=== PATIENT | female | born 1940 | race Caucasian/White ===

== ENCOUNTER → 2016-09-21 | Outpatient (REF) | payer MEDICARE, BC ==
[2016-09-21 17:39] LABS: ALBUMIN 3.3 GM/DL (3.2-5.2); ALBUMIN/GLOBULIN RATIO 0.83 (1.00-1.93); ALKALINE PHOSPHATASE 128 U/L (45-117); ALT/SGPT 38 U/L (12-78); ANION GAP 10 MEQ/L (8-16); AST/SGOT 53 U/L (15-37); BILIRUBIN,TOTAL 1.6 MG/DL (0.2-1.0); BLOOD UREA NITROGEN 17 MG/DL (7-18); CALCIUM LEVEL 8.7 MG/DL (8.8-10.2); CARBON DIOXIDE LEVEL 28 MEQ/L (21-32); CHLORIDE LEVEL 104 MEQ/L (98-107); CHOLESTEROL LEVEL 170 MG/DL (<200); CREATININE FOR GFR 0.94 MG/DL (0.55-1.02); GLOMERULAR FILTRATION RATE > 60.0 (>39); GLUCOSE, FASTING 122 MG/DL (83-110); POTASSIUM SERUM 4.1 MEQ/L (3.5-5.1); SODIUM LEVEL 142 MEQ/L (136-145); TOTAL PROTEIN 7.3 GM/DL (6.4-8.2); TRIGLYCERIDES LEVEL 107 MG/DL (<150)
[2016-09-21 17:45] LABS: BASO % 0.4 % (0.0-1.0); EOS # 0.3 K/mm3 (0.0-0.50); EOS % 5.7 % (0.0-3.0); LARGE UNSTAINED CELL # 0.2 K/mm3 (0.0-0.4); LARGE UNSTAINED CELL % 3.6 % (0.0-4.0); LYMPH # 1.6 K/mm3 (1.5-4.5); LYMPH % 33.4 % (24.0-44.0); MEAN CORPUSCULAR HEMOGLOBIN 35.2 pg (27.0-33.0); MEAN CORPUSCULAR HGB CONC 33.3 g/dl (32.0-36.5); MEAN CORPUSCULAR VOLUME 105.7 fl (80.0-96.0); MONO # 0.3 K/mm3 (0.0-0.8); MONO % 6.8 % (0.0-5.0); NEUTROPHILS # 2.5 K/mm3 (1.8-7.7); NEUTROPHILS % 50.1 % (36.0-66.0); PLATELET COUNT, AUTOMATED 143 k/mm3 (150-450); RED CELL DISTRIBUTION WIDTH 13.1 % (11.5-14.5); WHITE BLOOD COUNT 4.9 K/mm3 (4.0-10.0)
== END ==
LOC: M LABDRAWC 16:26
PROVIDERS: ATTEND Family Medicine
DX: E11.9 Type 2 diabetes mellitus without complications (principal); D51.3 Other dietary vitamin B12 deficiency anemia; E78.2 Mixed hyperlipidemia
CPT/HCPCS: 36415; 80053; 80061; 82043; 83036; 85025; 96372; J3420

== ENCOUNTER → 2017-01-18 | Outpatient (REF) | payer MEDICARE, BC ==
[2017-01-18 19:08] LABS: BASO % 0.8 % (0.0-1.0); EOS # 0.2 K/mm3 (0.0-0.50); EOS % 4.4 % (0.0-3.0); LARGE UNSTAINED CELL # 0.1 K/mm3 (0.0-0.4); LARGE UNSTAINED CELL % 2.3 % (0.0-4.0); LYMPH # 1.8 K/mm3 (1.5-4.5); MEAN CORPUSCULAR HGB CONC 33.4 g/dl (32.0-36.5); MEAN CORPUSCULAR VOLUME 107.8 fl (80.0-96.0); MONO # 0.3 K/mm3 (0.0-0.8); MONO % 6.4 % (0.0-5.0); NEUTROPHILS # 2.7 K/mm3 (1.8-7.7); NEUTROPHILS % 53.1 % (36.0-66.0); PLATELET COUNT, AUTOMATED 121 k/mm3 (150-450); RED CELL DISTRIBUTION WIDTH 13.3 % (11.5-14.5); WHITE BLOOD COUNT 5.1 K/mm3 (4.0-10.0)
[2017-01-18 19:54] LABS: ALBUMIN 2.9 GM/DL (3.2-5.2); ALBUMIN/GLOBULIN RATIO 0.74 (1.00-1.93); ALKALINE PHOSPHATASE 146 U/L (45-117); ALT/SGPT 34 U/L (12-78); ANION GAP 7 MEQ/L (8-16); AST/SGOT 41 U/L (15-37); BLOOD UREA NITROGEN 24 MG/DL (7-18); CALCIUM LEVEL 9.2 MG/DL (8.8-10.2); CARBON DIOXIDE LEVEL 29 MEQ/L (21-32); CHLORIDE LEVEL 104 MEQ/L (98-107); CHOLESTEROL LEVEL 158 MG/DL (<200); CREATININE FOR GFR 0.93 MG/DL (0.55-1.02); GLOMERULAR FILTRATION RATE > 60.0 (>39); GLUCOSE, FASTING 164 MG/DL (83-110); POTASSIUM SERUM 4.1 MEQ/L (3.5-5.1); SODIUM LEVEL 140 MEQ/L (136-145); TOTAL PROTEIN 6.8 GM/DL (6.4-8.2); TRIGLYCERIDES LEVEL 109 MG/DL (<150)
== END ==
LOC: M LABDRWCV 16:29
PROVIDERS: ATTEND Family Medicine
DX: E11.9 Type 2 diabetes mellitus without complications (principal); D51.3 Other dietary vitamin B12 deficiency anemia; E78.2 Mixed hyperlipidemia

== ENCOUNTER → 2017-04-19 | Outpatient (REF) | payer MEDICARE, BC ==
[2017-04-19 17:04] LABS: BASO % 0.5 % (0.0-1.0); EOS # 0.3 K/mm3 (0.0-0.50); EOS % 6.4 % (0.0-3.0); LARGE UNSTAINED CELL # 0.1 K/mm3 (0.0-0.4); LYMPH # 1.8 K/mm3 (1.5-4.5); LYMPH % 36.6 % (24.0-44.0); MEAN CORPUSCULAR HEMOGLOBIN 35.6 pg (27.0-33.0); MEAN CORPUSCULAR HGB CONC 33.4 g/dl (32.0-36.5); MEAN CORPUSCULAR VOLUME 106.6 fl (80.0-96.0); MONO # 0.3 K/mm3 (0.0-0.8); NEUTROPHILS # 2.2 K/mm3 (1.8-7.7); NEUTROPHILS % 47.5 % (36.0-66.0); PLATELET COUNT, AUTOMATED 130 k/mm3 (150-450); RED CELL DISTRIBUTION WIDTH 13.3 % (11.5-14.5); WHITE BLOOD COUNT 4.7 K/mm3 (4.0-10.0)
[2017-04-19 18:09] LABS: ALBUMIN/GLOBULIN RATIO 0.79 (1.00-1.93); BILIRUBIN,TOTAL 1.3 MG/DL (0.2-1.0); CALCIUM LEVEL 8.6 MG/DL (8.8-10.2); CREATININE FOR GFR 0.99 MG/DL (0.55-1.02); GLOMERULAR FILTRATION RATE 57.9 (>39); POTASSIUM SERUM 4.3 MEQ/L (3.5-5.1); TOTAL PROTEIN 6.8 GM/DL (6.4-8.2)
[2017-04-19 18:21] LABS: FOLATE 13.1 NG/ML
== END ==
LOC: M LABDRWCV 16:19
PROVIDERS: ATTEND Physician Assistant
DX: E11.9 Type 2 diabetes mellitus without complications (principal); D51.3 Other dietary vitamin B12 deficiency anemia; R74.8 Abnormal levels of other serum enzymes

== ENCOUNTER → 2017-07-21 | Outpatient (REF) | payer MEDICARE, BC ==
[2017-07-21 18:18] LABS: BASO % 0.6 % (0.0-1.0); EOS # 0.3 10^3/uL (0.0-0.50); EOS % 5.2 % (0.0-3.0); IMMATURE GRANULOCYTE % 0.2 % (0-0); LYMPH # 2.1 10^3/uL (1.5-4.5); LYMPH % 42.7 % (24.0-44.0); MEAN CORPUSCULAR HEMOGLOBIN 35.5 pg (27.0-33.0); MEAN CORPUSCULAR HGB CONC 33.3 g/dl (32.0-36.5); MEAN CORPUSCULAR VOLUME 106.5 fl (80.0-96.0); MONO # 0.6 10^3/uL (0.0-0.8); MONO % 11.2 % (0.0-5.0); NEUTROPHILS % 40.1 % (36.0-66.0); PLATELET COUNT, AUTOMATED 126 10^3/uL (150-450); RED CELL DISTRIBUTION WIDTH 13.5 % (11.5-14.5)
[2017-07-21 19:24] LABS: ALBUMIN/GLOBULIN RATIO 0.81 (1.00-1.93); CALCIUM LEVEL 9.1 MG/DL (8.8-10.2); CREATININE FOR GFR 1.11 MG/DL (0.55-1.02); GLOMERULAR FILTRATION RATE 50.6 (>39); POTASSIUM SERUM 4.2 MEQ/L (3.5-5.1); TOTAL PROTEIN 6.7 GM/DL (6.4-8.2)
== END ==
LOC: M LAB REF 17:09
PROVIDERS: ATTEND Family Medicine
DX: E78.2 Mixed hyperlipidemia (principal); E11.65 Type 2 diabetes mellitus with hyperglycemia; D51.3 Other dietary vitamin B12 deficiency anemia

== ENCOUNTER → 2017-10-20 | Outpatient (REF) | payer MEDICARE, BC ==
[2017-10-20 18:17] LABS: BASO % 0.8 % (0.0-1.0); EOS # 0.3 10^3/uL (0.0-0.50); EOS % 6.5 % (0.0-3.0); HEMATOCRIT 34.1 % (36.0-47.0); HEMOGLOBIN 11.4 g/dl (12.0-16.0); IMMATURE GRANULOCYTE % 0.2 % (0-3.0); LYMPH # 1.9 10^3/uL (1.5-4.5); LYMPH % 38.9 % (24.0-44.0); MEAN CORPUSCULAR HEMOGLOBIN 35.3 pg (27.0-33.0); MEAN CORPUSCULAR HGB CONC 33.4 g/dl (32.0-36.5); MEAN CORPUSCULAR VOLUME 105.6 fl (80.0-96.0); MONO # 0.5 10^3/uL (0.0-0.8); MONO % 11.1 % (0.0-5.0); NEUTROPHILS % 42.5 % (36.0-66.0); PLATELET COUNT, AUTOMATED 121 10^3/uL (150-450); RED BLOOD COUNT 3.23 10^6/uL (4.00-5.40); RED CELL DISTRIBUTION WIDTH 13.3 % (11.5-14.5); WHITE BLOOD COUNT 4.8 10^3/uL (4.0-10.0)
[2017-10-20 18:29] LABS: ESTIMATED AVERAGE GLUCOSE 143 MG/DL (60-110); HEMOGLOBIN A1c 6.6 %
[2017-10-20 18:59] LABS: VITAMIN B12 LEVEL 1134 PG/ML (247-911)
[2017-10-20 19:05] LABS: ALBUMIN 3.1 GM/DL (3.2-5.2); ALBUMIN/GLOBULIN RATIO 0.78 (1.00-1.93); ALKALINE PHOSPHATASE 145 U/L (45-117); ALT/SGPT 29 U/L (12-78); ANION GAP 8 MEQ/L (8-16); AST/SGOT 43 U/L (7-37); BILIRUBIN,TOTAL 1.1 MG/DL (0.2-1.0); BLOOD UREA NITROGEN 20 MG/DL (7-18); CALCIUM LEVEL 8.9 MG/DL (8.8-10.2); CARBON DIOXIDE LEVEL 29 MEQ/L (21-32); CHLORIDE LEVEL 104 MEQ/L (98-107); CHOLESTEROL LEVEL 157 MG/DL (<200); CHOLESTEROL RISK RATIO 2.616 (<5); CREATININE FOR GFR 0.96 MG/DL (0.55-1.30); GLOMERULAR FILTRATION RATE 59.8 (>39); GLUCOSE, FASTING 129 MG/DL (70-100); HDL CHOLESTEROL 60 MG/DL (>40); LDL CHOLESTEROL 76.8 MG/DL (<100); NON-HDL-C 97 MG/DL; POTASSIUM SERUM 4.3 MEQ/L (3.5-5.1); SODIUM LEVEL 141 MEQ/L (136-145); TOTAL PROTEIN 7.1 GM/DL (6.4-8.2); TRIGLYCERIDES LEVEL 101 MG/DL (<150)
[2017-10-21 13:43] LABS: REASON FOR REVIEW PLATELET MORPHOLOGY; SLIDE REVIEW Report; SOURCE PERIPHERAL SMEAR
== END ==
LOC: M LAB REF 16:20
DX: E11.22 Type 2 diabetes mellitus with diabetic chronic kidney disease (principal); D51.3 Other dietary vitamin B12 deficiency anemia; E78.2 Mixed hyperlipidemia
CPT/HCPCS: 84443

== ENCOUNTER → 2018-01-25 | Outpatient (REF) | payer MEDICARE, BC ==
[2018-01-25 19:02] LABS: ANION GAP 7 MEQ/L (8-16); BLOOD UREA NITROGEN 21 MG/DL (7-18); CALCIUM LEVEL 8.6 MG/DL (8.8-10.2); CARBON DIOXIDE LEVEL 27 MEQ/L (21-32); CHLORIDE LEVEL 107 MEQ/L (98-107); CHOLESTEROL LEVEL 149 MG/DL (<200); CHOLESTEROL RISK RATIO 2.525 (<5); CREATININE FOR GFR 1.08 MG/DL (0.55-1.30); FREE T4 1.28 NG/DL (0.76-1.46); GLOMERULAR FILTRATION RATE 52.2 (>39); GLUCOSE, FASTING 113 MG/DL (70-100); HDL CHOLESTEROL 59 MG/DL (>40); LDL CHOLESTEROL 72.6 MG/DL (<100); NON-HDL-C 90 MG/DL; POTASSIUM SERUM 4.3 MEQ/L (3.5-5.1); SODIUM LEVEL 141 MEQ/L (136-145); THYROID STIMULATING HORMONE 0.968 uIU/ML (0.358-3.740); TRIGLYCERIDES LEVEL 87 MG/DL (<150)
[2018-01-25 19:14] LABS: BASO % 0.7 % (0.0-1.0); EOS # 0.2 10^3/uL (0.0-0.50); EOS % 5.6 % (0.0-3.0); HEMATOCRIT 32.3 % (36.0-47.0); HEMOGLOBIN 10.9 g/dl (12.0-15.5); IMMATURE GRANULOCYTE % 0.2 % (0-3.0); LYMPH # 1.7 10^3/uL (1.5-4.5); LYMPH % 42.2 % (24.0-44.0); MEAN CORPUSCULAR HEMOGLOBIN 35.6 pg (27.0-33.0); MEAN CORPUSCULAR HGB CONC 33.7 g/dl (32.0-36.5); MEAN CORPUSCULAR VOLUME 105.6 fl (80.0-96.0); MONO # 0.5 10^3/uL (0.0-0.8); MONO % 11.7 % (0.0-5.0); NEUTROPHILS # 1.6 10^3/uL (1.8-7.7); NEUTROPHILS % 39.6 % (36.0-66.0); PLATELET COUNT, AUTOMATED 132 10^3/uL (150-450); RED BLOOD COUNT 3.06 10^6/uL (4.00-5.40); RED CELL DISTRIBUTION WIDTH 13.7 % (11.5-14.5); WHITE BLOOD COUNT 4.1 10^3/uL (4.0-10.0)
[2018-01-25 20:08] LABS: ESTIMATED AVERAGE GLUCOSE 126 MG/DL (60-110)
== END ==
LOC: M LABDRWAD 17:17
DX: E11.22 Type 2 diabetes mellitus with diabetic chronic kidney disease (principal); E78.2 Mixed hyperlipidemia; D64.9 Anemia, unspecified; N18.3 Chronic kidney disease, stage 3 (moderate)
CPT/HCPCS: 84443

== ENCOUNTER → 2018-04-18 | Outpatient (REF) | payer MEDICARE, BC ==
[2018-04-18 16:57] LABS: ANION GAP 9 MEQ/L (8-16); BLOOD UREA NITROGEN 22 MG/DL (7-18); CALCIUM LEVEL 9.1 MG/DL (8.8-10.2); CARBON DIOXIDE LEVEL 28 MEQ/L (21-32); CHLORIDE LEVEL 105 MEQ/L (98-107); CREATININE FOR GFR 0.95 MG/DL (0.55-1.30); GLOMERULAR FILTRATION RATE > 60.0 (>39); GLUCOSE, FASTING 97 MG/DL (70-100); POTASSIUM SERUM 4.3 MEQ/L (3.5-5.1); SODIUM LEVEL 142 MEQ/L (136-145)
[2018-04-18 17:04] LABS: ESTIMATED AVERAGE GLUCOSE 120 MG/DL (60-110); HEMOGLOBIN A1c 5.8 %
[2018-04-18 17:10] LABS: BASO % 0.4 % (0.0-1.0); EOS # 0.2 10^3/uL (0.0-0.50); EOS % 4.7 % (0.0-3.0); HEMATOCRIT 33.7 % (36.0-47.0); HEMOGLOBIN 11.4 g/dl (12.0-15.5); IMMATURE GRANULOCYTE % 0.2 % (0-3.0); LYMPH # 1.7 10^3/uL (1.5-4.5); LYMPH % 33.1 % (24.0-44.0); MEAN CORPUSCULAR HEMOGLOBIN 36.3 pg (27.0-33.0); MEAN CORPUSCULAR HGB CONC 33.8 g/dl (32.0-36.5); MEAN CORPUSCULAR VOLUME 107.3 fl (80.0-96.0); MONO # 0.6 10^3/uL (0.0-0.8); MONO % 12.4 % (0.0-5.0); NEUTROPHILS # 2.5 10^3/uL (1.8-7.7); NEUTROPHILS % 49.2 % (36.0-66.0); PLATELET COUNT, AUTOMATED 133 10^3/uL (150-450); RED BLOOD COUNT 3.14 10^6/uL (4.00-5.40); RED CELL DISTRIBUTION WIDTH 14.1 % (11.5-14.5); WHITE BLOOD COUNT 5.1 10^3/uL (4.0-10.0)
== END ==
LOC: M SFHCLERA 16:14
DX: E11.22 Type 2 diabetes mellitus with diabetic chronic kidney disease (principal)
CPT/HCPCS: 83036

== ENCOUNTER → 2018-07-28 | Outpatient (REF) | payer MEDICARE, BC ==
[2018-07-28 17:51] LABS: BASO % 0.8 % (0.0-1.0); EOS # 0.3 10^3/uL (0.0-0.50); EOS % 5.4 % (0.0-3.0); HEMATOCRIT 33.1 % (36.0-47.0); HEMOGLOBIN 10.9 g/dl (12.0-15.5); IMMATURE GRANULOCYTE % 0.2 % (0-3.0); LYMPH # 1.9 10^3/uL (1.5-4.5); LYMPH % 36.7 % (24.0-44.0); MEAN CORPUSCULAR HEMOGLOBIN 35.7 pg (27.0-33.0); MEAN CORPUSCULAR HGB CONC 32.9 g/dl (32.0-36.5); MEAN CORPUSCULAR VOLUME 108.5 fl (80.0-96.0); MONO # 0.6 10^3/uL (0.0-0.8); MONO % 11.2 % (0.0-5.0); NEUTROPHILS # 2.4 10^3/uL (1.8-7.7); NEUTROPHILS % 45.7 % (36.0-66.0); PLATELET COUNT, AUTOMATED 137 10^3/uL (150-450); RED BLOOD COUNT 3.05 10^6/uL (4.00-5.40); RED CELL DISTRIBUTION WIDTH 14.1 % (11.5-14.5); WHITE BLOOD COUNT 5.2 10^3/uL (4.0-10.0)
[2018-07-28 18:00] LABS: ANION GAP 7 MEQ/L (8-16); BLOOD UREA NITROGEN 22 MG/DL (7-18); CALCIUM LEVEL 9.1 MG/DL (8.8-10.2); CARBON DIOXIDE LEVEL 29 MEQ/L (21-32); CHLORIDE LEVEL 105 MEQ/L (98-107); CHOLESTEROL LEVEL 167 MG/DL (<200); CHOLESTEROL RISK RATIO 2.737 (<5); CREATININE FOR GFR 1.01 MG/DL (0.55-1.30); FREE T4 1.24 NG/DL (0.76-1.46); GLOMERULAR FILTRATION RATE 56.3 (>39); GLUCOSE, FASTING 97 MG/DL (70-100); HDL CHOLESTEROL 61 MG/DL (>40); LDL CHOLESTEROL 90 MG/DL (<100); NON-HDL-C 106 MG/DL; POTASSIUM SERUM 4.4 MEQ/L (3.5-5.1); SODIUM LEVEL 141 MEQ/L (136-145); TRIGLYCERIDES LEVEL 78 MG/DL (<150)
[2018-07-28 18:43] LABS: ESTIMATED AVERAGE GLUCOSE 126 MG/DL (60-110)
== END ==
LOC: M LABDRWCV 16:04
DX: Z00.00 Encounter for general adult medical examination without abnormal findings (principal); E78.2 Mixed hyperlipidemia; E11.22 Type 2 diabetes mellitus with diabetic chronic kidney disease; D51.3 Other dietary vitamin B12 deficiency anemia
CPT/HCPCS: 84443

== ENCOUNTER → 2018-10-27 | Outpatient (REF) | payer MEDICARE, BC ==
[2018-10-27 17:18] LABS: ALBUMIN 3.1 GM/DL (3.2-5.2); ALT/SGPT 36 U/L (12-78); BILIRUBIN,TOTAL 1.1 MG/DL (0.2-1.0); BLOOD UREA NITROGEN 20 MG/DL (7-18); CARBON DIOXIDE LEVEL 28 MEQ/L (21-32); CHLORIDE LEVEL 105 MEQ/L (98-107); CHOLESTEROL LEVEL 178 MG/DL (<200); CHOLESTEROL RISK RATIO 2.825 (<5); CREATININE FOR GFR 0.91 MG/DL (0.55-1.30); GLOMERULAR FILTRATION RATE > 60.0 (>39); GLUCOSE, FASTING 87 MG/DL (70-100); HDL CHOLESTEROL 63 MG/DL (>40); LDL CHOLESTEROL 97 MG/DL (<100); NON-HDL-C 115 MG/DL; POTASSIUM SERUM 4.5 MEQ/L (3.5-5.1); SODIUM LEVEL 140 MEQ/L (136-145); TOTAL PROTEIN 6.9 GM/DL (6.4-8.2); TRIGLYCERIDES LEVEL 90 MG/DL (<150)
[2018-10-27 18:13] LABS: HEMOGLOBIN A1c 5.3 %
[2018-10-27 18:17] LABS: CREATININE, URINE 28.4 MG/DL; MALB URINE SIEMENS < 5.0 MG/L; MAU/CREAT RATIO 17.6 MCG/MG (0.0-30.0)
== END ==
LOC: M LABDRAWC 16:00 → M LABDRWCV 16:00
PROVIDERS: ATTEND Family Medicine
DX: E11.22 Type 2 diabetes mellitus with diabetic chronic kidney disease (principal); E78.2 Mixed hyperlipidemia
CPT/HCPCS: 36415; 80053; 80061; 82043; 83036; 84443; 96372; J3420

== ENCOUNTER → 2019-01-25 | Outpatient (REF) | payer MEDICARE, BC ==
[2019-01-25 17:04] LABS: CALCIUM LEVEL 9.1 MG/DL (8.8-10.2); CREATININE FOR GFR 0.96 MG/DL (0.55-1.30); GLOMERULAR FILTRATION RATE 59.7 (>39); POTASSIUM SERUM 4.4 MEQ/L (3.5-5.1)
[2019-01-25 18:42] LABS: HEMOGLOBIN A1c 5.2 %
== END ==
LOC: M LABDRAWC 16:13
PROVIDERS: ATTEND Physician Assistant
DX: E11.22 Type 2 diabetes mellitus with diabetic chronic kidney disease (principal)
CPT/HCPCS: 36415; 80048; 83036; 96372; J3420

== ENCOUNTER → 2019-04-20 | Outpatient (REF) | payer MEDICARE, BC ==
[2019-04-20 13:26] LABS: CALCIUM LEVEL 8.9 MG/DL (8.8-10.2); CREATININE FOR GFR 1.11 MG/DL (0.55-1.30); GLOMERULAR FILTRATION RATE 50.5 (>39); POTASSIUM SERUM 4.4 MEQ/L (3.5-5.1)
== END ==
LOC: M LABDRWCV 12:07
PROVIDERS: ATTEND Internal Medicine Cardiovascular Disease
DX: I10 Essential (primary) hypertension (principal)

== ENCOUNTER → 2019-05-03 | Outpatient (REF) | payer MEDICARE, BC ==
[2019-05-03 20:46] LABS: BASO % 0.6 % (0.0-1.0); EOS # 0.2 10^3/uL (0.0-0.50); EOS % 5.1 % (0.0-3.0); HEMATOCRIT 34.1 % (36.0-47.0); HEMOGLOBIN 11.5 g/dl (12.0-15.5); LYMPH # 1.5 10^3/uL (1.5-4.5); LYMPH % 32.1 % (24.0-44.0); MEAN CORPUSCULAR HGB CONC 33.7 g/dl (32.0-36.5); MEAN CORPUSCULAR VOLUME 109.6 fl (80.0-96.0); MONO # 0.6 10^3/uL (0.0-0.8); NEUTROPHILS # 2.4 10^3/uL (1.8-7.7); PLATELET COUNT, AUTOMATED 119 10^3/uL (150-450); RED BLOOD COUNT 3.11 10^6/uL (4.00-5.40); WHITE BLOOD COUNT 4.7 10^3/uL (4.0-10.0)
[2019-05-03 20:48] LABS: BILIRUBIN,TOTAL 1.4 MG/DL (0.2-1.0); CALCIUM LEVEL 9.2 MG/DL (8.8-10.2); CHOLESTEROL RISK RATIO 2.611 (<5); CREATININE FOR GFR 1.01 MG/DL (0.55-1.30); FREE T4 1.45 NG/DL (0.76-1.46); GLOMERULAR FILTRATION RATE 56.3 (>39); POTASSIUM SERUM 4.6 MEQ/L (3.5-5.1); THYROID STIMULATING HORMONE 1.62 uIU/ML (0.358-3.740); TOTAL PROTEIN 6.9 GM/DL (6.4-8.2)
== END ==
LOC: M LABDRWCV 16:37
PROVIDERS: ATTEND Family Medicine
DX: E11.22 Type 2 diabetes mellitus with diabetic chronic kidney disease (principal); E78.2 Mixed hyperlipidemia

== ENCOUNTER → 2019-08-08 | Outpatient (REF) | payer MEDICARE, BC ==
[2019-08-08 17:07] LABS: ALBUMIN 2.9 GM/DL (3.2-5.2); BILIRUBIN,TOTAL 1.5 MG/DL (0.2-1.0); CREATININE FOR GFR 0.99 MG/DL (0.55-1.30); GLOMERULAR FILTRATION RATE 57.5 (>32); POTASSIUM SERUM 4.6 MEQ/L (3.5-5.1); TOTAL PROTEIN 6.8 GM/DL (6.4-8.2)
== END ==
LOC: M LABDRWCV 16:16
PROVIDERS: ATTEND Physician Assistant
DX: E11.22 Type 2 diabetes mellitus with diabetic chronic kidney disease (principal)

== ENCOUNTER → 2019-12-26 | Outpatient (REF) | payer MEDICARE, BC ==
[2019-12-26 11:29] LABS: BASO % 0.6 % (0.0-1.0); EOS # 0.3 10^3/uL (0.0-0.5); EOS % 5.3 % (0.0-3.0); HEMATOCRIT 32.5 % (36.0-47.0); HEMOGLOBIN 11.1 g/dl (12.0-15.5); LYMPH % 42.3 % (24.0-44.0); MEAN CORPUSCULAR HEMOGLOBIN 36.8 pg (27.0-33.0); MEAN CORPUSCULAR HGB CONC 34.2 g/dl (32.0-36.5); MEAN CORPUSCULAR VOLUME 107.6 fl (80.0-96.0); MONO # 0.6 10^3/uL (0.0-0.8); MONO % 11.8 % (0.0-5.0); NEUTROPHILS # 1.9 10^3/uL (1.5-8.5); NEUTROPHILS % 39.8 % (36.0-66.0); PLATELET COUNT, AUTOMATED 138 10^3/uL (150-450); RED BLOOD COUNT 3.02 10^6/uL (4.00-5.40); WHITE BLOOD COUNT 4.8 10^3/uL (4.0-10.0)
[2019-12-26 11:44] LABS: ALT/SGPT 26 U/L (12-78); BILIRUBIN,DIRECT 0.5 MG/DL (0.0-0.2); BILIRUBIN,TOTAL 1.5 MG/DL (0.2-1.0); BLOOD UREA NITROGEN 27 MG/DL (7-18); CARBON DIOXIDE LEVEL 27 MEQ/L (21-32); CHLORIDE LEVEL 107 MEQ/L (98-107); CHOLESTEROL LEVEL 169 MG/DL (<200); CREATININE FOR GFR 1.04 MG/DL (0.55-1.30); FREE T4 1.31 NG/DL (0.76-1.46); GLOMERULAR FILTRATION RATE 54.3 (>32); GLUCOSE, FASTING 111 MG/DL (70-100); HDL CHOLESTEROL 66 MG/DL (>40); LDL CHOLESTEROL 87 MG/DL (<100); NON-HDL-C 103 MG/DL; POTASSIUM SERUM 4.5 MEQ/L (3.5-5.1); SODIUM LEVEL 140 MEQ/L (136-145); TOTAL PROTEIN 7.2 GM/DL (6.4-8.2); TRIGLYCERIDES LEVEL 78 MG/DL (<150)
[2019-12-27 09:12] LABS: HEPATITIS B SURFACE ANTIGEN NEGATIVE (NEGATIVE)
[2019-12-27 09:38] LABS: HEPATITIS C VIRUS ABY INDEX 0.1 INDEX (<0.8)
[2019-12-27 09:40] LABS: HEPATITIS B CORE ANTIBODY IGM NEGATIVE (NEGATIVE)
[2019-12-27 09:42] LABS: HEPATITIS A ANTIBODY IGM NEGATIVE (NEGATIVE)
== END ==
LOC: M LABDRAWC 08:47
PROVIDERS: ATTEND Physician Assistant
DX: R94.5 Abnormal results of liver function studies (principal); E11.22 Type 2 diabetes mellitus with diabetic chronic kidney disease; E78.2 Mixed hyperlipidemia
CPT/HCPCS: 36415; 80053; 80061; 82248; 84439; 84443; 85025; 86705; 86709; 86803; 87340; 96372; J3420

== ENCOUNTER → 2020-03-13 | Outpatient (REF) | payer MEDICARE, BC ==
[2020-03-13 12:46] LABS: BASO % 0.5 % (0.0-1.0); EOS # 0.2 10^3/uL (0.0-0.5); EOS % 5.5 % (0.0-3.0); HEMATOCRIT 31.7 % (36.0-47.0); LYMPH # 1.4 10^3/uL (1.5-5.0); LYMPH % 32.1 % (24.0-44.0); MEAN CORPUSCULAR HEMOGLOBIN 36.5 pg (27.0-33.0); MEAN CORPUSCULAR HGB CONC 34.7 g/dl (32.0-36.5); MEAN CORPUSCULAR VOLUME 105.3 fl (80.0-96.0); MONO # 0.7 10^3/uL (0.0-0.8); MONO % 14.8 % (0.0-5.0); NEUTROPHILS # 2.1 10^3/uL (1.5-8.5); NEUTROPHILS % 46.6 % (36.0-66.0); PLATELET COUNT, AUTOMATED 109 10^3/uL (150-450); RED BLOOD COUNT 3.01 10^6/uL (4.00-5.40); WHITE BLOOD COUNT 4.4 10^3/uL (4.0-10.0)
[2020-03-13 13:03] LABS: CHOLESTEROL RISK RATIO 2.16 (<5); PERCENT SATURATION 47.3 % (13.2-45.0)
[2020-03-13 13:24] LABS: HEMOGLOBIN A1c 5.9 %
[2020-03-13 18:19] LABS: ALBUMIN 3.3 GM/DL (3.2-5.2); BILIRUBIN,TOTAL 1.4 MG/DL (0.2-1.0); CALCIUM LEVEL 9.6 MG/DL (8.8-10.2); CREATININE FOR GFR 1.35 MG/DL (0.55-1.30); GLOMERULAR FILTRATION RATE 40.2 (>32); POTASSIUM SERUM 5.7 MEQ/L (3.5-5.1); TOTAL PROTEIN 7.4 GM/DL (6.4-8.2)
== END ==
LOC: M LABDRAWC 11:29
PROVIDERS: ATTEND Family Medicine
DX: I48.91 Unspecified atrial fibrillation (principal); E11.22 Type 2 diabetes mellitus with diabetic chronic kidney disease; E78.2 Mixed hyperlipidemia

== ENCOUNTER → 2020-03-22 | Outpatient (REF) | payer MEDICARE, BC ==
[~2020-03-22] MED LIST: ASPI81TA26 PO; ATEN25TA PO; B-121KIT INJ; CO Q10CA PO; DIGO0.123 PO; METF-838; METF500T13 PO; TORS5TAB2 PO; XARE20TA PO
[2020-03-22 17:30] LABS: BASO % 0.4 % (0.0-1.0); EOS # 0.2 10^3/uL (0.0-0.5); HEMATOCRIT 32.9 % (36.0-47.0); HEMOGLOBIN 11.1 g/dl (12.0-15.5); LYMPH # 1.1 10^3/uL (1.5-5.0); LYMPH % 24.1 % (24.0-44.0); MEAN CORPUSCULAR HEMOGLOBIN 36.4 pg (27.0-33.0); MEAN CORPUSCULAR HGB CONC 33.7 g/dl (32.0-36.5); MEAN CORPUSCULAR VOLUME 107.9 fl (80.0-96.0); MONO # 0.6 10^3/uL (0.0-0.8); MONO % 13.6 % (0.0-5.0); NEUTROPHILS # 2.6 10^3/uL (1.5-8.5); NEUTROPHILS % 57.5 % (36.0-66.0); PLATELET COUNT, AUTOMATED 109 10^3/uL (150-450); RED BLOOD COUNT 3.05 10^6/uL (4.00-5.40); WHITE BLOOD COUNT 4.5 10^3/uL (4.0-10.0)
[2020-03-22 18:01] LABS: ALBUMIN 2.9 GM/DL (3.2-5.2); BILIRUBIN,TOTAL 1.3 MG/DL (0.2-1.0); CALCIUM LEVEL 8.8 MG/DL (8.8-10.2); CREATININE FOR GFR 1.44 MG/DL (0.55-1.30); GLOMERULAR FILTRATION RATE 37.3 (>32); MAGNESIUM LEVEL 1.5 MG/DL (1.8-2.4); POTASSIUM SERUM 4.9 MEQ/L (3.5-5.1); TOTAL PROTEIN 6.7 GM/DL (6.4-8.2)
== END ==
LOC: M LABDRAWC 15:45
PROVIDERS: ATTEND Internal Medicine
DX: E87.6 Hypokalemia (principal); E87.1 Hypo-osmolality and hyponatremia; E87.8 Other disorders of electrolyte and fluid balance, not elsewhere classified; I48.91 Unspecified atrial fibrillation; R74.8 Abnormal levels of other serum enzymes; Z79.82 Long term (current) use of aspirin

== ENCOUNTER → 2020-04-02 | Outpatient (REF) | payer MEDICARE, BC ==
[2020-04-02 13:25] LABS: HEMATOCRIT 33.4 % (36.0-47.0); HEMOGLOBIN 11.4 g/dl (12.0-15.5); MEAN CORPUSCULAR HEMOGLOBIN 36.4 pg (27.0-33.0); MEAN CORPUSCULAR HGB CONC 34.1 g/dl (32.0-36.5); MEAN CORPUSCULAR VOLUME 106.7 fl (80.0-96.0); PLATELET COUNT, AUTOMATED 119 10^3/uL (150-450); RED BLOOD COUNT 3.13 10^6/uL (4.00-5.40); WHITE BLOOD COUNT 10.1 10^3/uL (4.0-10.0)
[2020-04-02 13:45] LABS: LYMPHOCYTES 16 % (16-44); MONOCYTES 2 % (0-5); NEUTROPHILS 82 % (28-66); PLATELET ESTIMATE NORMAL (NORMAL)
[2020-04-02 14:02] LABS: ALBUMIN 2.6 GM/DL (3.2-5.2); BILIRUBIN,TOTAL 2.3 MG/DL (0.2-1.0); CALCIUM LEVEL 8.8 MG/DL (8.8-10.2); CHOLESTEROL RISK RATIO 2.69 (<5); CREATININE FOR GFR 1.67 MG/DL (0.55-1.30); GLOMERULAR FILTRATION RATE 31.4 (>32); POTASSIUM SERUM 4.1 MEQ/L (3.5-5.1); TOTAL PROTEIN 6.2 GM/DL (6.4-8.2)
== END ==
LOC: M LABDRAWC 13:07
PROVIDERS: ATTEND Family Medicine
DX: N18.3 Chronic kidney disease, stage 3 (moderate) (principal); E78.2 Mixed hyperlipidemia; I48.20 Chronic atrial fibrillation, unspecified; R74.8 Abnormal levels of other serum enzymes
CPT/HCPCS: 36415; 80053; 80061; 83690; 85025; 96372; J3420

== ENCOUNTER 2020-05-02 08:49 | Inpatient (IN) | payer MEDICARE, BC ==
[2020-05-02] VITALS (38 sets, daily range): BP systolic 64–126; BP diastolic 30–57
[~2020-05-02] VITALS: Ht 154.9 cm; Wt 96.8 kg
[2020-05-02] MEDS ORDERED: NS 500 ML IV ONE (09:15)
[2020-05-02] MEDS ORDERED: METF-838 (09:15)
[2020-05-02] MEDS ORDERED: XARE20TA PO (09:15)
[2020-05-02] MEDS ORDERED: DIGO0.123 PO (09:15)
[2020-05-02] MEDS ORDERED: NS 1,000 ML IV ONE (09:15)
[2020-05-02] MEDS ORDERED: TORS5TAB2 PO (09:15)
--- NOTE | 2020-05-02 09:28 | REPVR ---
PROCEDURE INFORMATION: Exam: CT Head Without Contrast Exam date and time: 05/02/2020 9:12 AM Age: 79 years old Clinical indication: Altered mental status/memory loss TECHNIQUE: Imaging protocol: Computed tomography of the head without contrast. Radiation optimization: All CT scans at this facility use at least one of these dose optimization techniques: automated exposure control; mA and/or kV adjustment per patient size (includes targeted exams where dose is matched to clinical indication); or iterative reconstruction. COMPARISON: No relevant prior studies available. FINDINGS: Brain: There is no acute intracranial hemorrhage or mass effect. Mild diffuse volume loss is within the range of normal for patient age. There are small vessel ischemic changes within the periventricular and subcortical white matter, but the normal fitzgerald/white matter delineation is maintained. Ventricles: Normal. No ventriculomegaly. Bones/joints: Unremarkable. No acute fracture. Sinuses: Visualized sinuses are unremarkable. No fluid levels. Mastoid air cells: Visualized mastoid air cells are well aerated. Soft tissues: Unremarkable. IMPRESSION: No acute intracranial hemorrhage or edema. Electronically signed by: Delicia Roa On 05/02/2020 09:28:26 AM
[2020-05-02] MEDS ORDERED: cefTRIAXone SOD 2 GM in D5W MINI-BAG PLUS 50 ML IV ONE (09:30)
[2020-05-02] MEDS ORDERED: NS 2,660 ML in IV 1 EA IV ONE (09:30)
[2020-05-02 10:23] LABS: VENOUS BASE EXCESS -1.9 (-2.0-2.0); VENOUS HCO3 23.3 MEQ/L (23.0-27.0); VENOUS PARTIAL PRESSURE CO2 41.6 mmHg (38.0-50.0); VENOUS PARTIAL PRESSURE O2 140.3 mmHg (30.0-50.0); VENOUS PH 7.367 UNITS (7.330-7.430); VENOUS STANDARD HCO3 22.9 MEQ/L; VENOUS TOTAL CO2 24.6 MEQ/L (24.0-28.0)
[2020-05-02 10:27] LABS: BILIRUBIN, URINE MANUAL NEGATIVE (NEGATIVE); GLUCOSE, URINE (UA) MANUAL NEGATIVE (NEGATIVE); KETONE, URINE MANUAL NEGATIVE (NEGATIVE); UROBILINOGEN, URINE MANUAL NORMAL (NORMAL)
[2020-05-02] MEDS ORDERED: ATEN25TA PO (10:40)
[2020-05-02] MEDS ORDERED: ASPI81TA26 PO (10:40)
[2020-05-02] MEDS ORDERED: CO Q10CA PO (10:40)
[2020-05-02] MEDS ORDERED: METF500T13 PO (10:42)
[2020-05-02 10:43] LABS: BASO % 0.2 % (0.0-1.0); EOS % 0.1 % (0.0-3.0); HEMATOCRIT 38.7 % (36.0-47.0); LYMPH # 0.9 10^3/uL (1.5-5.0); LYMPH % 5.3 % (24.0-44.0); MEAN CORPUSCULAR HEMOGLOBIN 36.6 pg (27.0-33.0); MEAN CORPUSCULAR HGB CONC 36.2 g/dl (32.0-36.5); MONO # 0.9 10^3/uL (0.0-0.8); MONO % 5.4 % (0.0-5.0); NEUTROPHILS # 14.6 10^3/uL (1.5-8.5); RED BLOOD COUNT 3.83 10^6/uL (4.00-5.40); WHITE BLOOD COUNT 16.6 10^3/uL (4.0-10.0)
[2020-05-02] MEDS ORDERED: B-121KIT INJ (10:48)
[2020-05-02 11:07] LABS: VENOUS PARTIAL PRESSURE O2 97.8 mmHg (30.0-50.0)
[2020-05-02 11:08] LABS: VENOUS BASE EXCESS -2.8 (-2.0-2.0); VENOUS HCO3 22.7 MEQ/L (23.0-27.0); VENOUS O2 SATURATION 97.2 % (60.0-80.0); VENOUS STANDARD HCO3 22.2 MEQ/L
[2020-05-02 11:12] LABS: RBC, URINE 0-1 /hpf (0-3)
[2020-05-02 11:13] LABS: AMORPHOUS SEDIMENT, URINE MOD AMOUNT (NEGATIVE)
[2020-05-02 11:14] LABS: SQUAMOUS EPITHELIAL CELL URINE SMALL AMOUNT /hpf (SMALL AMT)
[2020-05-02 11:19] LABS: ALBUMIN 1.5 GM/DL (3.2-5.2); BILIRUBIN,TOTAL 2.3 MG/DL (0.2-1.0); CALCIUM LEVEL 7.9 MG/DL (8.8-10.2); CREATININE FOR GFR 2.51 MG/DL (0.55-1.30); DIGOXIN LEVEL 1.9 NG/ML (0.5-2.0); GLOMERULAR FILTRATION RATE 19.6 (>32); THYROID STIMULATING HORMONE 4.47 uIU/ML (0.358-3.740); TOTAL PROTEIN 4.9 GM/DL (6.4-8.2); TROPONIN I 0.1 NG/ML (< 0.10)
--- NOTE | 2020-05-02 11:21 | REPVR ---
PROCEDURE INFORMATION: Exam: XR Chest, 1 View Exam date and time: 05/02/2020 11:09 AM Age: 79 years old Clinical indication: Shortness of breath TECHNIQUE: Imaging protocol: XR of the chest Views: 1 view. COMPARISON: No relevant prior studies available. FINDINGS: Lungs: There are low lung volumes. Pleural space: Unremarkable. No pleural effusion. No pneumothorax. Heart/Mediastinum: Unremarkable. No cardiomegaly. Diaphragm: There is apparent elevation of the right hemidiaphragm with there is an increased density as well as air-filled loops of bowel projecting over the right lower chest. Bones/joints: Unremarkable. IMPRESSION: There are low volumes with elevation the right hemidiaphragm and prominent bowel and increased density within the right lower chest. Comparison with preceding examinations is recommended. Electronically signed by: Delicia Roa On 05/02/2020 11:21:04 AM
[2020-05-02 11:22] LABS: BILIRUBIN,DIRECT 0.8 MG/DL (0.0-0.2); MB/CK RELATIVE INDEX 11.85 (< OR =4)
[2020-05-02 11:26] LABS: PLATELET COUNT, AUTOMATED 84 10^3/uL (150-450)
[2020-05-02] MEDS ORDERED: DEXTROSE 50% 50 ML SYRINGE IV STA (11:32)
[2020-05-02] MEDS ORDERED: CALCIUM CHLORIDE 10% 1 GM/10 ML SYR IV STA (11:32)
[2020-05-02] MEDS ORDERED: HumuLIN R (REGULAR) INSULIN (NovoLIN R) **100U/ML** PER UNIT IV ONE (11:45)
[2020-05-02] MEDS ORDERED: DOPamine 400 MG/500 ML BAG IN D5W (800MCG/ML) (J1265) As Ordered ONE (12:02)
[2020-05-02] MEDS ORDERED: DOPamine HCL 400 MG in IV 1 EA IV SCH ×2 (12:15→13:00)
[2020-05-02] MEDS ORDERED: DOPamine HCL 800 MG in IV 1 EA IV SCH (12:15)
[2020-05-02 12:48] LABS: INR 4.92
[2020-05-02 12:49] LABS: PARTIAL THROMBOPLASTIN TIME 60.6 SECONDS (25.0-38.4)
[2020-05-02] MEDS ORDERED: NS 1,000 ML IV SCH (13:18)
[2020-05-02 13:29] LABS: BACTERIA, URINE NONE SEEN
[2020-05-02] MEDS ORDERED: ALBUTEROL SULFATE 2.5 MG/0.5 ML INH NEB SOLN NEB PRN (13:30)
--- NOTE | 2020-05-02 13:35 | REPVR ---
PROCEDURE INFORMATION: Exam: CT Chest Without Contrast Exam date and time: 05/02/2020 1:03 PM Age: 79 years old Clinical indication: Other: Hypotension TECHNIQUE: Imaging protocol: Computed tomography of the chest without contrast. Radiation optimization: All CT scans at this facility use at least one of these dose optimization techniques: automated exposure control; mA and/or kV adjustment per patient size (includes targeted exams where dose is matched to clinical indication); or iterative reconstruction. COMPARISON: CR PORTABLE CHEST X-RAY 05/02/2020 11:09 AM FINDINGS: Lungs: Unremarkable. No consolidation. No masses. Pleural space: Unremarkable. No pneumothorax. No pleural effusion. Heart: Unremarkable. No cardiomegaly. No pericardial effusion. Aorta: Unremarkable. No aortic aneurysm. Lymph nodes: Unremarkable. No enlarged lymph nodes. Diaphragm: There is asymmetrical elevation of the right hemidiaphragm. Gallbladder and bile ducts: The gallbladder is surgically absent. Bones/joints: Unremarkable. No acute fracture. Soft tissues: There is extensive soft tissue induration involving the left lateral chest. IMPRESSION: 1. Extensive soft tissue induration involving the left lateral chest. 2. No acute thoracic abnormality. Electronically signed by: Delicia Roa On 05/02/2020 13:36:13 PM
--- NOTE | 2020-05-02 13:38 | REPVR ---
PROCEDURE INFORMATION: Exam: CT Abdomen And Pelvis Without Contrast Exam date and time: 05/02/2020 1:03 PM Age: 79 years old Clinical indication: Other: Hypotension TECHNIQUE: Imaging protocol: Computed tomography of the abdomen and pelvis without contrast. Radiation optimization: All CT scans at this facility use at least one of these dose optimization techniques: automated exposure control; mA and/or kV adjustment per patient size (includes targeted exams where dose is matched to clinical indication); or iterative reconstruction. COMPARISON: No relevant prior studies available. FINDINGS: Liver: Normal. No mass. Gallbladder and bile ducts: The gallbladder is surgically absent. Pancreas: There increased peripancreatic inflammatory changes, suggestive of acute pancreatitis. Spleen: Normal. No splenomegaly. Adrenals: There is diffuse nodular thickening of the left adrenal gland. Kidneys and ureters: Normal. No hydronephrosis. Stomach and bowel: Unremarkable. No obstruction. No mucosal thickening. Appendix: No evidence of appendicitis. Intraperitoneal space: Unremarkable. No free air. No significant fluid collection. Vasculature: There are coarse calcific atherosclerotic changes of the left anterior descending coronary artery. Lymph nodes: Unremarkable. No enlarged lymph nodes. Bladder: Unremarkable as visualized. Reproductive: Unremarkable as visualized. Bones/joints: Unremarkable. No acute fracture. Soft tissues: There is increased soft tissue induration along the left lateral breast/chest. IMPRESSION: Findings suggestive of acute pancreatitis. Correlation with serum amylase and lipase levels is recommended. Electronically signed by: Delicia Roa On 05/02/2020 13:38:30 PM
[2020-05-02] MEDS ORDERED: SOD POLYSTYRENE SULFONATE SUSP 30 GM/120 ML ENEMA PR ONE (13:45)
--- NOTE | 2020-05-02 13:54 | HPEPDOC ---
General Date of Admission Date of Service: May 02, 2020 Attending Physician: A Chief Complaint The patient is a 79-year-old female admitted with a reason for visit of [facility] History of Present Illness Ms. Stevens is a 79 year old elderly woman, with known history of diabetes mellitus type II, CAD 2009 PCI, Hypertension, CKD, stage ?; atrial fibrillation, with chronic anticoagulation with xarelto, presented to hospital due confusion. History provided by patient's , Jovanny Stevens. He mentioned that patient started to get sick early March and admitted at [facility], for hyponatremia and hyperkalemia, along with UTI. She was discharge home with antibiotics, but had been quite weak, no rehab placement. Patient had been doing fine after this hospitalization. However, in the past week, patient had been complaining of being weak, encouraged her to see a doctor but patient declined. He noticed that in the past 4 days, patient had been forge tful, but not outright confused. patient not eating or drinking well, but denies any vomiting, or abdominal pain. No mention of fever, or cough, or diarrhea. She was supposed to follow up with Dr. Akbar today. noticed that she has been sleeping a lot, which is unusual. She woke up today, sat on the bed, and noted she did not move and just sitting, not responding to him thus EMS was called. On arrival to ED, patient was severely hypotension, 80s systolic and hypothermic. patient was quite lethagic, almost obtunded as per ED. Given sepsis bolus, and initially BP improved but became hypotensive again and thus right central line placed, and started on dopamine and currently at 10 mcg. Work-up revealed patient had hyperkalemia, renal failure, severe lactic acidosis. CXR and CT head did not show acute findings. Noted elevated right hemidiaphragm per report. (unable to view any images in the system). Patient emprically started on IV rocephin [address] chest and abdomen due to severe lactic acidosis. I saw patient in ED, at bedside. Patient is more awake and able to speak, follows some commands, but unable to tell me much. Not in acute respiratory distress. Abdomen is soft, not tender, no rigidity. Home Medications Scheduled Aspirin (Aspirin EC) 81 Mg Tablet., 81 MG PO DAILY, (Reported) Atenolol (Atenolol) 25 Mg Tablet, 50 MG PO BID, (Reported) Cyanocobalamin (Vitamin B-12) (B-12 Compliance) 1,000 Mcg/1 Ml Kit, 1,000 MCG INJ MTHLY, (Reported) Digoxin (Digoxin) 125 Mcg Tablet, 125 MCG PO DAILY, (Reported) Metformin HCl (Metformin HCl) 500 Mg Tablet, 500 MG PO DAILY, (Reported) Rivaroxaban (Xarelto) 20 Mg Tablet, 20 MG PO QHS, (Reported) Torsemide (Torsemide) 5 Mg Tablet, 10 MG PO DAILY, (Reported) Ubidecarenone (Co Q-10) 10 Mg Capsule, 10 MG PO DAILY, (Reported) Allergies Coded Allergies: latex (Verified Allergy, Intermediate, RASH, 05/02/20) Past Medical History Medical History PAST MEDICAL HISTORY: Hypertension Diabetes mellitus type II CKD, unknown stage, not a dialysis patient Afib on xarelto CAD with PCI 2008 LAD stent PAST SURGICAL HISTORY: cholecystectomy (although unsure about this). tubal ligation. A-FIB/CHADSVASC A-FIB History Current/History of A-Fib/PAF?: No Current PO Anticoag Therapy: Yes Age/Risk Factor Scoring CHADSVASC: CHADSVASC Response (Comments) Value Age Risk Factor Age >/= 75 years old 2 Gender Risk Factor Female 1 Hx of CHF No 0 Hx of HTN Yes 1 Hx of Stroke/TIA/or VTE No 0 Hx of Diabetes Yes 1 Total 5 Treatment Treatment ordered: Holding Other Reason Anticoagulant not given: Other Other reason anticoagulant not: renal failure Review of Systems Constitutional: Denies: Chills, Fever, Night Sweats Eyes: Denies: Pain, Vision change ENT: Denies: Head Aches, Ear Pain, Dysphagia Skin: Denies: Rash, Lesions, Breakdown Pulmonary: Denies: Dyspnea, Cough Cardiovascular: Denies: Chest Pain, Palpitations, Orthopnea, Paroxysmal Noc. Dyspnea, Lt Headedness Gastrointestinal: Denies: Nausea, Vomiting, Abdominal Pain, Diarrhea Genitourinary: Denies: Dysuria, Frequency, Incontinence, Retention Hematologic: Denies: Bruising, Bleeding Excessively Musculoskeletal: Denies: Neck Pain, Back Pain, Joint Pain, Muscle Pain, Spasms Neurological: Denies: Weakness, Numbness, Change in speech, Confusion Psych: Reports: Mood Normal; Denies: Depression, Memory Issues Other systems Unable to obtain thorough ROS due to patient's current mental state Vital Signs Vital Signs Date Time Temp Pulse Resp B/P (MAP) Pulse Ox O2 Delivery O2 Flow Rate FiO2 05/02/20 10:52 88.0 36 18 91/44 (60) 95 Room Air lethargic, but able to respond when called, not in acute respiratory distress. anicteric sclerae, EOM intact, PERRLA, No facial asymmetry,Mouth dry, no oral lesions noted. Neck supple, no nuchal rigidity noted, no stridor, no tenderness, no LAD Chest: equal chest expansions, no rales or wheezing noted, anteriorly CVS: s1 and s2 distinct, irregular, rate normal, no murmurs noted Abdomen: obese, no tenderness noted, positive bowel sounds, no rigidity, Groin: erythema on the right groin, Right breast erythema, weeping, some discharges. Extremities: bilateral leg edema, chronic thickened skin, not warm to touch, no tenderness ILLUSTRATOR SET: lethargic, follows some commands. very weak all over. Good hand shellacker. Psych: Not able to evaluate Laboratory Data Labs 24H Laboratory Tests 2 05/02/20 09:40: Urine Color (SELAM) YELLOW, Urine Appearance (SELAM) HAZYH, Urine pH (SELAM) 5.0, Urine Specific [place] (SELAM) 1.020, Bedside Urine Glucose (UA) NEGATIVE, Bedside Urine Ketones (LAB) NEGATIVE, Bedside Urine Blood POSITIVEH, Bedside Urine Nitrite (LAB) NEGATIVE, Bedside Urine Bilirubin (LAB) NEGATIVE, Bedside Urine Urobilinogen (LAB) NORMAL, Bedside Urine Leukocyte Esterase (L TRACEH, Urine RBC 0-1, Urine WBC 1-3, Urine Squamous Epithelial Cells SMALL AMOUNT, Urine Amorphous Sediment MOD AMOUNTH, Urine Hyaline Casts 3-5H 05/02/20 09:45: Immature Granulocyte % (Auto) 1.0, Neutrophils (%) (Auto) 88.0H, Lymphocytes (%) (Auto) 5.3L, Monocytes (%) (Auto) 5.4H, Eosinophils (%) (Auto) 0.1, Basophils (%) (Auto) 0.2, Neutrophils # (Auto) 14.6H, Lymphocytes # (Auto) 0.9L, Monocytes # (Auto) 0.9H, Eosinophils # (Auto) 0.0, Basophils # (Auto) 0.0, Nucleated Red Blood Cells % (auto) 0.2H, Immature Platelet Fraction 7.0, Blood Gas Bicarbonate Standard 22.9, Venous Blood pH 7.367, Venous Blood Partial Pressure CO2 41.6, Venous Blood Partial Pressure O2 140.3H, Venous Blood Total Carbon Dioxide 24.6, Venous Blood HCO3 23.3, Venous Blood Oxygen Saturation 99.0H, Venous Blood Base Excess -1.9, Anion Gap 7L, Glomerular Filtration Rate 19.6L, Osmolality 312H, Lactic Acid Level 6.4*H, Calcium Level 7.9L, Total Bilirubin 2.3H, Direct Bilirubin 0.8H, Aspartate Amino Transf (AST/SGOT) 177H, Alanine Aminotransferase (ALT/SGPT) 101H, Alkaline Phosphatase 210H, Ammonia 53H, Total Creatine Kinase 135, Creatine Kinase MB 16.0H, Creatine Kinase MB Relative Index 11.85H, Troponin I 0.10, Total Protein 4.9L, Albumin 1.5L, Albumin/Globulin Ratio 0.4L, Thyroid Stimulating Hormone (TSH) 4.470H, Digoxin Level 1.9 05/02/20 10:42: Blood Gas Bicarbonate Standard 22.2, Venous Blood pH 7.510H, Venous Blood Partial Pressure CO2 42.0, Venous Blood Partial Pressure O2 97.8H, Venous Blood Total Carbon Dioxide 24.0, Venous Blood HCO3 22.7L, Venous Blood Oxygen Saturation 97.2H, Venous Blood Base Excess -2.8L 05/02/20 11:56: Prothrombin Time 47.0H, Prothromb Time International Ratio 4.92, Activated Partial Thromboplast Time 60.6H CBC/BMP Laboratory Tests 05/02/20 09:45 Microbiology Microbiology 05/02/20 Blood Culture, Received Pending 05/02/20 Urine Culture, Received Pending 05/02/20 Blood Culture, Received Pending Assessment/Plan ASSESSMENT: 1. Septic shock 2. Acute kidney injury 3. Hyperkalemia 4. Atrial fibrillation, with non sustained v tach, 5. chronic anticoagulation with xarelto 6. Severe lactic acidosis 7. Diabetes Mellitus type II, with hyperglycemia 8. elevated LFTs, with hyperbilirubinemia 9. Candidiasis with superimposed cellulitis, PLANS: * Admit to ICU. * Started on Dopamine in ED. Received Sepsis bolus. Rocephin 2 gram in ED. * Change to levophed. * Change to Zosyn. * Normal saline, continue. * Right femoral line * Mcpherson catheter - but no output yet. * Patient received initial treatment for hyperkalemia, repeat potassium now. * ABG noted. ph noted. * CT chest and abdomen still pending. * I have reviewed patient's meds : d/c metformin and torsemide. d/c nephrotoxic medications. * Discussed with ICU, Dr. Toscano, for ICU admission. * check cortisol level, cortisol. * urinalysis checked no UTI noted. * Acutely ill * Critical care time 60 minutes - obtaining history, reviewing labs. * FULL CODE Plan / VTE VTE Prophylaxis Ordered?: Yes CARLOS ALMARAZ MD May 02, 2020 13:54
[2020-05-02] MEDS ORDERED: DEXTROSE 50% 50 ML SYRINGE IV PRN (14:00)
[2020-05-02] MEDS ORDERED: LINEZOLID 600 MG in IV 1 EA IV SCH (14:00)
[2020-05-02] MEDS ORDERED: GLUCAGON INJ 1MG VIAL SC PRN (14:00)
[2020-05-02] MEDS ORDERED: GLUCOSE 4GM CHEW TABLET PO PRN (14:00)
[2020-05-02] MEDS ORDERED: MIDAZOLAM INJ 2MG/2ML VIAL (J2250 PER 1MG) As Ordered ONE (14:04)
[2020-05-02] MEDS ORDERED: PROPOFOL 1,000 MG/100 ML VIAL As Ordered ONE (14:11)
[2020-05-02] MEDS ORDERED: PIPERACILLIN/TAZOBACTAM SOD 3.375 GM in D5W MINI-BAG PLUS 50 ML IV SCH (15:00)
[2020-05-02] MEDS ORDERED: fentaNYL 100 MCG/2 ML INJECTION (J3010) IV PRN (15:15)
[2020-05-02 15:20] LABS: ABG BASE EXCESS -3.9 (-2.0-2.0); ABG HCO3 18.7 MEQ/L (22.0-26.0); ABG O2 SATURATION 99.7 % (95.0-99.0); ABG PARTIAL PRESSURE CO2 27.4 mmHg (35.0-45.0); ABG PARTIAL PRESSURE O2 242.8 mmHg (75.0-100.0); ABG TOTAL CO2 19.5 MEQ/L (23.0-31.0); ABG pH (ARTERIAL) 7.451 UNITS (7.350-7.450)
[2020-05-02 15:21] LABS: ABG STANDARD HCO3 21.3 MEQ/L (22.0-26.0)
--- NOTE | 2020-05-02 15:21 | REPVR ---
PROCEDURE INFORMATION: Exam: XR Chest, 1 View Exam date and time: 05/02/2020 11:17 AM Age: 79 years old Clinical indication: Device placement; Other: Central line; Additional info: Altered mental status TECHNIQUE: Imaging protocol: XR of the chest Views: 1 view. COMPARISON: CT Chest without contrast 05/02/2020 1:03 PM FINDINGS: Tubes, catheters and devices: Malpositioned endotracheal tube in a right lower lobe bronchus. Distal tip of left internal jugular central venous catheter is not well visualized. Lungs: Interstitial prominence and mild basilar airspace disease. Vascular: calcification of the thoracic aorta. Pleural space: No pneumothorax . Small pleural effusions. Heart/Mediastinum: No cardiomegaly. Bones/joints: Degenerative change. IMPRESSION: 1. Malpositioned endotracheal tube in a right lower lobe bronchus. 2. Additional findings as described above. The aforementioned findings initiated a critical results communication pathway. An addendum will be issued at the time of clincian notification. Electronically signed by: Josef Sepulveda On 05/02/2020 15:21:32 PM
[2020-05-02] MEDS: VASOPRESSIN INJ 20 UNITS in NS 499 ML IV SCH ×2 (15:37→23:26)
[2020-05-02 15:44] LABS: BASO % 0.2 % (0.0-1.0); EOS % 0.1 % (0.0-3.0); HEMATOCRIT 34.3 % (36.0-47.0); HEMOGLOBIN 12.1 g/dl (12.0-15.5); LYMPH # 1.1 10^3/uL (1.5-5.0); LYMPH % 6.5 % (24.0-44.0); MEAN CORPUSCULAR HEMOGLOBIN 35.9 pg (27.0-33.0); MEAN CORPUSCULAR HGB CONC 35.3 g/dl (32.0-36.5); MEAN CORPUSCULAR VOLUME 101.8 fl (80.0-96.0); MONO # 0.8 10^3/uL (0.0-0.8); MONO % 4.4 % (0.0-5.0); NEUTROPHILS # 14.9 10^3/uL (1.5-8.5); RED BLOOD COUNT 3.37 10^6/uL (4.00-5.40)
[2020-05-02 15:53] LABS: INR 3.62; PROTHROMBIN TIME 36.9 SECONDS (11.8-14.0)
[2020-05-02] MEDS ORDERED: propofoL 1,000 MG in IV 1 EA IV SCH (16:00)
[2020-05-02 16:23] LABS: PLATELET COUNT, AUTOMATED 75 10^3/uL (150-450)
[2020-05-02 16:59] LABS: ALBUMIN 1.4 GM/DL (3.2-5.2); CALCIUM LEVEL 9.3 MG/DL (8.8-10.2); CREATININE FOR GFR 2.53 MG/DL (0.55-1.30); GLOMERULAR FILTRATION RATE 19.5 (>32); MAGNESIUM LEVEL 1.5 MG/DL (1.8-2.4); POTASSIUM SERUM 5.1 MEQ/L (3.5-5.1); TOTAL PROTEIN 4.4 GM/DL (6.4-8.2); TROPONIN I 0.1 NG/ML (< 0.10)
[2020-05-02] MEDS ORDERED: MAG SULF 1GM/100ML (MAG RUN) 1 GM in IV 1 EA IV ONE (17:15)
[2020-05-02] MEDS: HumaLOG INSULIN (NovoLOG) PER UNIT SC SCH ×3 (17:34→23:34)
[2020-05-02] MEDS: NOREPINEPHRINE BITARTRATE 8 MG in D5W 492 ML IV SCH (17:41)
[2020-05-02] MEDS: PIPERACILLIN/TAZOBACTAM SOD 2.25 GM in D5W MINI-BAG PLUS 50 ML IV SCH ×2 (17:46→21:24)
[2020-05-02] MEDS: VANCOMYCIN HCL 1,000 MG, VIAL MATE ADAPTER 1 EACH in D5W 250 ML IV SCH ×2 (18:13→19:14)
[2020-05-02 19:07] LABS: ABG BASE EXCESS -1.5 (-2.0-2.0); ABG HCO3 19.2 MEQ/L (22.0-26.0); ABG O2 SATURATION 99.4 % (95.0-99.0); ABG PARTIAL PRESSURE O2 146.8 mmHg (75.0-100.0); ABG STANDARD HCO3 23.2 MEQ/L (22.0-26.0); ABG TOTAL CO2 19.9 MEQ/L (23.0-31.0)
[2020-05-02] MEDS ORDERED: MIDAZOLAM HCL 50 MG in D5W 40 ML IV SCH (20:30)
[2020-05-02] MEDS: CHLORHEXIDINE GLUCONATE 0.12 % 15ML UDC (PERIDEX ORAL RINSE) MT SCH (21:02)
[2020-05-02] MEDS: NYSTATIN 100,000 UNITS/GM TOPICAL PWD 15 GM TOP SCH (21:02)
[2020-05-02] MEDS ORDERED: VASOPRESSIN INJ 20 UNITS/ML VIAL As Ordered ONE (23:18)
[2020-05-03] VITALS (99 sets, daily range): BP systolic 55–137; BP diastolic 29–63; O2SAT 97
[2020-05-03] MEDS ORDERED: NS 500 ML IV ONE ×3 (00:15→01:15)
[2020-05-03] MEDS ORDERED: NOREPINEPHRINE 4 MG/4 ML AMP As Ordered ONE (00:56)
[2020-05-03] MEDS: NOREPINEPHRINE BITARTRATE 8 MG in D5W 492 ML IV SCH ×5 (01:07→22:04)
[2020-05-03] MEDS: PIPERACILLIN/TAZOBACTAM SOD 2.25 GM in D5W MINI-BAG PLUS 50 ML IV SCH ×4 (03:44→21:43)
[2020-05-03 04:57] LABS: INR 2.6; PROTHROMBIN TIME 28.4 SECONDS (11.8-14.0)
[2020-05-03] MEDS ORDERED: VANCOMYCIN HCL 750 MG, VIAL MATE ADAPTER 1 EACH in D5W 250 ML IV SCH (05:00)
[2020-05-03] MEDS: HumaLOG INSULIN (NovoLOG) PER UNIT SC SCH ×3 (05:18→17:56)
[2020-05-03 05:22] LABS: ALBUMIN 1.4 GM/DL (3.2-5.2); ALT/SGPT 91 U/L (12-78); BILIRUBIN,TOTAL 2.4 MG/DL (0.2-1.0); BLOOD UREA NITROGEN 95 MG/DL (7-18); CALCIUM LEVEL 8.1 MG/DL (8.8-10.2); CARBON DIOXIDE LEVEL 23 MEQ/L (21-32); CHLORIDE LEVEL 99 MEQ/L (98-107); CHOLESTEROL LEVEL 130 MG/DL (< 200); CPK CREATINE PHOSPHOKINASE 50 U/L (26-192); CREATININE FOR GFR 2.73 MG/DL (0.55-1.30); GLOMERULAR FILTRATION RATE 17.8 (>32); GLUCOSE, FASTING 268 MG/DL (70-100); LDH LACTATE DEHYDROGENASE 379 U/L (84-246); MAGNESIUM LEVEL 1.6 MG/DL (1.8-2.4); POTASSIUM SERUM 5.6 MEQ/L (3.5-5.1); SODIUM LEVEL 129 MEQ/L (136-145); TOTAL PROTEIN 4.7 GM/DL (6.4-8.2); TRIGLYCERIDES LEVEL 76 MG/DL (<150)
[2020-05-03 05:49] LABS: ABG BASE EXCESS -2.2 (-2.0-2.0); ABG HCO3 18.8 MEQ/L (22.0-26.0); ABG O2 SATURATION 99.5 % (95.0-99.0); ABG PARTIAL PRESSURE CO2 23.5 mmHg (35.0-45.0); ABG PARTIAL PRESSURE O2 160.3 mmHg (75.0-100.0); ABG STANDARD HCO3 22.7 MEQ/L (22.0-26.0); ABG TOTAL CO2 19.6 MEQ/L (23.0-31.0); ABG pH (ARTERIAL) 7.522 UNITS (7.350-7.450)
[2020-05-03 05:49] LABS: BASO # 0.1 10^3/uL (0.0-0.2); BASO % 0.3 % (0.0-1.0); EOS # 0.1 10^3/uL (0.0-0.5); EOS % 0.6 % (0.0-3.0); HEMATOCRIT 34.1 % (36.0-47.0); HEMOGLOBIN 12.7 g/dl (12.0-15.5); LYMPH # 2.3 10^3/uL (1.5-5.0); LYMPH % 13.1 % (24.0-44.0); MEAN CORPUSCULAR HEMOGLOBIN 36.1 pg (27.0-33.0); MEAN CORPUSCULAR HGB CONC 37.2 g/dl (32.0-36.5); MEAN CORPUSCULAR VOLUME 96.9 fl (80.0-96.0); MONO # 1.6 10^3/uL (0.0-0.8); MONO % 9.2 % (0.0-5.0); NEUTROPHILS # 13.4 10^3/uL (1.5-8.5); NEUTROPHILS % 75.3 % (36.0-66.0); RED BLOOD COUNT 3.52 10^6/uL (4.00-5.40); WHITE BLOOD COUNT 17.8 10^3/uL (4.0-10.0)
[2020-05-03 05:50] LABS: PLATELET COUNT, AUTOMATED 66 10^3/uL (150-450)
[2020-05-03] MEDS: MAG SULF 1GM/100ML (MAG RUN) 1 GM in IV 1 EA IV SCH ×2 (05:57→07:03)
[2020-05-03] MEDS ORDERED: VANCOMYCIN HCL 500 MG in D5W MINI-BAG PLUS 100 ML IV SCH (06:00)
[2020-05-03] MEDS: VASOPRESSIN INJ 20 UNITS in NS 499 ML IV SCH ×3 (06:29→21:43)
[2020-05-03] MEDS ORDERED: MAG SULF 1GM/100ML (MAG RUN) 1 GM in IV 1 EA IV ONE (07:45)
[2020-05-03] MEDS: NYSTATIN 100,000 UNITS/GM TOPICAL PWD 15 GM TOP SCH ×2 (08:22→20:22)
[2020-05-03] MEDS: PANTOPRAZOLE 40MG VIAL (C9113 PER 1) IV SCH (08:22)
[2020-05-03] MEDS: CHLORHEXIDINE GLUCONATE 0.12 % 15ML UDC (PERIDEX ORAL RINSE) MT SCH ×2 (08:22→20:21)
--- NOTE | 2020-05-03 09:33 | IPNPDOC ---
Subjective Date Seen The patient was seen on 05/03/20. Subjective Chief Complaint/HPI patient intubated late yesterday. patient has been unresponsive, worsened. added vasopressin. BP still low despite levophed. remained unresponsive today Objective Physical Examination Other physical findings unresponsive off sedation anicteric sclerae, possible gaze palsy to the right inferior lateral, left eye, PERRLA, No facial asymmetry, intubated, off sedation Neck supple, no nuchal rigidity noted, no stridor, no tenderness, no LAD Chest: equal chest expansions, no rales or wheezing noted, anteriorly CVS: s1 and s2 distinct, irregular, rate normal, no murmurs noted Abdomen: obese, no tenderness noted, positive bowel sounds, no rigidity, Skin erythema on the right groin, Right breast erythema, weeping, some discharges. -- much improved Extremities: bilateral leg edema, chronic thickened skin, not warm to touch, no tenderness ACCOUNTS RECEIVABLE REPRESENTATIVE: unresponsive Psych: Not able to evaluate Assessment /Plan Assessment ASSESSMENT: 1. Septic shock on levophed and vasopressin 2. Acute kidney injury 3. Hyperkalemia, improved 4. Atrial fibrillation, with non sustained v tach, 5. chronic anticoagulation with xarelto 6. Severe lactic acidosis 7. Diabetes Mellitus type II, with hyperglycemia 8. elevated LFTs, with hyperbilirubinemia 9. Candidiasis with superimposed cellulitis, 10. Frequent non sustained ventricular tachycardia likely due to dopamine, much improved 11 Acute pancreatitis, in CT 12. Elevated TSH PLANS: * ICU course reviewed. Patient was intubated due to frequent v tach, u nresponsiveness, airway protection. * Notified that patient was off versed as she was not responsive. Today, she has no response to voice, or pain, despite off sedation. * Noted gaze palsy on exam. we may have to repeat CT head. Initial CT did not show any stroke. * CT chest and abdomen reviewed. Acute pancreatits: lipase is normal. * remained to have severe lactic acidosis. And renal failure. * Will consult nephrology. * check free t4. Still hypothermic. ?IV levothyroxine, discussed with Dr. Brian greene,ICU. * Currently intubated. * Will update patient's husbadn. * Prognosis: extremely guarded * critically ill * High risk for decompensation, ,etc. * Vasopressors: Vasopressin, levophed * Sedation: Off * GI: PPI * DVT: heparin. * Antibiotics: vanc and zosyn Plan/VTE VTE Prophylaxis Ordered?: Yes VS, I&O, 24H, Fishbone Vital Signs/I&O Vital Signs Date Time Temp Pulse Resp B/P (MAP) Pulse Ox O2 Delivery O2 Flow Rate FiO2 05/03/20 09:00 95.2 52 20 101/49 (66) 99 Ventilator 30 I&O- Last 24 Hours up to 6 AM 05/03/20 06:00 Intake Total 8341.00 ml Output Total 142 ml Balance 8199.00 ml Laboratory Data 24H LABS Laboratory Tests 2 05/02/20 09:40: Urine Color (SELAM) YELLOW, Urine Appearance (SELAM) HAZYH, Urine pH (SELAM) 5.0, Urine Specific [place] (SELAM) 1.020, Bedside Urine Glucose (UA) NEGATIVE, Bedside Urine Ketones (LAB) NEGATIVE, Bedside Urine Blood POSITIVEH, Bedside Urine Nitrite (LAB) NEGATIVE, Bedside Urine Bilirubin (LAB) NEGATIVE, Bedside Urine Urobilinogen (LAB) NORMAL, Bedside Urine Leukocyte Esterase (L TRACEH, Urine Sediment Examination PERFORMED, Urine RBC 0-1, Urine WBC 1-3, Urine Squamous Epithelial Cells SMALL AMOUNT, Urine Amorphous Sediment MOD AMOUNTH, Urine Bacteria NONE SEEN, Urine Hyaline Casts 3-5H 05/02/20 09:45: Immature Granulocyte % (Auto) 1.0, Neutrophils (%) (Auto) 88.0H, Lymphocytes (%) (Auto) 5.3L, Monocytes (%) (Auto) 5.4H, Eosinophils (%) (Auto) 0.1, Basophils (%) (Auto) 0.2, Neutrophils # (Auto) 14.6H, Lymphocytes # (Auto) 0.9L, Monocytes # (Auto) 0.9H, Eosinophils # (Auto) 0.0, Basophils # (Auto) 0.0, Nucleated Red Blood Cells % (auto) 0.2H, Immature Platelet Fraction 7.0, Blood Gas Bicarbonate Standard 22.9, Venous Blood pH 7.367, Venous Blood Partial Pressure CO2 41.6, Venous Blood Partial Pressure O2 140.3H, Venous Blood Total Carbon Dioxide 24.6, Venous Blood HCO3 23.3, Venous Blood Oxygen Saturation 99.0H, Venous Blood Base Excess -1.9, Anion Gap 7L, Glomerular Filtration Rate 19.6L, Osmolality 312H, Lactic Acid Level 6.4*H, Calcium Level 7.9L, Total Bilirubin 2.3H, Direct Bilirubin 0.8H, Aspartate Amino Transf (AST/SGOT) 177H, Alanine Aminotransferase (ALT/SGPT) 101H, Alkaline Phosphatase 210H, Ammonia 53H, Total Creatine Kinase 135, Creatine Kinase MB 16.0H, Creatine Kinase MB Relative Index 11.85H, Troponin I 0.10, Total Protein 4.9L, Albumin 1.5L, Albumin/Globulin Ratio 0.4L, Thyroid Stimulating Hormone (TSH) 4.470H, Digoxin Level 1.9 05/02/20 10:42: Blood Gas Bicarbonate Standard 22.2, Venous Blood pH 7.510H, Venous Blood Partial Pressure CO2 42.0, Venous Blood Partial Pressure O2 97.8H, Venous Blood Total Carbon Dioxide 24.0, Venous Blood HCO3 22.7L, Venous Blood Oxygen Satur ation 97.2H, Venous Blood Base Excess -2.8L 05/02/20 11:56: Prothrombin Time 47.0H, Prothromb Time International Ratio 4.92, Activated Partial Thromboplast Time 60.6H 05/02/20 14:37: Blood Gas Bicarbonate Standard 21.3L, Arterial Blood pH 7.451H, Arterial Blood Partial Pressure CO2 27.4L, Arterial Blood Partial Pressure O2 242.8H, Arterial Blood Total CO2 19.5L, Arterial Blood HCO3 18.7L, Arterial Blood Base Excess - 3.9L, Arterial Blood Oxygen Saturation 99.7H 05/02/20 14:55: Immature Granulocyte % (Auto) 0.8, Neutrophils (%) (Auto) 88.0H, Lymphocytes (%) (Auto) 6.5L, Monocytes (%) (Auto) 4.4, Eosinophils (%) (Auto) 0.1, Basophils (%) (Auto) 0.2, Neutrophils # (Auto) 14.9H, Lymphocytes # (Auto) 1.1L, Monocytes # (Auto) 0.8, Eosinophils # (Auto) 0.0, Basophils # (Auto) 0.0, Nucleated Red Blood Cells % (auto) 0.1H, Prothrombin Time 36.9H, Prothromb Time International Ratio 3.62, Fibrinogen 189L, Anion Gap 8, Glomerular Filtration Rate 19.5L, Lactic Acid Level 6.5*H, Calcium Level 9.3#, Magnesium Level 1.5L, Total Bilirubin 2.0H, Aspartate Amino Transf (AST/SGOT) 143H, Alanine Aminotransferase (ALT/SGPT) 93H, Alkaline Phosphatase 193H, Troponin I 0.10, Total Protein 4.4L, Albumin 1.4L, Albumin/Globulin Ratio 0.5L, Amylase Level 75, Lipase 276 05/02/20 18:45: Blood Gas Bicarbonate Standard 23.2, Arterial Blood pH 7.540H, Arterial Blood Partial Pressure CO2 23.0L, Arterial Blood Partial Pressure O2 146.8H, Arterial Blood Total CO2 19.9L, Arterial Blood HCO3 19.2L, Arterial Blood Base Excess -1.5, Arterial Blood Oxygen Saturation 99.4H 05/03/20 04:30: Immature Granulocyte % (Auto) 1.5, Neutrophils (%) (Auto) 75.3H, Lymphocytes (%) (Auto) 13.1L, Monocytes (%) (Auto) 9.2H, Eosinophils (%) (Auto) 0.6, Basophils (%) (Auto) 0.3, Neutrophils # (Auto) 13.4H, Lymphocytes # (Auto) 2.3, Monocytes # (Auto) 1.6H, Eosinophils # (Auto) 0.1, Basophils # (Auto) 0.1, Nucleated Red Blood Cells % (auto) 0.4H, Prothrombin Time 28.4H, Prothromb Time International Ratio 2.60, Anion Gap 7L, Glomerular Filtration Rate 17.8L, Lactic Acid Level 5.3*H, Calcium Level 8.1L, Magnesium Level 1.6L, Total Bilirubin 2.4H, Aspartate Amino Transf (AST/SGOT) 139H, Alanine Aminotransferase (ALT/SGPT) 91H, Alkaline Phosphatase 195H, Total Protein 4.7L, Albumin 1.4L, Albumin/Globulin Ratio 0.4L, Phosphorus Level 3.0, Lactate Dehydrogenase 379H, Total Creatine Kinase 50, Triglycerides Level 76, Cholesterol Level 130 05/03/20 05:40: Blood Gas Bicarbonate Standard 22.7, Arterial Blood pH 7.522H, Arterial Blood Partial Pressure CO2 23.5L, Arterial Blood Partial Pressure O2 160.3H, Arterial Blood Total CO2 19.6L, Arterial Blood HCO3 18.8L, Arterial Blood Base Excess - 2.2L, Arterial Blood Oxygen Saturation 99.5H CBC/BMP Laboratory Tests 8/20/20 09:45 05/02/20 14:55 05/03/20 04:30 Microbiology Microbiology 05/02/20 Blood Culture, Received Pending 05/02/20 Urine Culture, Received Pending 05/02/20 Blood Culture, Received Pending TECARLOS MD May 03, 2020 09:31
[2020-05-03] MEDS ORDERED: ROCURONIUM BROMIDE 50 MG/5 ML VIAL ONE (10:01)
[2020-05-03] MEDS ORDERED: ETOMIDATE INJ 20MG/10ML VIAL ONE (10:01)
[2020-05-03] MEDS ORDERED: CALCIUM CHLORIDE 10% 1 GM/10 ML SYR ONE (10:03)
[2020-05-03] MEDS ORDERED: GLUCAGON INJ 1MG VIAL IV STA ×2 (10:45→14:11)
[2020-05-03] MEDS: HYDROCORTISONE 100 MG/2 ML VIAL (J1720 PER 1) IV SCH ×2 (11:59→20:21)
[2020-05-03 12:15] LABS: HEPATITIS B SURFACE ANTIGEN NEGATIVE (NEGATIVE)
[2020-05-03 12:43] LABS: HEPATITIS A ANTIBODY IGM NEGATIVE (NEGATIVE); HEPATITIS B CORE ANTIBODY IGM NEGATIVE (NEGATIVE); HEPATITIS C VIRUS ABY INDEX 0.2 INDEX (<0.8)
[2020-05-03 12:47] LABS: CHLORIDE,RANDOM URINE < 10 MEQ/L; SODIUM,RANDOM URINE < 10 MEQ/L
[2020-05-03 13:32] LABS: FREE T4 1.13 NG/DL (0.76-1.46)
[2020-05-03 14:08] LABS: CORTISOL BASELINE 44.9 UG/DL (4.3-22.4)
[2020-05-03] MEDS ORDERED: NS 1,000 ML IV SCH ×2 (16:15→20:00)
[2020-05-03] MEDS: NS 1,000 ML IV SCH (22:57)
[2020-05-04] VITALS (65 sets, daily range): BP systolic 83–112; BP diastolic 44–57
[2020-05-04] MEDS: HumaLOG INSULIN (NovoLOG) PER UNIT SC SCH ×5 (00:40→23:54)
[2020-05-04] MEDS: HYDROCORTISONE 100 MG/2 ML VIAL (J1720 PER 1) IV SCH ×3 (04:14→20:19)
[2020-05-04] MEDS: PIPERACILLIN/TAZOBACTAM SOD 2.25 GM in D5W MINI-BAG PLUS 50 ML IV SCH ×4 (04:14→21:50)
[2020-05-04 04:25] LABS: INR 2.3; PROTHROMBIN TIME 25.8 SECONDS (11.8-14.0)
[2020-05-04 04:39] LABS: BASO % 0.2 % (0.0-1.0); EOS % 0.1 % (0.0-3.0); HEMATOCRIT 24.4 % (36.0-47.0); LYMPH # 1.2 10^3/uL (1.5-5.0); LYMPH % 9.9 % (24.0-44.0); MEAN CORPUSCULAR HEMOGLOBIN 36.4 pg (27.0-33.0); MEAN CORPUSCULAR VOLUME 96.4 fl (80.0-96.0); MONO # 0.9 10^3/uL (0.0-0.8); MONO % 7.2 % (0.0-5.0); NEUTROPHILS # 9.9 10^3/uL (1.5-8.5); NEUTROPHILS % 81.2 % (36.0-66.0); PLATELET COUNT, AUTOMATED 35 10^3/uL (150-450); RED BLOOD COUNT 2.53 10^6/uL (4.00-5.40); WHITE BLOOD COUNT 12.2 10^3/uL (4.0-10.0)
[2020-05-04 04:40] LABS: HEMOGLOBIN 9.2 g/dl (12.0-15.5); MEAN CORPUSCULAR HGB CONC 37.7 g/dl (32.0-36.5)
[2020-05-04 04:42] LABS: ALBUMIN 1.8 GM/DL (3.2-5.2); BILIRUBIN,TOTAL 2.8 MG/DL (0.2-1.0); CALCIUM LEVEL 7.6 MG/DL (8.8-10.2); CREATININE FOR GFR 2.65 MG/DL (0.55-1.30); GLOMERULAR FILTRATION RATE 18.4 (>32); PHOSPHORUS LEVEL 3.1 MG/DL (2.5-4.9); POTASSIUM SERUM 4.9 MEQ/L (3.5-5.1); TOTAL PROTEIN 4.1 GM/DL (6.4-8.2)
[2020-05-04] MEDS: NS 1,000 ML IV SCH ×4 (04:52→23:54)
[2020-05-04] MEDS: VASOPRESSIN INJ 20 UNITS in NS 499 ML IV SCH (05:09)
[2020-05-04 06:14] LABS: ABG BASE EXCESS -5.8 (-2.0-2.0); ABG HCO3 16.1 MEQ/L (22.0-26.0); ABG O2 SATURATION 96.7 % (95.0-99.0); ABG PARTIAL PRESSURE CO2 21.4 mmHg (35.0-45.0); ABG PARTIAL PRESSURE O2 85.4 mmHg (75.0-100.0); ABG STANDARD HCO3 19.7 MEQ/L (22.0-26.0); ABG TOTAL CO2 16.7 MEQ/L (23.0-31.0); ABG pH (ARTERIAL) 7.494 UNITS (7.350-7.450)
[2020-05-04 08:30] LABS: VANCOMYCIN LEVEL TROUGH 27.3 UG/ML (10.0-20.0)
[2020-05-04] MEDS: CHLORHEXIDINE GLUCONATE 0.12 % 15ML UDC (PERIDEX ORAL RINSE) MT SCH ×2 (09:07→20:19)
[2020-05-04] MEDS: PANTOPRAZOLE 40MG VIAL (C9113 PER 1) IV SCH (09:07)
[2020-05-04] MEDS: NYSTATIN 100,000 UNITS/GM TOPICAL PWD 15 GM TOP SCH ×2 (09:07→20:20)
[2020-05-04 11:05] LABS: MAGNESIUM LEVEL 1.9 MG/DL (1.8-2.4)
[2020-05-04 13:58] LABS: HEMATOCRIT 23.1 % (36.0-47.0); HEMOGLOBIN 8.7 g/dl (12.0-15.5)
--- NOTE | 2020-05-04 14:28 | IPNPDOC ---
Text Note Date of Service The patient was seen on 05/04/20. NOTE Seen this morning. nurse also at bedside and updated me of events. seen this morning. Patient is currently on levophed, off vasopressin. Still somewhat hypothermic but improved. not responsive. Vital Sign - Last 24 Hours 05/03/20 05/03/20 05/03/20 05/03/20 14:30 14:35 14:45 15:00 Temp 95.5 95.5 95.7 95.7 Pulse 59 58 57 53 Resp 20 B/P (MAP) 105/50 (68) 105/50 101/49 (66) 103/48 (66) Pulse Ox 98 98 98 98 O2 Delivery Ventilator Ventilator Ventilator Ventilator FiO2 30 30 30 30 05/03/20 05/03/20 05/03/20 05/03/20 15:05 15:30 16:00 16:00 Temp 95.7 95.9 Pulse 57 57 55 Resp 20 B/P (MAP) 114/53 (73) 116/56 (76) Pulse Ox 98 98 98 O2 Delivery Ventilator Ventilator FiO2 25 30 30 30 05/03/20 05/03/20 05/03/20 05/03/20 16:30 16:45 17:00 17:15 Temp 95.9 95.7 95.5 95.5 Pulse 56 57 58 60 Resp 20 B/P (MAP) 120/59 (79) 121/57 (78) 123/57 (79) 114/54 (74) Pulse Ox 98 98 98 98 O2 Delivery Ventilator Ventilator Ventilator Ventilator FiO2 30 30 30 30 05/03/20 05/03/20 05/03/20 05/03/20 17:30 17:45 18:00 19:00 Temp 95.5 95.5 95.5 95.7 Pulse 57 58 60 58 Resp 20 B/P (MAP) 122/60 (80) 128/63 (84) 122/63 (82) 116/57 (76) Pulse Ox 98 98 98 98 O2 Delivery Ventilator Ventilator Ventilator Ventilator FiO2 30 30 30 30 05/03/20 05/03/20 05/03/20 05/03/20 19:30 19:45 19:57 19:59 Pulse 66 Resp 20 B/P (MAP) 117/56 112/50 Pulse Ox 97 97 O2 Delivery Ventilator FiO2 25 25 20 05/03/20 05/03/20 05/03/20 20:00 20:00 20:00 21:00 Temp 95.9 95.9 Pulse 63 68 Resp 20 20 20 B/P (MAP) 90/44 (59) 104/52 (69) Pulse Ox 97 97 O2 Delivery Ventilator Ventilator FiO2 30 30 30 30 05/03/20 05/03/20 05/03/20 05/03/20 22:00 22:00 23:00 23:01 Temp 96.1 Pulse 66 76 Resp 20 20 20 B/P (MAP) 107/54 (71) 111/53 (72) 111/53 Pulse Ox 98 98 O2 Delivery Ventilator Ventilator FiO2 30 30 21 05/04/20 05/04/20 05/04/20 05/04/20 00:00 00:00 00:00 01:00 Temp 96.1 95.5 Pulse 72 77 Resp 20 20 20 B/P (MAP) 90/45 (60) 94/49 (64) Pulse Ox 96 96 O2 Delivery Ventilator Ventilator FiO2 21 21 30 21 05/04/20 05/04/20 05/04/20 05/04/20 02:00 02:00 03:00 03:32 Temp 95.7 95.5 Pulse 73 75 78 Resp 20 20 20 20 B/P (MAP) 94/47 (63) 88/45 (59) Pulse Ox 96 95 96 O2 Delivery Ventilator Ventilator FiO2 30 21 21 21 05/04/20 05/04/20 05/04/20 05/04/20 04:00 04:00 04:00 05:00 Temp 95.5 95.9 Pulse 74 73 Resp 20 20 20 B/P (MAP) 97/47 (64) 91/47 (62) Pulse Ox 93 96 O2 Delivery Ventilator Ventilator FiO2 21 21 30 21 05/04/20 05/04/20 05/04/20 05/04/20 06:00 06:00 07:00 07:15 Temp 95.9 Pulse 80 81 81 Resp 20 20 B/P (MAP) 96/47 (63) 90/46 (61) 96/48 (64) Pulse Ox 96 96 96 O2 Delivery Ventilator Ventilator Ventilator FiO2 21 30 21 21 8/22/20 8/22/20 8/22/20 8/22/20 07:30 07:45 08:00 08:00 Pulse 79 77 Resp 20 B/P (MAP) 84/44 (57) 91/49 (63) Pulse Ox 96 96 O2 Delivery Ventilator Ventilator FiO2 21 21 21 21 05/04/20 05/04/20 05/04/20 05/04/20 08:00 08:15 08:23 08:30 Temp 96.1 Pulse 78 81 92 83 Resp 20 20 B/P (MAP) 92/53 (66) 90/48 (62) 95/48 (64) Pulse Ox 97 97 97 97 O2 Delivery Ventilator Ventilator Ventilator FiO2 21 21 21 21 05/04/20 05/04/20 05/04/20 05/04/20 08:45 09:00 09:15 09:30 Pulse 84 80 87 88 B/P (MAP) 93/47 (62) 91/47 (62) 96/49 (65) 92/51 (65) Pulse Ox 97 97 96 96 O2 Delivery Ventilator Ventilator Ventilator Ventilator FiO2 21 21 21 05/04/20 05/04/20 05/04/20 05/04/20 09:45 10:00 10:00 10:15 Pulse 83 83 90 Resp 20 B/P (MAP) 93/48 (63) 94/49 (64) 91/52 (65) Pulse Ox 96 95 95 O2 Delivery Ventilator Ventilator Ventilator FiO2 21 21 21 05/04/20 05/04/20 05/04/20 05/04/20 10:30 10:45 11:00 11:15 Pulse 86 88 91 89 B/P (MAP) 92/52 (65) 96/49 (65) 91/50 (64) 92/51 (65) Pulse Ox 95 96 96 95 O2 Delivery Ventilator Ventilator Ventilator Ventilator FiO2 21 21 21 21 05/04/20 05/04/20 05/04/20 05/04/20 11:30 11:45 12:00 12:00 Pulse 90 84 Resp 20 B/P (MAP) 97/52 (67) 93/53 (66) Pulse Ox 96 96 O2 Delivery Ventilator Ventilator FiO2 21 21 21 21 05/04/20 12:00 Temp 95.5 Pulse 91 Resp 20 B/P (MAP) 95/52 (66) Pulse Ox 95 O2 Delivery Ventilator FiO2 21 unresponsive, intubated still, anicteric sclerae, no gaze palsy noted today, pupils reactive to light, no nystagmus noted, intubated, with ngt Neck supple, no nuchal rigidity noted, no stridor, no LAD Chest: equal chest expansions, no rales or wheezing noted, anteriorly CVS: irregular, rate normal, no murmurs noted Abdomen: obese, no tenderness noted, positive bowel sounds, no rigidity, Skin erythema on the right groin, Right breast erythema, weeping, some discharges. -- much improved Extremities: bilateral leg edema, chronic thickened skin, not warm to touch, no tenderness improved INSTRUMENT PERSON: unresponsive Psych: Not able to evaluate Laboratory Tests 05/02/20 14:55 05/03/20 04:30 05/04/20 04:00 05/04/20 13:35 elevated vanc troph Assessment /Plan Assessment ASSESSMENT: 1. Septic shock on Levophed and vasopressin 2. Acute kidney injury 3. Hyperkalemia, improved 4. Atrial fibrillation, with non sustained v tach, 5. chronic anticoagulation with xarelto 6. Severe lactic acidosis 7. Diabetes Mellitus type II, with hyperglycemia 8. elevated LFTs, with hyperbilirubinemia 9. Candidiasis with superimposed cellulitis, 10. Frequent non sustained ventricular tachycardia likely due to dopamine, much improved 11 Acute pancreatitis, in CT 12. Elevated TSH 13. Anemia, no acute blood loss, but trending down, ? occult gi bleeding 14. thrombocytopenia, could be due to sepsis, medications, PLANS: * Levophed, hydrocortisone in place. BP at bedisde when I was was mid90s. 96F on temp. She is responsive off sedation * Tube feeding has been started. * Note that there was a concern of possible hematemesis on admission, noted Hgb trending down. Off anticougulation due to thrombocytopenia and anemia. * PPI to continue. * transfuse <7. If continue to trend down, hold tube feeding. * daily cbc. high risk for spontaneous bleeding if platelet is low. * Antibiotics: Vanc on hold due to elevated vanc trough. Zosyn (can also cause thrombocytopenia). * ICU attending following. * High risk for decompensation * remains intubated. Once pressor, repeat CT head due to persistent unresponsive , may consider eeg as well. * Discussed with patient's and patient's son over the phone - patient is still critically ill, they are considering that if no improvement in next 24 - 48 hours, they would want to revisit discussion of possible dnr/dni/comfort measures. But for now, continue treatment per family's wishes. VS,Guybone, I+O VS, Guybone, I+O Laboratory Tests 05/04/20 04:00 05/04/20 13:35 Vital Signs Date Time Temp Pulse Resp B/P (MAP) Pulse Ox O2 Delivery O2 Flow Rate FiO2 05/04/20 12:00 95.5 91 20 95/52 (66) 95 Ventilator 21 I&O- Last 24 Hours up to 6 AM 05/04/20 05:59 Intake Total 5572.5 ml Output Total 523 ml Balance 5049.5 ml CARLOS ALMARAZ MD May 04, 2020 14:23
[2020-05-04 14:42] LABS: CALCIUM LEVEL 7.7 MG/DL (8.8-10.2); CREATININE FOR GFR 2.69 MG/DL (0.55-1.30); GLOMERULAR FILTRATION RATE 18.1 (>32); POTASSIUM SERUM 4.7 MEQ/L (3.5-5.1)
[2020-05-04 14:43] LABS: ALBUMIN 1.6 GM/DL (3.2-5.2)
[2020-05-04] MEDS: NOREPINEPHRINE BITARTRATE 8 MG in D5W 492 ML IV SCH (20:36)
[2020-05-05] VITALS (46 sets, daily range): BP systolic 81–146; BP diastolic 44–72
[2020-05-05] MEDS: PIPERACILLIN/TAZOBACTAM SOD 2.25 GM in D5W MINI-BAG PLUS 50 ML IV SCH ×4 (03:47→20:09)
[2020-05-05] MEDS: HYDROCORTISONE 100 MG/2 ML VIAL (J1720 PER 1) IV SCH ×3 (03:47→20:08)
[2020-05-05 04:05] LABS: BASO % 0.1 % (0.0-1.0); HEMATOCRIT 24.2 % (36.0-47.0); LYMPH % 6.6 % (24.0-44.0); MEAN CORPUSCULAR HEMOGLOBIN 36.7 pg (27.0-33.0); MEAN CORPUSCULAR HGB CONC 37.2 g/dl (32.0-36.5); MEAN CORPUSCULAR VOLUME 98.8 fl (80.0-96.0); MONO # 1.1 10^3/uL (0.0-0.8); NEUTROPHILS # 13.1 10^3/uL (1.5-8.5); NEUTROPHILS % 84.7 % (36.0-66.0); RED BLOOD COUNT 2.45 10^6/uL (4.00-5.40); WHITE BLOOD COUNT 15.5 10^3/uL (4.0-10.0)
[2020-05-05 04:06] LABS: PLATELET COUNT, AUTOMATED 39 10^3/uL (150-450)
[2020-05-05 04:13] LABS: INR 1.87; PROTHROMBIN TIME 21.9 SECONDS (11.8-14.0)
[2020-05-05 04:49] LABS: ALBUMIN 1.6 GM/DL (3.2-5.2); BILIRUBIN,TOTAL 2.8 MG/DL (0.2-1.0); CALCIUM LEVEL 7.5 MG/DL (8.8-10.2); CREATININE FOR GFR 2.7 MG/DL (0.55-1.30); GLOMERULAR FILTRATION RATE 18.1 (>32); MAGNESIUM LEVEL 1.9 MG/DL (1.8-2.4); PHOSPHORUS LEVEL 2.9 MG/DL (2.5-4.9); POTASSIUM SERUM 4.7 MEQ/L (3.5-5.1); TOTAL PROTEIN 3.9 GM/DL (6.4-8.2)
[2020-05-05] MEDS: HumaLOG INSULIN (NovoLOG) PER UNIT SC SCH ×3 (05:53→17:48)
[2020-05-05 06:08] LABS: ABG BASE EXCESS -5.2 (-2.0-2.0); ABG PARTIAL PRESSURE O2 94.1 mmHg (75.0-100.0); ABG TOTAL CO2 18.2 MEQ/L (23.0-31.0); ABG pH (ARTERIAL) 7.462 UNITS (7.350-7.450)
[2020-05-05 06:09] LABS: ABG O2 SATURATION 97.3 % (95.0-99.0)
[2020-05-05 06:10] LABS: ABG HCO3 17.5 MEQ/L (22.0-26.0); ABG STANDARD HCO3 20.2 MEQ/L (22.0-26.0)
[2020-05-05] MEDS ORDERED: VANCOMYCIN HCL 1,000 MG, VIAL MATE ADAPTER 1 EACH in D5W 250 ML IV SCH (08:00)
[2020-05-05] MEDS: NYSTATIN 100,000 UNITS/GM TOPICAL PWD 15 GM TOP SCH ×2 (09:23→20:08)
[2020-05-05] MEDS: CHLORHEXIDINE GLUCONATE 0.12 % 15ML UDC (PERIDEX ORAL RINSE) MT SCH ×2 (09:23→20:08)
[2020-05-05] MEDS: PANTOPRAZOLE 40MG VIAL (C9113 PER 1) IV SCH (09:23)
[2020-05-05] MEDS ORDERED: FUROSEMIDE 100MG/10ML VIAL (J1940) IV ONE (10:00)
--- NOTE | 2020-05-05 11:07 | IPNPDOC ---
Text Note Date of Service The patient was seen on 05/05/20. NOTE Patient seen bedside with ICU nurse. patient is off levophed. she has not been on sedation x 48 hours. She is awake, but not able to follow commands, opens eyes, spontaneously moves arms and legs. No gaze palsy noted. Still on ventilator. Vital Sign - Last 24 Hours 05/04/20 05/04/20 05/04/20 05/04/20 11:15 11:30 11:45 12:00 Pulse 89 90 84 Resp 20 B/P (MAP) 92/51 (65) 97/52 (67) 93/53 (66) Pulse Ox 95 96 96 O2 Delivery Ventilator Ventilator Ventilator FiO2 21 05/04/20 05/04/20 05/04/20 05/04/20 12:00 12:00 12:15 12:30 Temp 95.5 Pulse 91 91 91 Resp 20 B/P (MAP) 95/52 (66) 93/50 (64) 91/47 (62) Pulse Ox 95 95 95 O2 Delivery Ventilator Ventilator Ventilator FiO2 21 05/04/20 05/04/20 05/04/20 05/04/20 12:45 13:00 13:15 13:30 Pulse 89 87 82 90 B/P (MAP) 83/48 (60) 94/48 (63) 88/49 (62) 94/48 (63) Pulse Ox 95 95 95 96 O2 Delivery Ventilator Ventilator Ventilator Ventilator FiO2 21 21 05/04/20 05/04/20 05/04/20 05/04/20 13:45 14:00 14:00 14:15 Pulse 85 85 81 Resp 20 B/P (MAP) 89/46 (60) 91/47 (62) 89/47 (61) Pulse Ox 95 95 95 O2 Delivery Ventilator Ventilator Ventilator FiO2 21 21 05/04/20 05/04/20 05/04/20 05/04/20 14:30 14:45 15:00 15:15 Pulse 92 89 89 88 B/P (MAP) 91/50 (64) 96/48 (64) 92/48 (63) 92/50 (64) Pulse Ox 95 96 96 96 O2 Delivery Ventilator Ventilator FiO2 21 21 05/04/20 05/04/20 05/04/20 05/04/20 15:29 15:30 15:45 16:00 Pulse 90 90 95 Resp 20 B/P (MAP) 97/48 (64) 95/49 (64) Pulse Ox 96 95 95 FiO2 21 21 05/04/20 05/04/20 05/04/20 05/04/20 16:00 16:00 16:15 16:30 Pulse 89 92 91 Resp 20 B/P (MAP) 99/48 (65) 93/53 (66) 103/50 (67) Pulse Ox 96 96 95 FiO2 21 05/04/20 05/04/20 05/04/20 05/04/20 16:45 17:00 17:15 17:30 Pulse 92 91 91 97 B/P (MAP) 102/50 (67) 95/46 (62) 100/50 (67) 100/50 (67) Pulse Ox 95 94 95 95 05/04/20 05/04/20 05/04/20 05/04/20 17:45 18:00 18:00 19:00 Temp 97.5 Pulse 89 86 94 Resp 20 20 B/P (MAP) 104/49 (67) 92/47 (62) 98/48 (65) Pulse Ox 96 95 95 O2 Delivery Ventilator FiO2 21 05/04/20 05/04/20 05/04/20 05/04/20 19:15 19:30 19:45 19:53 Pulse 85 94 92 93 Resp 20 20 20 20 B/P (MAP) 91/46 (61) 93/46 (62) 89/49 (62) Pulse Ox 94 95 94 95 O2 Delivery Ventilator Ventilator Ventilator FiO2 21 05/04/20 05/04/20 05/04/20 05/04/20 20:00 20:00 20:00 20:15 Temp 97.2 Pulse 88 88 Resp 20 20 20 B/P (MAP) 89/45 (60) 95/46 (62) Pulse Ox 94 95 O2 Delivery Ventilator Ventilator FiO2 21 21 05/04/20 05/04/20 05/04/20 05/04/20 20:30 21:00 21:30 22:00 Temp 96.8 Pulse 94 91 88 90 Resp 20 20 20 B/P (MAP) 112/57 (75) 94/48 (63) 103/53 (70) 94/47 (63) Pulse Ox 96 95 96 95 O2 Delivery Ventilator Ventilator Ventilator Ventilator FiO2 21 8/22/05/04/20 05/04/20 05/04/20 22:00 22:30 23:00 23:30 Temp 96.4 96.0 95.9 Pulse 87 83 84 Resp 20 B/P (MAP) 85/54 (64) 90/49 (63) 90/49 (63) Pulse Ox 94 94 94 O2 Delivery Ventilator Ventilator Ventilator FiO2 21 21 21 21 05/05/20 05/05/20 05/05/20 05/05/20 00:00 00:00 00:00 00:30 Temp 98.1 Pulse 93 96 Resp 20 20 20 B/P (MAP) 99/53 (68) 99/48 (65) Pulse Ox 93 93 O2 Delivery Ventilator Ventilator FiO2 21 21 21 21 05/05/20 05/05/20 05/05/20 05/05/20 01:00 01:30 02:00 02:00 Pulse 88 83 85 Resp 20 20 20 20 B/P (MAP) 92/44 (60) 88/44 (59) 91/45 (60) Pulse Ox 92 92 93 O2 Delivery Ventilator Ventilator Ventilator FiO2 21 21 21 21 05/05/20 05/05/20 05/05/20 05/05/20 02:30 02:30 03:00 03:30 Temp 98.6 Pulse 94 93 92 105 Resp 20 20 20 B/P (MAP) 99/51 (67) 95/50 (65) 92/49 (63) Pulse Ox 94 94 94 95 O2 Delivery Ventilator Ventilator Ventilator FiO2 21 21 21 21 05/05/20 05/05/2005/05/05/05/20 04:00 04:00 04:00 04:30 Temp 97.3 97.0 Pulse 100 105 Resp 20 20 20 B/P (MAP) 109/54 (72) 103/49 (67) Pulse Ox 95 95 O2 Delivery Ventilator Ventilator FiO2 21 21 21 21 05/05/05/05/ 8//05/05/20 05:00 05:30 06:00 07:00 Temp 97.0 97.0 97.0 Pulse 100 98 102 86 Resp 20 20 20 B/P (MAP) 106/53 (70) 99/49 (66) 112/55 (74) 91/50 (64) Pulse Ox 96 94 96 94 O2 Delivery Ventilator Ventilator Ventilator Ventilator FiO2 21 21 21 21 8/23/20 8/23/20 8/23/20 8/23/20 07:30 08:00 08:00 08:00 Temp 96.4 Pulse 103 110 Resp 20 20 B/P (MAP) 101/57 (72) 117/66 (83) Pulse Ox 95 95 O2 Delivery Ventilator Ventilator FiO2 21 05/05/20 05/05/20 08:26 08:30 Pulse 101 105 Resp 20 B/P (MAP) 110/56 (74) Pulse Ox 95 95 O2 Delivery Ventilator FiO2 General:awake, but not able to follow commands at present, off sedation Anicteric sclerae, no gaze palsy noted today, pupils reactive to light, no nystagmus noted, intubated, with ngt Neck supple, no nuchal rigidity noted, no stridor, no LAD Chest: equal chest expansions, no rales or wheezing noted, anteriorly CVS: irregular, rate normal, no murmurs noted tachycardic Abdomen: obese, no tenderness noted, positive bowel sounds, no rigidity, Skin erythema on the right groin, Right breast erythema, weeping, some discharges. -- much improved Extremities: bilateral leg edema, chronic thickened skin, not warm to touch, no tenderness improved DOUBLE END SEWER: awake, but not able to follow commands, opens eyes spontaneously, moves arms and legs spontaneously Psych: Not able to evaluate Laboratory Tests Laboratory Tests 05/04/20 13:35 05/05/20 03:54 Current Medications Medications (Trade) Dose Ordered Sig/Leah Route PRN Reason Start Time Stop Time Status Last Admin Dose Admin Albuterol Sulfate (Proventil Neb) 2.5 mg Q6HP PRN NEB SHORTNESS OF BREATH 05/02/20 13:30 Chlorhexidine Gluconate (Peridex Oral Rinse) SWAB/BRUSH ORAL CAVITY BID MT 05/02/20 21:00 05/05/20 09:23 Dextrose (Dextrose 50%) 25 ml ASDIRECTED PRN IV SEE LABEL COMMENTS 05/02/20 14:00 Fentanyl Citrate (Sublimaze) 25 mcg Q4HP PRN IV PAIN 05/02/20 15:15 Glucagon (Glucagon) 1 mg ASDIRECTED PRN SC SEE LABEL COMMENTS 05/02/20 14:00 Glucose (Glucose) 16 GM ASDIRECTED PRN PO SEE LABEL COMMENTS 05/02/20 14:00 Hydrocortisone (A-Hydrocort) 100 mg Q8H IV 05/03/20 12:00 05/05/20 03:47 Insulin Human Lispro (HumaLOG INSULIN) SEE PROTOCOL TABLE Q6H SC 05/02/20 12:00 05/05/20 05:53 Midazolam HCl (Versed) 2 mg Q15MP PRN IV AGITATION 05/02/20 15:15 Nystatin (Mycostatin Powder, Nystop) BILATERAL BREASTS & GROIN BID TOP 05/02/20 21:00 05/05/20 09:23 Pantoprazole Sodium (Protonix) 40 mg DAILY IV 05/03/20 09:00 05/05/20 09:23 Piperacillin Sod/ Tazobactam Sod 2.25 gm/Dextrose 50 ml @ 100 mls/hr Q6H IV 05/02/20 16:00 05/05/20 09:23 Sodium Chloride 1,000 ml @ 100 mls/hr Q10H IV 05/03/20 23:00 05/04/20 23:54 Assessment /Plan Assessment ASSESSMENT: 1. Septic shock, resolved 2. Acute kidney injury 3. Hyperkalemia, improved 4. Atrial fibrillation, with non sustained v tach, 5. chronic anticoagulation with xarelto 6. Severe lactic acidosis 7. Diabetes Mellitus type II, with hyperglycemia 8. elevated LFTs, with hyperbilirubinemia 9. Candidiasis with superimposed cellulitis, 10. Frequent non sustained ventricular tachycardia likely due to dopamine, much improved 11 Acute pancreatitis, in CT 12. Elevated TSH 13. Anemia, possible acute blood loss anemia, suspected gastritis, UGIB 14. thrombocytopenia, could be due to sepsis, medications, 15. Mild DIC PLANS * Off pressors. Currently still intubated. She is opening her eyes spontaneously but not able to follow commands. She is moving all her extremities. 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 * Will update patient's . She is off pressors, but her mental status is still not back at baseline. * Will discuss with patient's later. * Antibiotics: zosyn, off vanc due to high trough. * Labs reviewed * DVT: avoiding heparin due to thrombocytopenia * GI: PPI * SCD VS,Fishbone, I+O VS, Fishbone, I+O Laboratory Tests 05/04/20 13:35 05/05/20 03:54 Vital Signs Date Time Temp Pulse Resp B/P (MAP) Pulse Ox O2 Delivery O2 Flow Rate FiO2 05/05/20 08:30 105 110/56 (74) 95 Ventilator 21 05/05/20 08:26 20 05/05/20 08:00 96.4 I&O- Last 24 Hours up to 6 AM 05/05/20 06:00 Intake Total 3384.6 ml Output Total 720 ml Balance 2664.6 ml CARLOS ALMARAZ MD May 05, 2020 11:07
[2020-05-05 12:01] LABS: ABG PARTIAL PRESSURE CO2 23.7 mmHg (35.0-45.0); ABG pH (ARTERIAL) 7.425 UNITS (7.350-7.450)
[2020-05-05 12:02] LABS: ABG BASE EXCESS -7.7 (-2.0-2.0); ABG HCO3 15.2 MEQ/L (22.0-26.0); ABG O2 SATURATION 99.1 % (95.0-99.0); ABG PARTIAL PRESSURE O2 173.7 mmHg (75.0-100.0); ABG STANDARD HCO3 18.2 MEQ/L (22.0-26.0); ABG TOTAL CO2 15.9 MEQ/L (23.0-31.0)
[2020-05-05] MEDS: NS 1,000 ML IV SCH ×2 (12:41→23:13)
[2020-05-05 18:37] LABS: ALBUMIN 1.7 GM/DL (3.2-5.2); CALCIUM LEVEL 7.6 MG/DL (8.8-10.2); CREATININE FOR GFR 2.75 MG/DL (0.55-1.30); GLOMERULAR FILTRATION RATE 17.7 (>32); PHOSPHORUS LEVEL 2.9 MG/DL (2.5-4.9)
[2020-05-05] MEDS: MIDAZOLAM INJ 2MG/2ML VIAL (J2250 PER 1MG) IV PRN (21:35)
[2020-05-06] VITALS (55 sets, daily range): BP systolic 59–147; BP diastolic 30–75
[2020-05-06] MEDS: MIDAZOLAM INJ 2MG/2ML VIAL (J2250 PER 1MG) IV PRN ×3 (03:39→19:53)
[2020-05-06] MEDS: HYDROCORTISONE 100 MG/2 ML VIAL (J1720 PER 1) IV SCH ×3 (03:39→19:53)
[2020-05-06] MEDS: PIPERACILLIN/TAZOBACTAM SOD 2.25 GM in D5W MINI-BAG PLUS 50 ML IV SCH ×4 (03:39→22:54)
[2020-05-06 04:48] LABS: ALBUMIN 1.7 GM/DL (3.2-5.2); BILIRUBIN,TOTAL 2.7 MG/DL (0.2-1.0); CALCIUM LEVEL 7.5 MG/DL (8.8-10.2); CREATININE FOR GFR 2.66 MG/DL (0.55-1.30); GLOMERULAR FILTRATION RATE 18.4 (>32); MAGNESIUM LEVEL 1.9 MG/DL (1.8-2.4); PHOSPHORUS LEVEL 2.9 MG/DL (2.5-4.9); POTASSIUM SERUM 3.6 MEQ/L (3.5-5.1); TOTAL PROTEIN 4.5 GM/DL (6.4-8.2)
[2020-05-06 04:54] LABS: BASO # 0.1 10^3/uL (0.0-0.2); BASO % 0.3 % (0.0-1.0); EOS % 0.1 % (0.0-3.0); HEMATOCRIT 27.6 % (36.0-47.0); HEMOGLOBIN 10.2 g/dl (12.0-15.5); LYMPH # 0.9 10^3/uL (1.5-5.0); LYMPH % 5.2 % (24.0-44.0); MEAN CORPUSCULAR HEMOGLOBIN 37.2 pg (27.0-33.0); MEAN CORPUSCULAR VOLUME 100.7 fl (80.0-96.0); MONO # 1.1 10^3/uL (0.0-0.8); MONO % 6.2 % (0.0-5.0); NEUTROPHILS # 15.5 10^3/uL (1.5-8.5); NEUTROPHILS % 86.4 % (36.0-66.0); PLATELET COUNT, AUTOMATED 46 10^3/uL (150-450); RED BLOOD COUNT 2.74 10^6/uL (4.00-5.40)
[2020-05-06] MEDS: HumaLOG INSULIN (NovoLOG) PER UNIT SC SCH ×4 (05:29→18:16)
[2020-05-06 05:50] LABS: ABG HCO3 15.8 MEQ/L (22.0-26.0); ABG PARTIAL PRESSURE CO2 26.9 mmHg (35.0-45.0); ABG PARTIAL PRESSURE O2 111.1 mmHg (75.0-100.0); ABG TOTAL CO2 16.7 MEQ/L (23.0-31.0); ABG pH (ARTERIAL) 7.388 UNITS (7.350-7.450)
[2020-05-06 05:51] LABS: ABG BASE EXCESS -7.9 (-2.0-2.0); ABG O2 SATURATION 97.9 % (95.0-99.0); ABG STANDARD HCO3 18.1 MEQ/L (22.0-26.0)
[2020-05-06] MEDS: PANTOPRAZOLE 40MG VIAL (C9113 PER 1) IV SCH (08:34)
[2020-05-06] MEDS: CHLORHEXIDINE GLUCONATE 0.12 % 15ML UDC (PERIDEX ORAL RINSE) MT SCH ×2 (08:34→19:53)
[2020-05-06] MEDS: NYSTATIN 100,000 UNITS/GM TOPICAL PWD 15 GM TOP SCH ×2 (08:35→19:52)
[2020-05-06] MEDS: NS 1,000 ML IV SCH ×2 (10:15→22:07)
--- NOTE | 2020-05-06 10:31 | IPNPDOC ---
Text Note Date of Service The patient was seen on 05/06/20. NOTE Hospital course: 79 year old woman with known history of afib, on anticoagulation, lives at home, had been acting confused few days prior to admission, patient was not responsive at home and thus brought to hospital. Noted to be severely hypotensive, hypo thermic. Patient was septic. failed IV fluid response, thus started on dopamine, later changed to levophed and vasopressin. Dopamine stopped as patient had frequent NSVT. Patient was also in renal failure, with urine output. CT head no acute stroke noted. Unclear source of i nfection. NO pneumonia, noted induration on the left side chest, underneath breast and left groin - on vanc and zosyn. Vanc on hold due to elevated vanc trough. Ct abdomen showed acute pancreatitis, negative lipase. CT chest, no pneumonia Patient had not been on sedated x 3 days now, still lethargic, occasionally res pond and follows commands. Off pressors now x 24 hours. Noted gram negative bacilli x 1 set. Subjective: No events overnight. still intubated, lethargic still. Spontaneously moves extremities. currently tolerating feed Vital Sign - Last 24 Hours 05/05/20 05/05/20 05/05/20 05/05/20 10:30 11:00 11:30 12:00 Pulse 109 102 96 B/P (MAP) 115/62 (79) 81/49 (60) 94/53 (67) Pulse Ox 96 95 94 O2 Delivery Ventilator Ventilator Ventilator FiO2 21 21 21 05/05/20 05/05/20 05/05/20 05/05/20 12:00 12:01 12:30 13:00 Temp 95.2 Pulse 107 113 108 Resp 20 B/P (MAP) 99/72 (81) 114/67 (83) 117/62 (80) Pulse Ox 96 95 95 O2 Delivery Ventilator Ventilator Ventilator FiO2 21 21 21 21 05/05/20 05/05/20 05/05/20 05/05/20 13:31 14:00 14:00 14:03 Pulse 109 85 84 Resp 20 B/P (MAP) 95/58 (70) 82/45 (57) 85/52 (63) Pulse Ox 96 94 94 O2 Delivery Ventilator Ventilator Ventilator FiO2 21 21 21 05/05/20 05/05/20 05/05/20 05/05/20 14:30 15:00 15:30 16:00 Pulse 82 105 107 B/P (MAP) 92/50 (64) 109/64 (79) 107/69 (82) Pulse Ox 94 96 96 O2 Delivery Ventilator Ventilator Ventilator FiO2 21 21 21 21 20 05/05/20 05/05/20 05/05/20 16:00 16:00 16:30 17:00 Temp 96.6 Pulse 107 107 103 Resp 20 B/P (MAP) 113/62 (79) 109/58 (75) 100/60 (73) Pulse Ox 96 96 96 O2 Delivery Ventilator Ventilator Ventilator FiO2 21 21 21 21 05/05/20 05/05/20 05/05/20 05/05/20 17:55 18:00 18:01 19:27 Pulse 84 99 79 Resp 17 16 B/P (MAP) 104/68 (80) Pulse Ox 96 96 97 O2 Delivery Ventilator FiO2 21 21 21 21 05/05/20 05/05/20 05/05/20 05/05/20 20:00 20:00 20:00 20:31 Temp 96.3 Pulse 102 101 Resp 21 B/P (MAP) 141/63 (89) 118/64 (82) Pulse Ox 96 97 O2 Delivery Ventilator Ventilator FiO2 21 21 21 21 05/05/20 05/05/20 05/05/20 05/05/20 21:00 21:30 22:00 22:00 Pulse 104 96 81 B/P (MAP) 113/55 (74) 109/58 (75) 88/52 (64) Pulse Ox 96 97 96 O2 Delivery Ventilator Ventilator Ventilator FiO2 21 21 21 21 05/05/20 05/05/20 05/05/20 05/06/20 22:30 23:00 23:30 00:00 Pulse 78 79 82 B/P (MAP) 99/55 (70) 108/58 (75) 92/55 (67) Pulse Ox 95 95 95 O2 Delivery Ventilator Ventilator Ventilator FiO2 21 21 21 21 05/06/20 05/06/20 05/06/20 05/06/20 00:00 00:00 00:18 00:30 Temp 96.1 Pulse 79 84 92 Resp 16 17 B/P (MAP) 98/51 (67) 90/52 (65) Pulse Ox 96 96 97 O2 Delivery Ventilator Ventilator FiO2 21 21 21 21 05/06/20 05/06/20 05/06/20 05/06/20 01:00 01:30 02:00 02:00 Pulse 103 95 94 B/P (MAP) 101/63 (76) 112/60 (77) 112/56 (74) Pulse Ox 97 97 99 O2 Delivery Ventilator Ventilator Ventilator FiO2 21 21 21 05/06/20 05/06/20 05/06/20 05/06/20 02:30 03:00 03:30 04:00 Temp 96.2 Pulse 95 111 93 87 Resp 16 B/P (MAP) 119/57 (77) 132/57 (82) 111/59 (76) 92/48 (63) Pulse Ox 97 97 96 96 O2 Delivery Ventilator Ventilator Ventilator Ventilator FiO2 21 05/06/20 05/06/20 05/06/20 05/06/20 04:00 04:00 04:30 05:00 Pulse 76 85 B/P (MAP) 87/49 (62) 126/68 (87) Pulse Ox 98 97 O2 Delivery Ventilator Ventilator FiO2 21 21 21 05/06/20 05/06/20 05/06/20 05/06/20 05:30 06:00 06:00 07:00 Temp 97.5 Pulse 84 80 79 Resp 15 B/P (MAP) 102/61 (75) 112/60 (77) 107/70 (82) Pulse Ox 97 97 97 O2 Delivery Ventilator Ventilator Ventilator FiO2 21 21 21 05/06/20 05/06/20 05/06/20 07:07 08:00 08:00 Pulse 76 79 Resp 17 19 B/P (MAP) 114/58 (76) Pulse Ox 97 96 O2 Delivery Ventilator FiO2 21 21 21 General:lethargic , but not able to follow commands at present, off sedation Anicteric sclerae, no gaze palsy noted today, pupils reactive to light, no nystagmus noted, intubated, with ngt Neck supple, no nuchal rigidity noted, no stridor, no LAD Chest: equal chest expansions, no rales or wheezing noted, anteriorly CVS: irregular, rate normal, no murmurs noted tachycardic mid Abdomen: obese, no tenderness noted, positive bowel sounds, no rigidity, Skin erythema on the right groin, Right breast erythema, weeping, some discharges. -- much improved Extremities: bilateral leg edema, improved chronic thickened skin, not warm to touch, no tenderness improved CHUTE FEEDER: lethargic but not able to follow commands, opens eyes spontaneously, moves arms and legs spontaneously Psych: Not able to evaluate Laboratory Tests Laboratory Tests 05/04/20 13:35 05/05/20 03:54 05/05/20 17:51 05/06/20 03:50 Microbiology positive blood culture x 1 set on admission, gram negative bacilli Current Medications Medications (Trade) Dose Ordered Sig/Leah Route PRN Reason Start Time Stop Time Status Last Admin Dose Admin Albuterol Sulfate (Proventil Neb) 2.5 mg Q6HP PRN NEB SHORTNESS OF BREATH 05/02/20 13:30 Calcium Chloride (Calcium Chloride 10%) 1 gm STAT STAT IV 05/02/20 11:32 05/02/20 11:38 DC 05/02/20 12:53 Chlorhexidine Gluconate (Peridex Oral Rinse) SWAB/BRUSH ORAL CAVITY BID MT 05/02/20 21:00 05/06/20 08:34 Dextrose (Dextrose 50%) 25 ml ASDIRECTED PRN IV SEE LABEL COMMENTS 05/02/20 14:00 Fentanyl Citrate (Sublimaze) 25 mcg Q4HP PRN IV PAIN 05/02/20 15:15 Glucagon (Glucagon) 1 mg ASDIRECTED PRN SC SEE LABEL COMMENTS 05/02/20 14:00 Glucose (Glucose) 16 GM ASDIRECTED PRN PO SEE LABEL COMMENTS 05/02/20 14:00 Hydrocortisone (A-Hydrocort) 100 mg Q8H IV 05/03/20 12:00 05/06/20 03:39 Insulin Human Lispro (HumaLOG INSULIN) SEE PROTOCOL TABLE Q6H SC 05/02/20 12:00 05/06/20 05:29 Magnesium Sulfate/ Dextrose 1 gm/IV Miscellaneous Supplies 100 ml @ 100 mls/hr 0600,0700 IV 05/03/20 06:00 05/03/20 09:00 DC 05/03/20 07:03 Midazolam HCl (Versed) 2 mg Q15MP PRN IV AGITATION 05/02/20 15:15 05/06/20 05:26 Norepinephrine Bitartrate 8 mg/ Dextrose 500 ml @ 15 mls/hr Q24H IV 05/03/20 05:00 Hold 05/03/20 17:59 Nystatin (Mycostatin Powder, Nystop) BILATERAL BREASTS & GROIN BID TOP 05/02/20 21:00 05/06/20 08:35 Pantoprazole Sodium (Protonix) 40 mg DAILY IV 05/03/20 09:00 05/06/20 08:34 Piperacillin Sod/ Tazobactam Sod 2.25 gm/Dextrose 50 ml @ 100 mls/hr Q6H IV 05/02/20 16:00 05/06/20 10:15 Piperacillin Sod/ Tazobactam Sod 3.375 gm/Dextrose 50 ml @ 50 mls/hr Q8H IV 05/02/20 15:00 05/02/20 15:24 DC Propofol 1000 mg/ IV Miscellaneous Supplies 100 ml @ 5.31 mls/hr [id number] IV 05/02/20 16:00 05/02/20 17:47 DC 05/02/20 17:40 Sodium Chloride 1,000 ml @ 100 mls/hr Q10H IV 05/02/20 13:18 05/02/20 15:24 DC Sodium Chloride 1,000 ml @ 100 mls/hr Q10H IV 05/03/20 23:00 05/06/20 10:15 Sodium Chloride 1,000 ml @ 330 mls/hr Q3H2M IV 05/03/20 16:15 05/03/20 19:16 DC 05/03/20 16:06 Sodium Chloride 1,000 ml @ 333 mls/hr Q3H1M IV 05/03/20 20:00 05/03/20 23:00 DC 05/03/20 20:21 Vancomycin HCl 500 mg/Dextrose 110 ml @ 110 mls/hr Q24H IV 05/03/20 06:00 05/04/20 08:14 DC 05/03/20 05:56 Vancomycin HCl 750 mg/IV Miscellaneous Supplies 1 each/ Dextrose 275 ml @ 275 mls/hr Q24H IV 05/03/20 05:00 05/04/20 08:14 DC 05/03/20 04:45 Vancomycin HCl 1000 mg/IV Miscellaneous Supplies 1 each/ Dextrose 270 ml @ 270 mls/hr Q1H IV 05/02/20 17:00 05/02/20 18:59 DC 05/02/20 19:14 Vancomycin HCl 1000 mg/IV Miscellaneous Supplies 1 each/ Dextrose 270 ml @ 270 mls/hr Q24H IV 05/05/20 08:00 05/04/20 08:56 DC Vasopressin 20 units/Sodium Chloride 500 ml @ 60 mls/hr Q8H20M IV 05/02/20 15:00 05/04/20 08:56 DC 05/04/20 05:09 Assessment /Plan Assessment ASSESSMENT: 1. Acute metabolic encephalopathy 2. Acute respiratory failure s/p intubation on admission 1. Septic shock, resolved 2. Acute kidney injury 3. Hyperkalemia, improved 4. Atrial fibrillation, with non sustained v tach, 5. chronic anticoagulation with xarelto 6. Severe lactic acidosis 7. Diabetes Mellitus type II, with hyperglycemia 8. elevated LFTs, with hyperbilirubinemia 9. Candidiasis with superimposed cellulitis, 10. Frequent non sustained ventricular tachycardia likely due to dopamine, much improved 11 Acute pancreatitis, in CT 12. Elevated TSH 13. Anemia, possible acute blood loss anemia, suspected gastritis, UGIB 14. thrombocytopenia, could be due to sepsis, medications, 15. Mild DIC PLANS: continue antibiotics renal dosign - zosyn. gram negative bacilli. Repeat blood cultures. currently still intubated - defer to Regional Sales Consultant. she is still not fully awake. off pressors. renal function stable I and O noted. critically ill Code status: FULL CODE . BAUDILIOKJovanny, , of whom I have been communicating with since admission. For now, he still wants full code as he seen some improvement. Prognosis still guarded DVT: SCD, off heparin due to thrombocytopenia VS,Fishbone, I+O VS, Fishbone, I+O Laboratory Tests 05/05/20 17:51 05/06/20 03:50 Vital Signs Date Time Temp Pulse Resp B/P (MAP) Pulse Ox O2 Delivery O2 Flow Rate FiO2 05/06/20 08:00 79 19 114/58 (76) 96 Ventilator 21 05/06/20 07:00 97.5 I&O- Last 24 Hours up to 6 AM 05/06/20 06:00 Intake Total 4070 ml Output Total 1810 ml Balance 2260 ml CARLOS ALMARAZ MD May 06, 2020 10:29
[2020-05-06] MEDS: LEVEMIR (INSULIN DETEMIR) 1 UNITS/0.01ML SC SCH (19:53)
[2020-05-07] VITALS (26 sets, daily range): BP systolic 80–118; BP diastolic 41–71
[2020-05-07] MEDS: HumaLOG INSULIN (NovoLOG) PER UNIT SC SCH ×4 (00:06→18:42)
[2020-05-07] MEDS: MIDAZOLAM INJ 2MG/2ML VIAL (J2250 PER 1MG) IV PRN ×2 (00:06→04:35)
[2020-05-07] MEDS: HYDROCORTISONE 100 MG/2 ML VIAL (J1720 PER 1) IV SCH (04:35)
[2020-05-07] MEDS: PIPERACILLIN/TAZOBACTAM SOD 2.25 GM in D5W MINI-BAG PLUS 50 ML IV SCH ×2 (04:35→10:01)
[2020-05-07 05:14] LABS: BASO # 0.1 10^3/uL (0.0-0.2); BASO % 0.3 % (0.0-1.0); EOS % 0.1 % (0.0-3.0); HEMATOCRIT 27.4 % (36.0-47.0); HEMOGLOBIN 10.1 g/dl (12.0-15.5); LYMPH # 0.8 10^3/uL (1.5-5.0); MEAN CORPUSCULAR HEMOGLOBIN 36.7 pg (27.0-33.0); MEAN CORPUSCULAR HGB CONC 36.9 g/dl (32.0-36.5); MEAN CORPUSCULAR VOLUME 99.6 fl (80.0-96.0); MONO # 1.2 10^3/uL (0.0-0.8); MONO % 6.4 % (0.0-5.0); NEUTROPHILS # 17.1 10^3/uL (1.5-8.5); NEUTROPHILS % 87.3 % (36.0-66.0); RED BLOOD COUNT 2.75 10^6/uL (4.00-5.40); WHITE BLOOD COUNT 19.5 10^3/uL (4.0-10.0)
[2020-05-07 05:31] LABS: PLATELET COUNT, AUTOMATED 47 10^3/uL (150-450)
[2020-05-07 05:43] LABS: ALBUMIN 1.6 GM/DL (3.2-5.2); BILIRUBIN,TOTAL 2.1 MG/DL (0.2-1.0); CALCIUM LEVEL 6.9 MG/DL (8.8-10.2); CREATININE FOR GFR 2.59 MG/DL (0.55-1.30); GLOMERULAR FILTRATION RATE 18.9 (>32); PHOSPHORUS LEVEL 2.7 MG/DL (2.5-4.9); POTASSIUM SERUM 3.4 MEQ/L (3.5-5.1); TOTAL PROTEIN 4.1 GM/DL (6.4-8.2)
[2020-05-07 05:51] LABS: INR 1.61; PROTHROMBIN TIME 19.5 SECONDS (11.8-14.0)
[2020-05-07 05:57] LABS: ABG pH (ARTERIAL) 7.389 UNITS (7.350-7.450)
[2020-05-07 05:58] LABS: ABG BASE EXCESS -6.2 (-2.0-2.0); ABG HCO3 17.8 MEQ/L (22.0-26.0); ABG O2 SATURATION 95.1 % (95.0-99.0); ABG PARTIAL PRESSURE CO2 30.2 mmHg (35.0-45.0); ABG PARTIAL PRESSURE O2 82.8 mmHg (75.0-100.0); ABG STANDARD HCO3 19.3 MEQ/L (22.0-26.0); ABG TOTAL CO2 18.8 MEQ/L (23.0-31.0)
[2020-05-07] MEDS: PANTOPRAZOLE 40MG VIAL (C9113 PER 1) IV SCH (08:35)
[2020-05-07] MEDS: CHLORHEXIDINE GLUCONATE 0.12 % 15ML UDC (PERIDEX ORAL RINSE) MT SCH ×2 (08:35→20:38)
[2020-05-07] MEDS: NYSTATIN 100,000 UNITS/GM TOPICAL PWD 15 GM TOP SCH ×2 (08:36→20:38)
[2020-05-07] MEDS: NS 1,000 ML IV SCH ×2 (10:09→22:24)
[2020-05-07] MEDS ORDERED: MIDAZOLAM INJ 2MG/2ML VIAL (J2250 PER 1MG) IV PRN (10:30)
[2020-05-07] MEDS: KCL 10MEQ/100ML SWI (KRUN) 10 MEQ in IV 1 EA IV SCH ×3 (10:56→13:10)
[2020-05-07] MEDS ORDERED: GENTAMICIN 140 MG in D5W 50 ML IV ONE (12:00)
[2020-05-07] MEDS ORDERED: D5W IV ONE (12:00)
[2020-05-07] MEDS ORDERED: GENTAMICIN IV ONE (12:00)
[2020-05-07] MEDS ORDERED: GENTAMICIN INTERMITTENT/PULSE DOSING BY CLINICAL PHARMACIST PER DOSING PROTOCOL XX SCH (12:30)
[2020-05-07 12:49] LABS: CLOSTRIDIUM DIFFICILE PCR POSITIVE (NEGATIVE)
--- NOTE | 2020-05-07 13:44 | IPNPDOC ---
Date Seen The patient was seen on 05/07/20. Progress Note TOTAL CRITICAL CARE TIME SPENT CARING FOR PATIENT (no procedures) : 60 mins SUBJECTIVE: Not following commands, reactive to loud verbal and painful stimuli. + bacteremia, + c. difficile. Hypothermic with lower blood pressures remain. Added gentamycin, d/c zosyn and added PO vancomycin. Discussed case with critical are attending, remains critical status with only minor improvement. OBJECTIVE PHYSICAL EXAMINATION: VITAL SIGNS: Please see below, Pressure support mode, FiO2 20%, RR 24, BP 91/63, HR 83 GENERAL: On ventilator, responsive to verbal and painful stimuli. HEENT: AT/NC, OG tube CARDIOVASCULAR: S1S2 +, no M/R/G RESPIRATORY: CTAB, no W/r/r ABDOMINAL: soft, obese, BS hyperactive in 4 quadrants, no organomegaly EXTREMITIES: warm, no cyanosis or dusking, +2 pitting edema INTEGUMENTARY: celluilitis b/l lower ext, chronic skin changes, NEUROLOGICAL: No following commands, not tracking with eyes. Reflexes intact LABORATORY DATA, IMAGING STUDIES, MICROBIOLOGY: Please see below. ASSESSMENT: This is a 79 y/o F admitted to ICU with sepsis 2/2 to soft tissue cellulitis, bacteremia, now c. difficile colitis, acute respiratory failure 2/2 to encephalopathy due to sepsis. PLAN: 1. Acute metabolic encephalopathy 2/2 to sepsis, septic shock. On ventilator, not following commands but responsive to loud verbal and painful stimuli. Had two doses of 2 mg versed overnight so this possibly could be preventing her from participating with exam. Will decrease versed dose PRN. Will consider EEG, discussed with ICU attending. 2. Acute respiratory failure s/p intubation on admission 2/2 to septic shock, metabolic encephalopathy. Tolerating pressure support well; however, no f ollowing commands and risk of failing extubation high. C/w treatment plan below and will consider weaning trial if improves. 3. Septic shock 2/2 to sphingomonas paucimobilis (bacteremia), c. difficile colitis. Cannot rule out known pancreatitis, ? obstructive biliary cause, lower ext cellulitis or left lateral chest induration (see on CT) as infectious cause as of worsening leukocytosis. Not on pressor support anymore; however, CBC leukocytosis worsened over the past several days despite zosyn, added gentamycin and PO vancomycin today. No ID consult available at this time. F/u on remaining blood cultures, repeat in 48 hours after gentamycin has had time to work. F/u daily CBC. Consider repeat CXR and CT abd/pelvis if WBC continues to increase. No repeat lactic acid in several days, f/u results. 4. C. difficile colitis, sepsis. New onset since admission, has been on several abx. Po vancomycin started, d/c zosyn. Digishield in place. IVFs minimal. 5. Acute kidney injury 2/2 to sepsis, septic shock. No longer on pressors, Cr 2.59, not much improved. Renal dosing gentamycin, monitor for worsening renal failure with daily labs. Mcpherson cath in place, consider nephrology consult. 6. Hypokalemia. S/p 30 mEq supplementation, f/u daily labs, monitor on tele. 7. Atrial fibrillation, chronic. Currently rate controlled, not currently on xarelto due to DIC. Monitor on telemetry. 8. Left lateral chest induration see on CT chest. No obvious swelling on exam. D/c zosyn, monitor for signs of worsening swelling. 9. Diabetes Mellitus type II, with hyperglycemia. BS 209, on glucerna tube feeding, levemir, ISS with Q6hrs finger sticks. Goal BS <200 if possible. 10. Elevated LFTs with hyperbilirubinemia. Improving. Abnormal CT abd/pelvis, T bili still elevated. Consider repeat CT abd/pelvis is condition worsens. 11. Candidiasis with superimposed cellulitis. C/w nystatin powder, improving slowly. 12. Acute pancreatitis, in CT. Lipase low, WBC high. Monitor closely with CMP daily, CBC daily. Consider GI consult if worsens. 13. Elevated TSH, likely reative to sepsis. 14. DIC. PLTs stable in 40's, no signs of acute bleeding. F/u daily CBC, consider heme/onc consult if worsens. 15. Anemia, possible acute blood loss anemia, suspected gastritis, UGIB. No signs of acute bleeding currently. H/H daily. 16. GI px. PPI. 17. DVT px. SCDS, Contraindicated due to ? GI bleed, DIC DISPOSITION: Status is currently still very guarded. FULL CODE. Discussed case with ICU attending and will make changes above and see if improvements. VS, I&O, 24H, Fishbone Vital Signs/I&O Vital Signs Date Time Temp Pulse Resp B/P (MAP) Pulse Ox O2 Delivery O2 Flow Rate FiO2 05/07/20 09:00 78 20 106/60 (75) 92 05/07/20 07:30 90.5 05/07/20 04:03 21 05/07/20 04:00 Ventilator I&O- Last 24 Hours up to 6 AM 05/07/20 05:59 Intake Total 2840 ml Output Total 1375 ml Balance 1465 ml Laboratory Data 24H LABS Laboratory Tests 2 05/07/20 05:00: Immature Granulocyte % (Auto) 1.9, Neutrophils (%) (Auto) 87.3H, Lymphocytes (%) (Auto) 4.0L, Monocytes (%) (Auto) 6.4H, Eosinophils (%) (Auto) 0.1, Basophils (%) (Auto) 0.3, Neutrophils # (Auto) 17.1H, Lymphocytes # (Auto) 0.8L, Monocytes # (Auto) 1.2H, Eosinophils # (Auto) 0.0, Basophils # (Auto) 0.1, Nucleated Red Blood Cells % (auto) 0.3H, Immature Platelet Fraction 8.7, Anion Gap 10, Glomerular Filtration Rate 18.9L, Calcium Level 6.9L, Phosphorus Level 2.7, Magnesium Level 2.0, Total Bilirubin 2.1H, Aspartate Amino Transf (AST/SGOT) 70H, Alanine Aminotransferase (ALT/SGPT) 64, Alkaline Phosphatase 388H, Lactate Dehydrogenase 388H, Total Creatine Kinase 38, Total Protein 4.1L, Albumin 1.6L, Albumin/Globulin Ratio 0.6L, Triglycerides Level 36, Cholesterol Level 86 05/07/20 05:25: Prothrombin Time 19.5H, Prothromb Time International Ratio 1.61, Fibrinogen 123L 05/07/20 05:50: Blood Gas Bicarbonate Standard 19.3L, Arterial Blood pH 7.389, Arterial Blood Partial Pressure CO2 30.2L, Arterial Blood Partial Pressure O2 82.8, Arterial Blood Total CO2 18.8L, Arterial Blood HCO3 17.8L, Arterial Blood Base Excess - 6.2L, Arterial Blood Oxygen Saturation 95.1 05/07/20 10:40: Clostridium difficile [id number] PRESUMPTIVE NEGATIVE, Clostridium difficile Toxin (PCR) POSITIVEA CBC/BMP Laboratory Tests 05/07/20 05:00 Microbiology Microbiology 05/02/20 Blood Culture - Final, Complete NO GROWTH AFTER 5 DAYS 05/02/20 Urine Culture - Final, Complete 05/02/20 Blood Culture - Final, Complete Sphingomonas Paucimobilis Current Medications Current Medications Medications (Trade) Dose Ordered Sig/Leah Route PRN Reason Start Time Stop Time Status Last Admin Dose Admin Albuterol Sulfate (Proventil Neb) 2.5 mg Q6HP PRN NEB SHORTNESS OF BREATH 05/02/20 13:30 Calcium Chloride (Calcium Chloride 10%) 1 gm STAT STAT IV 05/02/20 11:32 05/02/20 11:38 DC 05/02/20 12:53 Chlorhexidine Gluconate (Peridex Oral Rinse) SWAB/BRUSH ORAL CAVITY BID MT 05/02/20 21:00 05/07/20 08:35 Dextrose (Dextrose 50%) 25 ml ASDIRECTED PRN IV SEE LABEL COMMENTS 05/02/20 14:00 Dextrose (Dextrose 50%) 50 ml STAT STAT IV 05/02/20 11:32 05/02/20 11:36 DC 05/02/20 12:53 Dopamine HCl 400 mg/IV Miscellaneous Supplies 500 ml @ 3.319 mls/ hr Q24H IV 05/02/20 12:15 05/02/20 12:33 DC 05/02/20 12:27 Dopamine HCl 400 mg/IV Miscellaneous Supplies 500 ml @ 66.375 mls/ hr Q7H32M IV 05/02/20 13:00 05/02/20 13:47 DC 05/02/20 12:56 Dopamine HCl 800 mg/IV Miscellaneous Supplies 500 ml @ 1.659 mls/ hr Q24H IV 05/02/20 12:15 Cancel Fentanyl Citrate (Sublimaze) 25 mcg Q4HP PRN IV PAIN 05/02/20 15:15 Glucagon (Glucagon) 1 mg ASDIRECTED PRN SC SEE LABEL COMMENTS 05/02/20 14:00 Glucagon (Glucagon) 3 mg STAT STAT IV 05/03/20 10:45 05/03/20 10:49 DC 05/03/20 12:06 Glucagon (Glucagon) 3 mg STAT STAT IV 05/03/20 14:11 05/03/20 14:13 DC 05/03/20 14:45 Glucose (Glucose) 16 GM ASDIRECTED PRN PO SEE LABEL COMMENTS 05/02/20 14:00 Home Med (Med Rec Complete!) ASDIRECTED XX 05/02/20 11:00 05/02/20 10:52 DC Hydrocortisone (A-Hydrocort) 100 mg Q8H IV 05/03/20 12:00 05/07/20 10:07 DC 05/07/20 04:35 Insulin Detemir (Levemir Insulin) 10 units QHS SC 05/06/20 21:00 05/06/20 19:53 Insulin Human Lispro (HumaLOG INSULIN) SEE PROTOCOL TABLE Q6H SC 05/02/20 12:00 05/07/20 12:27 Linezolid 600 mg/ IV Miscellaneous Supplies 300 ml @ 150 mls/hr Q12H IV 05/02/20 14:00 05/02/20 15:24 DC Magnesium Sulfate/ Dextrose 1 gm/IV Miscellaneous Supplies 100 ml @ 100 mls/hr 0600,0700 IV 05/03/20 06:00 05/03/20 09:00 DC 05/03/20 07:03 Midazolam HCl (Versed) 1 mg Q15MP PRN IV AGITATION 05/07/20 10:30 Midazolam HCl (Versed) 2 mg Q15MP PRN IV AGITATION 05/02/20 15:15 05/07/20 10:27 DC 05/07/20 04:35 Midazolam HCl 50 mg/Dextrose 50 ml @ 2 mls/hr Q24H IV 05/02/20 20:30 05/03/20 12:23 DC 05/02/20 20:58 Miscellaneous (Unresolved Clarification Entry) SEE LABEL COMMENTS DAILY XX 05/06/20 09:00 05/06/20 17:34 DC Non-Formulary Medication ( See Comment Field Below ) GENTAMICIN INTERMIT. DOSING ASDIRECTED XX 05/07/20 12:30 Norepinephrine Bitartrate 8 mg/ Dextrose 500 ml @ 15 mls/hr Q24H IV 05/03/20 05:00 Hold 05/03/20 17:59 Norepinephrine Bitartrate 8 mg/ Dextrose 500 ml @ 18.75 mls/ hr Q24H IV 05/02/20 14:00 05/03/20 05:00 DC 05/03/20 01:07 Nystatin (Mycostatin Powder, Nystop) BILATERAL BREASTS & GROIN BID TOP 05/02/20 21:00 05/07/20 08:36 Pantoprazole Sodium (Protonix) 40 mg DAILY IV 05/03/20 09:00 05/07/20 08:35 Piperacillin Sod/ Tazobactam Sod 2.25 gm/Dextrose 50 ml @ 100 mls/hr Q6H IV 05/02/20 16:00 05/07/20 13:29 DC 05/07/20 10:01 Piperacillin Sod/ Tazobactam Sod 3.375 gm/Dextrose 50 ml @ 50 mls/hr Q8H IV 05/02/20 15:00 05/02/20 15:24 DC Potassium Chloride 10 meq/ IV Miscellaneous Supplies 100 ml @ 100 mls/hr Q1H IV 05/07/20 10:30 05/07/20 13:29 DC 05/07/20 13:10 Propofol 1000 mg/ IV Miscellaneous Supplies 100 ml @ 5.31 mls/hr [id number] IV 05/02/20 16:00 05/02/20 17:47 DC 05/02/20 17:40 Sodium Chloride 1,000 ml @ 80 mls/hr [id number] IV 05/03/20 23:00 05/07/20 10:09 Sodium Chloride 1,000 ml @ 100 mls/hr Q10H IV 05/02/20 13:18 05/02/20 15:24 DC Sodium Chloride 1,000 ml @ 330 mls/hr Q3H2M IV 05/03/20 16:15 05/03/20 19:16 DC 05/03/20 16:06 Sodium Chloride 1,000 ml @ 333 mls/hr Q3H1M IV 05/03/20 20:00 05/03/20 23:00 DC 05/03/20 20:21 Vancomycin HCl (First-Vancomycin 50(Firvanq)- 250mg/5ml) 500 mg Q6H PO 05/07/20 12:00 Vancomycin HCl 500 mg/Dextrose 110 ml @ 110 mls/hr Q24H IV 05/03/20 06:00 05/04/20 08:14 DC 05/03/20 05:56 Vancomycin HCl 750 mg/IV Miscellaneous Supplies 1 each/ Dextrose 275 ml @ 275 mls/hr Q24H IV 05/03/20 05:00 05/04/20 08:14 DC 05/03/20 04:45 Vancomycin HCl 1000 mg/IV Miscellaneous Supplies 1 each/ Dextrose 270 ml @ 270 mls/hr Q1H IV 05/02/20 17:00 05/02/20 18:59 DC 05/02/20 19:14 Vancomycin HCl 1000 mg/IV Miscellaneous Supplies 1 each/ Dextrose 270 ml @ 270 mls/hr Q24H IV 05/05/20 08:00 05/04/20 08:56 DC Vasopressin 20 units/Sodium Chloride 500 ml @ 60 mls/hr Q8H20M IV 05/02/20 15:00 05/04/20 08:56 DC 05/04/20 05:09 Allergies Coded Allergies: latex (Verified Allergy, Intermediate, RASH, 05/02/20) Clara Parra MD May 07, 2020 13:44
[2020-05-07] MEDS: VANCOMYCIN ORAL SOL 250MG/5ML ORAL SYRINGE PO SCH ×2 (15:33→18:42)
[2020-05-07] MEDS: LEVEMIR (INSULIN DETEMIR) 1 UNITS/0.01ML SC SCH (20:38)
[2020-05-08] VITALS (21 sets, daily range): BP systolic 77–113; BP diastolic 44–68; O2SAT 95
[2020-05-08] MEDS: HumaLOG INSULIN (NovoLOG) PER UNIT SC SCH ×3 (00:42→11:59)
[2020-05-08] MEDS ORDERED: diphenhydrAMINE 50MG/ML VIAL (J1200) IV STA (01:17)
[2020-05-08] MEDS: VANCOMYCIN ORAL SOL 250MG/5ML ORAL SYRINGE PO SCH ×2 (06:00)
[2020-05-08 06:06] LABS: ABG BASE EXCESS -4.3 (-2.0-2.0); ABG HCO3 19.1 MEQ/L (22.0-26.0); ABG O2 SATURATION 94.9 % (95.0-99.0); ABG PARTIAL PRESSURE CO2 29.1 mmHg (35.0-45.0); ABG STANDARD HCO3 20.9 MEQ/L (22.0-26.0); ABG TOTAL CO2 19.9 MEQ/L (23.0-31.0); ABG pH (ARTERIAL) 7.434 UNITS (7.350-7.450)
[2020-05-08] MEDS ORDERED: diphenhydrAMINE 50MG/ML VIAL (J1200) IV PRN (06:15)
[2020-05-08 06:20] LABS: BASO # 0.1 10^3/uL (0.0-0.2); BASO % 0.3 % (0.0-1.0); EOS % 0.2 % (0.0-3.0); HEMATOCRIT 24.2 % (36.0-47.0); HEMOGLOBIN 8.9 g/dl (12.0-15.5); LYMPH # 1.1 10^3/uL (1.5-5.0); LYMPH % 5.7 % (24.0-44.0); MEAN CORPUSCULAR HEMOGLOBIN 36.8 pg (27.0-33.0); MONO # 1.9 10^3/uL (0.0-0.8); MONO % 9.8 % (0.0-5.0); NEUTROPHILS # 15.2 10^3/uL (1.5-8.5); NEUTROPHILS % 80.4 % (36.0-66.0); RED BLOOD COUNT 2.42 10^6/uL (4.00-5.40); WHITE BLOOD COUNT 18.9 10^3/uL (4.0-10.0)
[2020-05-08] MEDS: NS 1,000 ML IV SCH (06:35)
[2020-05-08 06:46] LABS: ALBUMIN 1.4 GM/DL (3.2-5.2); BILIRUBIN,TOTAL 1.8 MG/DL (0.2-1.0); CALCIUM LEVEL 7.2 MG/DL (8.8-10.2); CREATININE FOR GFR 2.75 MG/DL (0.55-1.30); GLOMERULAR FILTRATION RATE 17.7 (>32); MAGNESIUM LEVEL 2.1 MG/DL (1.8-2.4); PHOSPHORUS LEVEL 3.2 MG/DL (2.5-4.9); POTASSIUM SERUM 4.2 MEQ/L (3.5-5.1); TOTAL PROTEIN 3.9 GM/DL (6.4-8.2)
[2020-05-08 06:56] LABS: PLATELET COUNT, AUTOMATED 51 10^3/uL (150-450)
[2020-05-08 06:57] LABS: MEAN CORPUSCULAR HGB CONC 36.8 g/dl (32.0-36.5)
[2020-05-08] MEDS: PANTOPRAZOLE 40MG VIAL (C9113 PER 1) IV SCH (08:31)
[2020-05-08] MEDS: NYSTATIN 100,000 UNITS/GM TOPICAL PWD 15 GM TOP SCH (08:31)
[2020-05-08] MEDS: CHLORHEXIDINE GLUCONATE 0.12 % 15ML UDC (PERIDEX ORAL RINSE) MT SCH (08:31)
[2020-05-08] MEDS ORDERED: FIDAXOMICIN 200 MG TAB (DIFICID) PO SCH (09:00)
--- NOTE | 2020-05-08 14:11 | IPNPDOC ---
Date Seen The patient was seen on 05/08/20. Progress Note TOTAL CRITICAL CARE TIME SPENT CARING FOR PATIENT (no procedures) : 50 mins SUBJECTIVE: Still not following commands, more alert today with being reactive to loud verbal and painful stimuli. Reaction to vancomycin with tongue swelling overnight, abx stopped and benadryl administered helping swelling. Given 500 cc bolus fluid this AM for lower than normal BP, low CVP 9 with improvement to CVP to 11, did not restart levophed. Hypothermia persists. Discussed patient's status with family Jovanny () and daughter over the phone last evening. Patient's HCP was found and additional paperwork indicating patient was DNR/DNI. There was discussion about family making [employer] possibly today when they come in to see her. She remains on gentamycin for bacteremia. Remains in critical status with no major improvement. OBJECTIVE PHYSICAL EXAMINATION: VITAL SIGNS: Please see below; Pressure support mode, FiO2 20%, RR 24, PEEP 5 GENERAL: On ventilator, responsive to verbal and painful stimuli and opening eyes more today but not following commands HEENT: AT/NC, OG tube CARDIOVASCULAR: S1S2 +, no M/R/G RESPIRATORY: CTAB, no W/r/r ABDOMINAL: soft, obese, BS hyperactive in 4 quadrants, no organomegaly : solis catheter with yellow urine, rectal tube in place EXTREMITIES: warm, no cyanosis or dusking, +2 pitting edema INTEGUMENTARY: celluilitis b/l lower ext, chronic skin changes, NEUROLOGICAL: No following commands, not tracking with eyes. Reflexes intact LABORATORY DATA, IMAGING STUDIES, MICROBIOLOGY: Please see below. ASSESSMENT: This is a 79 y/o F admitted to ICU with sepsis 2/2 to soft tissue cellulitis, bacteremia, now c. difficile colitis, acute respiratory failure 2/2 to encephalopathy due to sepsis. PLAN: 1. Acute metabolic encephalopathy 2/2 to sepsis, septic shock. On ventilator, not following commands but responsive to loud verbal and painful stimuli. More alert today but not much improved overall. Decreased versed dose PRN. See treatment of sepsis below. 2. Acute respiratory failure s/p intubation on admission 2/2 to septic shock, metabolic encephalopathy. Tolerating pressure support well; however, no following commands and risk of failing extubation high. C/w treatment plan below and will consider weaning trial if improves. 3. Septic shock 2/2 to sphingomonas paucimobilis (bacteremia), c. difficile colitis. Cannot rule out known pancreatitis, ? obstructive biliary cause, lower ext cellulitis or left lateral chest induration (see on CT) as infectious cause as of worsening leukocytosis. Required NS 500 cc bolus this AM for lower MAP, CVP 9. Not on pressor support; however, leukocytosis persists. On gentamycin. No ID consult available at this time. BCx to be repeated in AM, starting fidaxomicin today. F/u daily CBC. Consider repeat CXR and CT abd/pelvis if WBC continues to increase. Lactic acid improved some. 4. C. difficile colitis, sepsis. New onset since admission, has been on several abx. Po vancomycin stopped due to tongue swelling. Started on fidaxomicin, D/c zosyn on 05/07/20. Digishield in place. IVFs minimal. 5. Acute kidney injury 2/2 to sepsis, septic shock. No longer on pressors, Cr slightly worsened at 2.75, minimal output hourly. No improvement of output with bolus this AM and continues fluids at 80 cc/hr. Renal dosing gentamycin, monitor for worsening renal failure with daily labs. Solis cath in place. 6. Tongue swelling likely 2/2 to oral vancomycin. S/p benadryl, swelling persists but not increased. D/c vancomycin, listed as allergy, on ventilator. 7. Hypokalemia. Resolved. S/p 30 mEq supplementation 05/07/20, f/u daily labs. 8. Atrial fibrillation, chronic. Currently rate controlled, not currently on xarelto due to DIC. Monitor on telemetry. 9. Left lateral chest induration see on CT chest. No obvious swelling on exam. D/c zosyn, monitor for signs of worsening swelling. 10. Diabetes Mellitus type II, with hyperglycemia. BS 209, on glucerna tube feeding, levemir, ISS with Q6hrs finger sticks. Goal BS <200 if possible. 11.. Elevated LFTs with hyperbilirubinemia. Improving. Abnormal CT abd/pelvis, T bili still elevated. Consider repeat CT abd/pelvis is condition worsens. 12. Candidiasis with superimposed cellulitis. C/w nystatin powder, improving slowly. 13. Acute pancreatitis, in CT. Lipase low, WBC high. Monitor closely with CMP daily, CBC daily. Consider GI consult if worsens. 14. Elevated TSH, likely reative to sepsis. 15. DIC. PLTs stable in 51, no signs of acute bleeding. F/u daily CBC, consider heme/onc consult if worsens. 16. Anemia, possible acute blood loss anemia, suspected gastritis, UGIB. No signs of acute bleeding currently. H/H daily. 17. GI px. PPI. 18. DVT px. SCDS, Contraindicated due to ? GI bleed, DIC DISPOSITION: Status is currently still very guarded. Listed as full code but patient's family states there is documentation listed as DNR/DNI. Family to come in today to make decisions going further for treatment or discontinuation of treatment. VS, I&O, [facility] Vital Signs/I&O Vital Signs Date Time Temp Pulse Resp B/P (MAP) Pulse Ox O2 Delivery O2 Flow Rate FiO2 05/08/20 12:00 21 05/08/20 06:30 95.6 99 18 92/55 (67) 93 Ventilator I&O- Last 24 Hours up to 6 AM 05/08/20 06:00 Intake Total 2965 ml Output Total 810 ml Balance 2155 ml Laboratory Data 24H LABS Laboratory Tests 2 05/07/20 14:30: Lactic Acid Level 2.1*H 05/08/20 05:57: Blood Gas Bicarbonate Standard 20.9L, Arterial Blood pH 7.434, Arterial Blood Partial Pressure CO2 29.1L, Arterial Blood Partial Pressure O2 75.0, Arterial Blood Total CO2 19.9L, Arterial Blood HCO3 19.1L, Arterial Blood Base Excess - 4.3L, Arterial Blood Oxygen Saturation 94.9L 05/08/20 06:06: Immature Granulocyte % (Auto) 3.6H, Neutrophils (%) (Auto) 80.4H, Lymphocytes (%) (Auto) 5.7L, Monocytes (%) (Auto) 9.8H, Eosinophils (%) (Auto) 0.2, Basophils (%) (Auto) 0.3, Neutrophils # (Auto) 15.2H, Lymphocytes # (Auto) 1.1L, Monocytes # (Auto) 1.9H, Eosinophils # (Auto) 0.0, Basophils # (Auto) 0.1, Nucleated Red Blood Cells % (auto) 2.6H, Immature Platelet Fraction 8.6, Anion Gap 7L, Glomerular Filtration Rate 17.7L, Calcium Level 7.2L, Phosphorus Level 3.2, Magnesium Level 2.1, Total Bilirubin 1.8H, Aspartate Amino Transf (AST/SGOT) 79H, Alanine Aminotransferase (ALT/SGPT) 67, Alkaline Phosphatase 389H, Lactate Dehydrogenase 383H, Total Creatine Kinase 26, Total Protein 3.9L, Albumin 1.4L, Albumin/Globulin Ratio 0.6L, Triglycerides Level 32, Cholesterol Level 84, Random Gentamicin Level 2.0 CBC/BMP Laboratory Tests 05/08/20 06:06 Microbiology Microbiology 05/02/20 Blood Culture - Final, Complete NO GROWTH AFTER 5 DAYS 05/02/20 Urine Culture - Final, Complete 05/02/20 Blood Culture - Final, Complete Sphingomonas Paucimobilis Current Medications Current Medications Medications (Trade) Dose Ordered Sig/Leah Route PRN Reason Start Time Stop Time Status Last Admin Dose Admin Albuterol Sulfate (Proventil Neb) 2.5 mg Q6HP PRN NEB SHORTNESS OF BREATH 05/02/20 13:30 Calcium Chloride (Calcium Chloride 10%) 1 gm STAT STAT IV 05/02/20 11:32 05/02/20 11:38 DC 05/02/20 12:53 Chlorhexidine Gluconate (Peridex Oral Rinse) SWAB/BRUSH ORAL CAVITY BID MT 05/02/20 21:00 05/08/20 08:31 Dextrose (Dextrose 50%) 25 ml ASDIRECTED PRN IV SEE LABEL COMMENTS 05/02/20 14:00 Dextrose (Dextrose 50%) 50 ml STAT STAT IV 05/02/20 11:32 05/02/20 11:36 DC 05/02/20 12:53 Diphenhydramine HCl (Benadryl) 25 mg Q6HP PRN IV ITCHING 05/08/20 06:15 Diphenhydramine HCl (Benadryl) 25 mg STAT STAT IV 05/08/20 01:17 05/08/20 01:19 DC 05/08/20 01:21 Dopamine HCl 400 mg/IV Miscellaneous Supplies 500 ml @ 3.319 mls/ hr Q24H IV 05/02/20 12:15 05/02/20 12:33 DC 05/02/20 12:27 Dopamine HCl 400 mg/IV Miscellaneous Supplies 500 ml @ 66.375 mls/ hr Q7H32M IV 05/02/20 13:00 05/02/20 13:47 DC 05/02/20 12:56 Dopamine HCl 800 mg/IV Miscellaneous Supplies 500 ml @ 1.659 mls/ hr Q24H IV 05/02/20 12:15 Cancel Fentanyl Citrate (Sublimaze) 25 mcg Q4HP PRN IV PAIN 05/02/20 15:15 Glucagon (Glucagon) 1 mg ASDIRECTED PRN SC SEE LABEL COMMENTS 05/02/20 14:00 Glucagon (Glucagon) 3 mg STAT STAT IV 05/03/20 10:45 05/03/20 10:49 DC 05/03/20 12:06 Glucagon (Glucagon) 3 mg STAT STAT IV 05/03/20 14:11 05/03/20 14:13 DC 05/03/20 14:45 Glucose (Glucose) 16 GM ASDIRECTED PRN PO SEE LABEL COMMENTS 05/02/20 14:00 Home Med (Med Rec Complete!) ASDIRECTED XX 05/02/20 11:00 05/02/20 10:52 DC Hydrocortisone (A-Hydrocort) 100 mg Q8H IV 05/03/20 12:00 05/07/20 10:07 DC 05/07/20 04:35 Insulin Detemir (Levemir Insulin) 10 units QHS SC 05/06/20 21:00 05/07/20 20:38 Insulin Human Lispro (HumaLOG INSULIN) SEE PROTOCOL TABLE Q6H SC 05/02/20 12:00 05/08/20 11:59 Linezolid 600 mg/ IV Miscellaneous Supplies 300 ml @ 150 mls/hr Q12H IV 05/02/20 14:00 05/02/20 15:24 DC Magnesium Sulfate/ Dextrose 1 gm/IV Miscellaneous Supplies 100 ml @ 100 mls/hr 0600,0700 IV 05/03/20 06:00 05/03/20 09:00 DC 05/03/20 07:03 Midazolam HCl (Versed) 1 mg Q15MP PRN IV AGITATION 05/07/20 10:30 Midazolam HCl (Versed) 2 mg Q15MP PRN IV AGITATION 05/02/20 15:15 05/07/20 10:27 DC 05/07/20 04:35 Midazolam HCl 50 mg/Dextrose 50 ml @ 2 mls/hr Q24H IV 05/02/20 20:30 05/03/20 12:23 DC 05/02/20 20:58 Miscellaneous (Unresolved Clarification Entry) SEE LABEL COMMENTS DAILY XX 05/06/20 09:00 05/06/20 17:34 DC Non-Formulary Medication ( See Comment Field Below ) GENTAMICIN INTERMIT. DOSING ASDIRECTED XX 05/07/20 12:30 Norepinephrine Bitartrate 8 mg/ Dextrose 500 ml @ 15 mls/hr Q24H IV 05/03/20 05:00 Hold 05/03/20 17:59 Norepinephrine Bitartrate 8 mg/ Dextrose 500 ml @ 18.75 mls/ hr Q24H IV 05/02/20 14:00 05/03/20 05:00 DC 05/03/20 01:07 Nystatin (Mycostatin Powder, Nystop) BILATERAL BREASTS & GROIN BID TOP 05/02/20 21:00 05/08/20 08:31 Pantoprazole Sodium (Protonix) 40 mg DAILY IV 05/03/20 09:00 05/08/20 08:31 Piperacillin Sod/ Tazobactam Sod 2.25 gm/Dextrose 50 ml @ 100 mls/hr Q6H IV 05/02/20 16:00 05/07/20 13:29 DC 05/07/20 10:01 Piperacillin Sod/ Tazobactam Sod 3.375 gm/Dextrose 50 ml @ 50 mls/hr Q8H IV 05/02/20 15:00 05/02/20 15:24 DC Potassium Chloride 10 meq/ IV Miscellaneous Supplies 100 ml @ 100 mls/hr Q1H IV 05/07/20 10:30 05/07/20 13:29 DC 05/07/20 13:10 Propofol 1000 mg/ IV Miscellaneous Supplies 100 ml @ 5.31 mls/hr [id number] IV 05/02/20 16:00 05/02/20 17:47 DC 05/02/20 17:40 Sodium Chloride 1,000 ml @ 80 mls/hr [id number] IV 05/03/20 23:00 05/08/20 06:35 Sodium Chloride 1,000 ml @ 100 mls/hr Q10H IV 05/02/20 13:18 05/02/20 15:24 DC Sodium Chloride 1,000 ml @ 330 mls/hr Q3H2M IV 05/03/20 16:15 05/03/20 19:16 DC 05/03/20 16:06 Sodium Chloride 1,000 ml @ 333 mls/hr Q3H1M IV 05/03/20 20:00 05/03/20 23:00 DC 05/03/20 20:21 Vancomycin HCl (First-Vancomycin 50(Firvanq)- 250mg/5ml) 500 mg Q6H PO 05/07/20 12:00 05/08/20 06:13 DC 05/07/20 18:42 Vancomycin HCl 500 mg/Dextrose 110 ml @ 110 mls/hr Q24H IV 05/03/20 06:00 05/04/20 08:14 DC 05/03/20 05:56 Vancomycin HCl 750 mg/IV Miscellaneous Supplies 1 each/ Dextrose 275 ml @ 275 mls/hr Q24H IV 05/03/20 05:00 05/04/20 08:14 DC 05/03/20 04:45 Vancomycin HCl 1000 mg/IV Miscellaneous Supplies 1 each/ Dextrose 270 ml @ 270 mls/hr Q1H IV 05/02/20 17:00 05/02/20 18:59 DC 05/02/20 19:14 Vancomycin HCl 1000 mg/IV Miscellaneous Supplies 1 each/ Dextrose 270 ml @ 270 mls/hr Q24H IV 05/05/20 08:00 05/04/20 08:56 DC Vasopressin 20 units/Sodium Chloride 500 ml @ 60 mls/hr Q8H20M IV 05/02/20 15:00 05/04/20 08:56 DC 05/04/20 05:09 Allergies Coded Allergies: Vancomycin (Verified Allergy, Severe, tongue swelling, 05/08/20) latex (Verified Allergy, Intermediate, RASH, 05/02/20) Clara Parra MD May 08, 2020 14:11
[2020-05-08] MEDS ORDERED: MORPHINE 2 MG/ML 1ML VIAL (J2270) As Ordered ONE (15:59)
[2020-05-08] MEDS ORDERED: LORazepam 2 MG/ML VIAL IV PRN (16:00)
[2020-05-08] MEDS ORDERED: SCOPOLAMINE 1MG TRANSDERMAL PATCH TOP PRN (16:00)
[2020-05-08] MEDS ORDERED: ATROPINE SULFATE 1% OP SOLN 2 ML BTL SL PRN (16:00)
[2020-05-08] MEDS: MORPHINE 2 MG/ML 1ML VIAL (J2270) IV PRN ×2 (16:00→20:40)
[2020-05-09] MEDS ORDERED: LORazepam 2 MG/ML VIAL As Ordered ONE (00:05)
[2020-05-09] MEDS: MORPHINE 2 MG/ML 1ML VIAL (J2270) IV PRN (00:49)
[2020-05-09] MEDS: NYSTATIN 100,000 UNITS/GM TOPICAL PWD 15 GM TOP SCH (22:41)
[2020-05-10] MEDS: MORPHINE 2 MG/ML 1ML VIAL (J2270) IV PRN ×2 (01:10→23:01)
[2020-05-10] MEDS: NYSTATIN 100,000 UNITS/GM TOPICAL PWD 15 GM TOP SCH ×2 (09:00→22:48)
--- NOTE | 2020-05-10 15:43 | REP ---
PORTABLE CHEST SINGLE AP VIEW WITH PATIENT SITTING UPRIGHT Delay in reporting results from hospital computer malfunction from malware. COMPARISON: 05/02/2020. FINDINGS: The endotracheal tube has been repositioned and the tip is now in the trachea at the level of the aortic arch above the gatito. There is a left IJ central venous catheter with the tip in the right atrium in satisfactory position. There is no pneumothorax or pleural fluid collection. There is a nasogastric tube with the tip terminating in the abdominal left upper quadrant. The dome of the left hemidiaphragm is mildly obscured consistent with left lung atelectasis/infiltrate. The lung de guzman are otherwise clear. Cardiac size is normal. IMPRESSION: Lines and tubes as described. Left lower lobe atelectasis/infiltrate. MTDD
--- NOTE | 2020-05-10 15:45 | REP ---
PORTABLE CHEST X-RAY: SINGLE VIEW HISTORY: Intubated patient. COMPARISON: Chest x-ray from 05/03/20. FINDINGS: A nasogastric tube enters the left upper quadrant. Endotracheal tube is seen in good position at the level of the transverse aorta. EKG monitoring electrodes are seen. A left internal jugular central venous line terminates in the expected location of the superior vena cava. There are clips in the right upper quadrant of the abdomen. The heart is prominent in size, unchanged. There is blunting of the left lateral pleural angle and slight blunting of the right lateral pleural angle is seen. There is right base platelike atelectasis. Pulmonary vasculature is cephalized. No new infiltrate is seen. MTDD
--- NOTE | 2020-05-10 15:46 | REP ---
SITTING PORTABLE CHEST X-RAY: SINGLE VIEW HISTORY: Intubated patient. COMPARISON: 05/04/2020. FINDINGS: The patient is rotated somewhat to the left for the current exposure. Monitoring electrodes are again seen. There is an NG tube in his left upper quadrant. Endotracheal tube is seen in good position at the level of the transverse aorta. A left IJ central venous line terminates in the expected location of the superior vena cava. There is increased density behind the heart in the left lower lobe region consistent with effusion versus atelectasis or infiltrate in the left lower lobe. This is more prominent than on previous films. IMPRESSION: Increased density behind the heart in the left base, effusion versus infiltrate versus atelectasis. MTDD
--- NOTE | 2020-05-10 15:47 | REP ---
PORTABLE CHEST X-RAY: SINGLE VIEW HISTORY: Intubated patient. COMPARISON: Chest x-ray 05/05/2020. FINDINGS: Oxygen delivery tubing monitoring electrodes overlie the chest. Endotracheal tube is seen in good position at the level of the transverse aorta. An NG tube enters the stomach. A left internal jugular central venous line is noted terminated at the expected location of the superior vena cava. There is hazy opacity in the left base behind the heart unchanged, question pleural effusion. No new infiltrate is seen. MTDD
--- NOTE | 2020-05-10 15:50 | REP ---
PORTABLE CHEST X-RAY CLINICAL: Status post intubation. COMPARISON: 05/06/2020. FINDINGS: Endotracheal tube 2 cm above the gatito. Nasogastric tube courses below the left hemidiaphragm. Left IJ line with tip in the SVC/right atrium. The mediastinum and cardiac silhouette are relatively stable. Perihilar and left lower lobe/retrocardiac opacities suggest elements of atelectasis and possible partial left lower lobe collapse. Small layering pleural effusions cannot be excluded. No pneumothorax. Skeletal structures intact. IMPRESSION: Possible infrahilar atelectasis and left lower lobe/retrocardiac consolidation/partial collapse, as well as small layering effusions. MTDD
[2020-05-11] MEDS: NYSTATIN 100,000 UNITS/GM TOPICAL PWD 15 GM TOP SCH ×2 (10:16→22:18)
[2020-05-11] MEDS: MORPHINE 2 MG/ML 1ML VIAL (J2270) IV PRN (15:37)
[2020-05-12] MEDS: NYSTATIN 100,000 UNITS/GM TOPICAL PWD 15 GM TOP SCH ×2 (09:57→21:04)
[2020-05-12] MEDS: MORPHINE 2 MG/ML 1ML VIAL (J2270) IV PRN ×2 (12:41→16:06)
[2020-05-13] MEDS: NYSTATIN 100,000 UNITS/GM TOPICAL PWD 15 GM TOP SCH (13:48)
--- NOTE | 2020-05-13 15:42 | DS.PDOC ---
Discharge Summary General Date of Admission May 02, 2020 at 13:18 Date of Discharge 05/13/20 Attending Physician: Clara Parra MD Discharge Summary THIS IS A SUMMARY HPI: Ms. Stevens is a 79 year old elderly woman, with known history of diabetes mellitus type II, CAD 2009 PCI, Hypertension, CKD, stage ?; atrial fibrillation, with chronic anticoagulation with xarelto, presented to hospital due confusion. History provided by patient's , Jovanny Stevens. He mentioned that patient started to get sick early March and admitted at [facility], for hyponatremia and hyperkalemia, along with UTI. She was discharge home with antibiotics, but had been quite weak, no rehab placement. Patient had been doing fine after this hospitalization. However, in the past week, patient had been complaining of being weak, encouraged her to see a doctor but patient declined. He noticed that in the past 4 days, patient had been forgetful, but not outright confused. patient not eating or drinking well, but denies any vomiting, or abdominal pain. No mention of fever, or cough, or diarrhea. She was supposed to follow up with Dr. Akbar. noticed that she has been sleeping a lot, which is unusual. On arrival to ED, patient was severely hypotension, 80s systolic and hypothermic. patient was quite lethagic, almost obtunded as per ED. Given sepsis bolus, and initially BP improved but became hypotensive again and thus right central line placed, and started on dopamine and currently at 10 mcg. Work-up revealed patient had hyperkalemia, renal failure, severe lactic acidosis. CXR and CT head did not show acute findings. Noted elevated right hemidiaphragm per report. (unable to view any images in the system). Patient emprically started on IV rocephin [address] chest and abdomen due to severe lactic acidosis. HOSPITAL COURSE: Patient was admitted to hospital and ICU care. She was confused, acute metabolic encephalopathy 2/2 to sepsis, septic shock on ventilator, not following commands but responsive to loud verbal and painful stimuli. Acute respiratory failure s/p intubation on admission 2/2 to septic shock, metabolic encephalopathy. Tolerating pressure support well; however, no following commands and risk of failing extubation high. C/w treatment plan below and will consider weaning trial if improves. Septic shock was found to be 2/2 to sphingomonas paucimobilis (bacteremia), c. difficile colitis. We also cold not rule out known pancreatitis, ? obstructive biliary cause, lower ext cellulitis or left lateral chest induration (see on CT) as infectious cause as of worsening leukocytosis. She was taken off pressors but her blood pressure remained low. CBC leukocytosis worsened over the past several days despite zosyn, added gentamycin and PO vancomycin today. No ID consult available at this time. She had a reaction to PO vancomycin, and was changed to fidaxomicin. Acute kidney injury 2/2 to sepsis, septic shock remained present, unchanged and not improved. She also had elevated LFTs with hyperbilirubinemia. She was being treated for Candidiasis with superimposed cellulitis as well. Family met with attending (Dr. Parra) who decided to make her comfort care. On 05/13/20, patient time of was called at H: Hypertension Diabetes mellitus type II CKD, unknown stage, not a dialysis patient Afib on xarelto CAD with PCI 2008 LAD stent PSHx: cholecystectomy (although unsure about this). tubal ligation. LABORATORY DATA, IMAGING STUDIES, MICROBIOLOGY: Please see below. ASSESSMENT: This is a 79 y/o F admitted to ICU with sepsis 2/2 to soft tissue cellulitis, bacteremia, c. difficile colitis, acute respiratory failure 2/2 to encephalopathy due to sepsis under [employer]. DIAGNOSES AT TIME OF : 1. Acute metabolic encephalopathy 2/2 to sepsis, septic shock. 2. Acute respiratory failure s/p intubation on admission 2/2 to septic shock, metabolic encephalopathy. 3. Septic shock 2/2 to sphingomonas paucimobilis (bacteremia), c. difficile colitis. Cannot rule out known pancreatitis, ? obstructive biliary cause, lower ext cellulitis or left lateral chest induration (see on CT) as infectious cause as of worsening leukocytosis. 4. C. difficile colitis, sepsis. 5. Acute kidney injury 2/2 to sepsis, septic shock. 6. Hypokalemia 7. Atrial fibrillation, chronic. 8. Left lateral chest induration see on CT chest. 9. Diabetes Mellitus type II, with hyperglycemia. 10. Elevated LFTs with hyperbilirubinemia 11. Candidiasis with superimposed cellulitis 12. Acute pancreatitis, in CT. 13. Elevated TSH, likely reative to sepsis. 14. DIC. 15. Anemia, possible acute blood loss anemia, suspected gastritis, UGIB. TIME SPENT ON DISCHARGE: Greater than 35 minutes. Vital Signs/I&Os Vital Signs Date Time Temp Pulse Resp B/P (MAP) Pulse Ox O2 Delivery O2 Flow Rate FiO2 05/11/20 15:37 20 Room Air 05/08/20 16:00 21 05/08/20 14:00 95 87/48 (61) 92 05/08/20 12:00 98.3 I&O- Last 24 Hours up to 6 AM 05/13/20 05:59 Intake Total 0 ml Output Total 200 ml Balance -200 ml Discharge Medications Scheduled Aspirin (Aspirin EC) 81 Mg Tablet.dr, 81 MG PO DAILY, (Reported) Atenolol (Atenolol) 25 Mg Tablet, 50 MG PO BID, (Reported) Cyanocobalamin (Vitamin B-12) (B-12 Compliance) 1,000 Mcg/1 Ml Kit, 1,000 MCG INJ MTHLY, (Reported) Digoxin (Digoxin) 125 Mcg Tablet, 125 MCG PO DAILY, (Reported) Metformin HCl (Metformin HCl) 500 Mg Tablet, 500 MG PO DAILY, (Reported) Rivaroxaban (Xarelto) 20 Mg Tablet, 20 MG PO QHS, (Reported) Torsemide (Torsemide) 5 Mg Tablet, 10 MG PO DAILY, (Reported) Ubidecarenone (Co Q-10) 10 Mg Capsule, 10 MG PO DAILY, (Reported) Allergies Coded Allergies: vancomycin (Verified Allergy, Severe, tongue swelling, 05/08/20) latex (Verified Allergy, Intermediate, RASH, 05/02/20) Clara Parra MD May 13, 2020 15:42
--- NOTE | 2020-05-14 09:53 | CR ---
DATE: 05/02/2020 HISTORY OF PRESENT ILLNESS: History was obtained from the chart and from other collateral information, as patient is altered and unable to provide a history. Ms. Stevens is an 79-year-old female with a past medical history of diabetes, coronary artery disease (CAD) status post stent, hypertension, chronic kidney disease (CKD), atrial fibrillation, on anticoagulation, who had presented to the emergency department (ED) with complaints of altered mental status and lethargy. Patient's had stated that she was recently hospitalized in March for a somewhat prolonged stay at an outside hospital. She was hospitalized for hyponatremia as well as hyperkalemia and urinary tract infection (UTI). She was discharged in the end of March with completing a course of antibiotics, but as per the , she continued to be very weak after her discharge. In the past week or so, she has been noticing worsening weakness and fatigue as well as decreased oral intake. She had denied any symptoms of abdominal pain. No nausea or vomiting. He did not notice any fevers, chills, or significant coughing. In the past few days, patient was more somnolent and confused, and earlier today she was noted to be unresponsive, and so emergency medical services (EMS) was called. In the ED, patient was hypothermic as well as hypotensive and lethargic. She was given intravenous (IV) fluid boluses, almost 3 liters of normal saline, and started on maintenance fluid with normal saline. Her blood pressure had initially improved; however, she was still hypotensive and was also bradycardic with a heart rate in the 30s and 40s. In the ED, she had an emergent femoral line placed in the right by the ED physician and was started on dopamine. Patient's blood pressure did improve with the dopamine, and her mental status improved slightly. She was answering in brief yes or no but continued to be quite somnolent at times and lethargic. She was then noted to have repeated runs of nonsustained ventricular tachycardia (VT) and worsening mental status. Her blood pressure was still maintained, and she continued to have a pulse with the nonsustained VT. Patient was given 1 gram of calcium chloride, and the dopamine was discontinued. She did not have any further runs of VT. The patient was started on Levophed instead, as she was still hypotensive off of the dopamine. . Given her altered mental status as well as her septic shock and arrhythmias, patient was intubated in the ED. She then had a left internal jugular (IJ) triple lumen placed for vasopressor access, as she did continue to have significant oozing and bleeding from her femoral central line. In the ED, patient was also given broad-spectrum antibiotics with 2 grams of Rocephin. She was also given insulin and D50 for her hyperkalemia. MEDICAL AND SURGICAL HISTORY: 1. Hypertension. 2. Diabetes, type 2. 3. CKD. 4. CAD with history of percutaneous coronary intervention (PCI) and stent. 5. Atrial fibrillation, on Xarelto. 6. Cholecystectomy. 7. Tubal ligation. ALLERGIES: Latex. HOME MEDICATIONS: Aspirin, atenolol, vitamin B12 injections monthly, digoxin, metformin, Xarelto, torsemide, CoQ10. SOCIAL HISTORY: Unable to be obtained. REVIEW OF SYSTEMS: Unable to be obtained due to altered mental status. PHYSICAL EXAMINATION: VITAL SIGNS: Temperature 90.3, pulse 106, respirations 18, blood pressure 111/67, oxygen saturation 96% on room air. GENERAL: Patient is an elderly female. Is lying in bed lethargic and intermittently responsive to verbal stimuli. Occasionally will answer yes or no questions. She does not appear to be using accessory muscles for respiration. HEENT: Normocephalic, atraumatic. Pupils are reactive. There are dry mucous membranes. Neck is supple. Trachea is midline. Unable to palpate any cervical lymphadenopathy or evaluate jugular venous distention (JVD) due to neck habitus. CARDIOVASCULAR: Tachycardic, irregularly irregular. Normal S1, S2. Unable to appreciate any murmurs grossly. PULMONARY: Diminished breath sounds, somewhat coarse bilaterally with few crackles at the bases. No wheezing or rhonchi noted. ABDOMEN: Obese. There is no tenderness to palpation. Positive bowel sounds auscultated. SKIN: She has what appears to be a fungal rash along the left side of her chest, particularly under her breasts in the intertriginous folds with erythema as well as some weeping, bloody discharge. She also has a rash extending into the right groin as well in the intertriginous region, again with some erythema and some discharge. In the lower extremities she has significant bilateral pitting edema with some fluid oozing as well as areas of bleeding and chronic venous stasis skin changes and erythema. LABORATORY DATA: WBC 16.6, hemoglobin 14.0, platelets 84. Chemistry: Sodium 132, potassium 7.4, chloride 101, bicarbonate 24, BUN 24, creatinine 2.51, glucose 121. AST 177, ALT 101, alkaline phosphatase 210. Total bilirubin 2.3. Ammonia was 53. Albumin is 1.5. Lactic acid 6.4. TSH 4.470. Digoxin level is 1.9. Coagulations: INR is 4.92, PTT is 60.6. Venous blood gas (VBG): A pH was 7.510, pCO2 of 42, pO2 of 97.8. Urinalysis showed hyalin cast and sediment was positive for leukocyte esterase and blood. IMAGING: CT head showed no acute pathology. There were small-vessel ischemic changes and some age-appropriate atrophy. CT chest showed atelectasis and scattered opacity in the right lower lobe with other minimal fibroatelectatic changes in the left lower lobe. There was also a right lower lobe subcentimeter nodule noted, more in the apical segment. The CT abdomen and pelvis report showed some peripancreatic inflammatory changes suggestive of acute pancreatitis. There is also diffuse nodular thickening of the left adrenal gland and some soft tissue induration along the left lateral breast/chest. ASSESSMENT AND PLAN: Ms. Stevens is an 79-year-old female with a past medical history of diabetes, hypertension, coronary artery disease (CAD), chronic kidney disease (CKD), who presented with complaints of altered mental status and lethargy. Patient has a previous history of hyponatremia and hyperkalemia as well as urinary tract infection (UTI) and was recently hospitalized at an outside hospital. After discharge, patient's reported she continued to be quite weak and over the course of the next week or so had worsening weakness with decreased oral intake as well as more confusion and lethargy. Patient presented to the ED with hypotension as well as hypothermia and bradycardia. She was given IV fluid boluses and only had transient improvement in her blood pressure and so was started on vasopressors. She was started on dopamine in the ED but had issues of nonsustained ventricular tachycardia (VT) with the dopamine and so was changed to Levophed instead for vasopressor support. Given her septic shock and her arrhythmias, patient was also intubated in the ED and placed on mechanical ventilation. Neurologic: - Metabolic encephalopathy in the setting of septic shock as well as acute renal failure with significant uremia. - Patient is now intubated and will be on sedation with propofol to target a [place] of 2-3. Will also have as needed for analgesia and Versed as needed for agitation. - Will continue with daily sedation vacation and weaning trials as tolerated. Cardiac: History of CAD with PCI in the past. Patient now with septic shock requiring vasopressor administration. Patient also with lactic acidosis secondary to her septic shock. - Left internal jugular (IJ) triple lumen was placed for vasopressor administration. Will remove her right femoral triple lumen, as it was temporary, only for emergent access. - Will continue with Levophed and will add Vasopressin as well and target a mean arterial pressure (MAP) above 65. Will continue to titrate her pressors and will also continue to trend her lactic acid. - Will trend troponin, as with her septic shock she may have a component of demand ischemia. - Patient did have episodes of non-sustained VT, which were likely in the setting of the dopamine as well as her electrolyte abnormalities. She was given additional IV calcium chloride for her hyperkalemia, and the dopamine was discontinued. She has not had any further runs of VT while on the Levophed. We will need to continue to monitor her electrolytes, including magnesium, and replete as needed. Pulmonary: Patient was intubated and placed on mechanical ventilation given her septic shock and arrhythmias. - Post intubation chest x-ray showed the endotracheal (ET) tube was almost in the right mainstem. Her ET tube has been adjusted and will continue with daily chest x-rays while intubated. - Her post intubation arterial blood gas (ABG) is acceptable. Will continue to wean down her FiO2 as tolerated and continue with daily ABGs while intubated. - Continue with ventilator bundle care with chlorhexidine mouthwash and head of bed elevation. - Patient is on volume control settings at 420/18/50 and 5. Will wean down FiO2 to maintain oxygen saturation above 92%. Infectious disease (ID): Patient with septic shock. She has a previous history of UTI, and so possible urinary source, although her urine had mild leukocyte esterase only and no evidence of bacteria. She does have significant likely fungal rash on her side on the right, but there is significant skin breakdown, so she may likely have a component of cellulitis as a possible source of infection. Her CT abdomen and pelvis also suggested possible pancreatitis. - Will continue with broad-spectrum antibiotics with Zosyn renally dosed. Patient was given linezolid for gram-positive and Methicillin-resistant Staphylococcus aureus (MRSA) coverage, but will switch to vancomycin and continue to monitor levels of vancomycin accordingly and renally dose the medication. - Will followup blood cultures as well as urine culture. - Will followup procalcitonin. Gastrointestinal (GI): Patient with abnormal liver function tests (LFTs) on admission. Given her shock, likely component of shock liver. Her CT abdomen and pelvis did not show any acute pathology in the liver, and her gallbladder is absent. Patient's CT, however, did show evidence of possible pancreatitis. - Will check amylase and lipase. - Will continue to trend LFTs. - Patient will have an orogastric (OG) tube placed to low wall intermittent suction with close monitoring for any bleeding given her coagulopathy. - Will continue proton pump inhibitor (PPI) for GI prophylaxis. Endocrine: History of diabetes. The patient did have elevated thyroid- stimulating hormone (TSH) on admission, and so will also check a free T4, but suspect is likely sick euthyroid syndrome in setting of her severe sepsis. Will also check a cortisol level given her hypotension, hypothermia, and bradycardia, although suspect this is likely in the setting of her sepsis. If patient is requiring increasing pressors, would start her on stress-dose steroids with hydrocortisone 50 mg IV every 8. - Continue with fingerstick glucose check and sliding-scale coverage as needed. Renal: History of CKD. Presents with likely acute on chronic renal failure with significant hyperkalemia. Patient was given D50 and insulin initially as well as calcium. - A Mcpherson was placed, and she does appear to have some slight increased urine output now with the vasopressors. Will continue to monitor urine output as well as monitoring her electrolytes and renal function. - Will hold nephrotoxic medications and renally dose other medications. Patient's acute kidney injury (LUCRECIA) on CKD is likely in the setting of prerenal with her decreased oral intake. Given her septic shock, she may also have a component of acute tubular necrosis (ATN) as well. Hematology: Patient was on Xarelto for anticoagulation. She has coagulopathy as well as some thrombocytopenia now. Her thrombocytopenia is likely in the setting of her severe sepsis, and her coagulopathy may be in the setting of her shock liver as well as possibility of disseminated intravascular coagulation (DIC) given her sepsis. Will check a fibrinogen level and also get a type and screen. - Will continue to monitor her coagulation and platelets and transfuse as needed. Deep venous thrombosis (DVT) prophylaxis: Thromboembolic deterrent stockings (TEDS) and sequential compression devices (SCDs). GI prophylaxis: Protonix. CODE STATUS: Full code. Total critical care time spent, not including any procedures, approximately 2 hours and 30 minutes. LOUISA
--- NOTE | 2020-05-23 13:15 | ECGEPIP ---
[facility] - ED Test Date: 2020-05-02 Pat Name: JAY MOREJON Department: Room: - Gender: Female Intake Coordinator: delphine : 1940 Requested By: Apolonia Quarles Order Number: [id number] Reading MD: Apolonia Quarles Measurements Intervals [place] Rate: 36 P: MD: 0 QRS: 11 QRSD: 117 T: 207 QT: 499 QTc: 390 Interpretive Statements ATRIAL FIBRILLATION WITH SLOW VENTRICULAR RESPONSE MODERATE INTRAVENTRICULAR CONDUCTION DELAY ST DEVIATION AND MODERATE T-WAVE ABNORMALITY, CONSIDER LATERAL ISCHEMIA ABNORMAL ECG SEE SCANNED DOWNTIME REPORT
--- NOTE | 2020-06-06 07:25 | CCN ---
DATE: 05/02/2020 SUBJECTIVE: The patient is seen in the intensive care unit an 79-year-old female admitted earlier through the emergency department. She has a past medical history per the record of diabetes, hypertension, B12 deficiency, coronary artery disease status post stenting in 2008, atrial fibrillation on Factor Xa inhibitors, and right lung surgery remotely. She was recently hospitalized at [facility] for electrolyte abnormalities and a urinary tract infection. Since her discharge, she has been weak and her has noted a decline in mentation and level of consciousness. In the emergency department, she was hypotensive, hypothermic, bradycardic, and obtunded. She was started on dopamine and she developed ventricular tachycardia and was changed to Levophed and vasopressin. She has been given empiric Rocephin, vancomycin, and Zosyn. An endotracheal tube was placed to protect her airway. OBJECTIVE: Now in the intensive care unit, her temperature is 88, pulse rate 70, respirations are 18/18 delivered, blood pressure 91/44 on vasopressin drip and Levophed drip. Her CVP measures 9. At bedside, her pupils are equal and small, but they do react to light. There is an endotracheal tube and orogastric tube in place. Mucosa is moist. Neck is supple. There is a left internal jugular vein catheter in place and the site is clean. There is no jugular venous distention appreciated on the right. Heart sounds are irregular and slow. Breath sounds diminished with dullness in the right base. Abdomen is soft. There are bowel sounds. She is obese. There is no obvious tenderness or guarding to palpation. Extremities are cold. Pulses are diminished. DIAGNOSTIC STUDIES: Chest x-ray reveals tubes and lines in good position. There is a volume loss on the right and an elevation in the right hemidiaphragm. CT imaging was reviewed suggesting inflammation around the level of the pancreas. LABORATORY DATA: Her white cell count is 17, hemoglobin 12, hematocrit 34, platelet count 75,000, differential white cell count shows 88% neutrophils. The electrolytes are sodium 136, potassium 5.1, chloride 105, CO2 of 23, BUN is 93, creatinine 2.5, glucose 157. Lactic acid 6.5. Calcium is 9.3. Magnesium 1.5. Bilirubin 2, AST is 143, ALT was 93, and alkaline phosphatase 193. The troponin is 0.1. Protein 4.4, albumin 1.4. Arterial blood gases show a pH of 7.45, pCO2 of 27, pO2 of 242. PT is 36, PTT 60, INR 3.6. Fibrinogen is 1.89. Her Digoxin level was 1.9. ASSESSMENT AND PLAN: The primary problem requiring critical attention is septic shock. She has received broad-spectrum antibiotic at renal dosing. Fluid resuscitation at this point is adequate as her central venous pressure measures 9. We will attempt to wean her pressures for a mean atrial pressure of 65. Acute respiratory failure. I will change her mode of ventilation to allow reduced administration of sedation and change from Propofol to Versed. We will recheck arterial blood gases. Acute kidney injury. I suspect acute tubular necrosis. She is at this point oliguric. Hypothermia. She is receiving external warming. Bradycardia. Possible beta-oksana effect. She was prescribed beta-oksana on an outpatient basis. Perhaps if she took an elevated dose, this could account for some of her bradycardia. If blood pressure and heart rate do not respond, we may give a trial of Glucagon. Deep vein thrombosis (DVT) prophylaxis. She has sequential hose in place. INR is elevated. Ulcer prophylaxis being addressed with Protonix. Glycemic control is being addressed with fingerstick blood sugars and coverage. The patients condition is critical. Prognosis is poor. One hour and 11 minutes spent in the provision of bedside critical care and coordination. LOUISA
--- NOTE | 2020-06-06 07:28 | CCN ---
DATE: 05/03/2020 SUBJECTIVE: Patient is seen in the intensive care unit intubated and mechanically ventilated critically ill. Over the night, additional fluid boluses were administered with minimal response. Levophed dose requirement has increased. She is on day #2 of vancomycin and #2 of Zosyn. OBJECTIVE: Vital signs: Temperature 95.7, pulse rate 55, respirations 20/20 delivered, blood pressure 120/49. I and O for the past 24 hours 5993 in and 82 mL out. Since midnight, 2515 in and 100 out. She is ill-appearing and sedate from Versed. Her endotracheal is at 23 cm and orogastric tube is in good position. The mucosa are moist. Neck is supple. There is no meningismus. Jugular veins are not distended. The left internal jugular catheter is in good position, site is clean, and no induration. Heart sounds are irregularly irregular with monitor revealing atrial fibrillation. Breath sounds are diminished in the right base, mildly course, some large airway sounds, and no other focal sounds are appreciated. Abdomen is soft and bowel sounds are appreciable in the right lower quadrant. There is no palpable mass. Extremities are cold. There is a rash over the lower abdomen and thigh. Peripheral pulses are diminished. Nails are not clubbed. LABORATORY DATA: Sodium 129, potassium 5.6, chloride 99, CO2 of 23, BUN 95, creatinine up to 2.73, glucose is 268. Her lactic acid is down from 6.5 to 5.3. Calcium is 8.1. The albumin is 1.4. Phosphorus is 3. Magnesium is improved slightly at 1.6. Bilirubin is up at 2.4. AST is mildly diminished at 139 and ALT is likewise at 91. Alkaline phosphatase is 195. LDH is 379. Her cardiac enzymes have been negative. CBC shows a white count of 17.8 with 75.3 neutrophils, hemoglobin is 12.7, hematocrit 34.1, platelet count 66,000 down from 75,000. Arterial blood gases this morning show a pH of 7.52, pCO2 of 23, pO2 of 160, and this is on an intermittent mandatory ventilation mode. Tidal volume 380, PEEP of 5, PSV of 14, FiO2 of 0.3. Blood cultures are pending as is serum cortisol level. DIAGNOSTIC STUDIES: Chest imaging was reviewed and shows volume loss in the right lower lung. Endotracheal and nasogastric tubes are in good position. There are no new infiltrates in the lung to my eye and formal report is pending. ASSESSMENT AND PLAN: The primary problem requiring critical attention is septic shock. Levophed dose had been increased through the night. We will increase fluids and try a change to vasopressin. We will be rechecking central venous pressure (CVP) thereafter and after optimizing her vascular volume and reduce exposure to pressors. Acute respiratory failure: Arterial blood gases are acceptable. At this point, a mild respiratory alkalosis is intentional given her electrolyte abnormalities. Bradycardia: Etiology is unclear. She is in atrial fibrillation and has been. This could be related to adrenal insufficiency. Cortisol levels are pending. We will empirically begin steroids pending the review of those results. There is also a possibility that she may have taken excessive beta-blockers. As she remains critically ill, we will give a try to Glucagon to reverse her bradycardia hypotension. Acute kidney injury/acute tubular necrosis: Patient remains oliguric, but is making some urine. Creatinine has increased slightly over the past 12 hours. Hypothermia: Will continue with external warming to a target temperature of 96. Deep vein thrombosis (DVT) prophylaxis is being addressed with sequential hose. The patients coagulopathy is also noted. Ulcer prophylaxis being addressed with Protonix. Glycemic control is being addressed with fingerstick blood sugars and coverage. The patients condition remains critical. Prognosis is poor. One hour and 47 minutes was spent in provision of bedside critical care and coordination. [facility]ENTERShruthi
--- NOTE | 2020-06-06 07:31 | CCN ---
DATE: 05/04/2020 SUBJECTIVE: The patient is seen in the intensive care unit (ICU) intubated, mechanically ventilated, critically ill. This is hospital day #3, endotracheal tube and central line placement day #3. Over the past 24 hours, she has received copious volume resuscitation. At this point, she is now responding with eye opening to pain and pressors have been reduced. OBJECTIVE: At bedside, her temperature is 95.1, pulse rate 80, respirations 20/20 delivered, blood pressure 96/47 on Levophed 4 mcg/min. I and O for the past 24 hours 7308 in and 488 out, since midnight 1355 in and 115 out. Her central venous pressure is 16. She is ill-appearing. Mucosa is pink. Dentition are in fair repair. Her endotracheal tube is at 23 cm. Orogastric tube is in place unchanged. Drainage through the orogastric tube is brown. Jugular veins are 1 cm above the sternal angle at 45 degrees. On auscultation her breath sounds are asymmetric with dullness in the right base. In general, breath sounds are coarse. There are no focal sounds. Heart sounds are irregularly irregular consistent with her arrhythmia of atrial fibrillation. Abdomen is soft. There is no palpable mass. There are bowel sounds in the right lower quadrant albeit mildly diminished. There is no palpable adenopathy. She is globally weak. Does not withdraw to pain. Her extremities are cool and edematous. There is a rash over her lower abdomen and thighs. DIAGNOSTIC STUDIES: Her sodium is 130, potassium 4.9, chloride 102, CO2 of 20, BUN 91, creatinine 2.65, glucose 209; ranged 209 to 294. White cell count is down to 12.2. There are still 81% neutrophils. Hemoglobin is significantly reduced at 9.2, hematocrit 24.4, platelet count is 35,000. The calcium level this morning 7.6, phosphorus 3.1, bilirubin up slightly to 2.8, AST down at 76, ALT 57, alkaline phosphatase 114. The LDH is down slightly to 275. CK of 22. The total protein 4.1, albumin 1.8. Her serum cortisol level was 44. Procalcitonin 0.37. PT 25, INR 2.3. Cultures of the blood are negative twice in five days. Urine culture was negative. Chest x-ray was reviewed. The formal report is pending. The tubes and lines appear to be in good position to me. The parenchyma of the lungs are more full than yesterdays image, but there is no overt interstitial edema. There is some fluid measured on the right. MEDICATION REVIEW: She is receiving Albuterol via metered dose inhaler, Protonix, insulin via scale, Versed p.r.n., Fentanyl p.r.n., Zosyn at 2.25 g every six hours (this is day #3), norepinephrine drip 4 mcg/min, hydrocortisone 100 mg every eight hours, and saline at 150 mL/hour. ASSESSMENT AND PLAN: The primary problem requiring critical attention is septic shock. The patient has been volume loaded to a central venous pressure (CVP) of 16. Vasopressin is off. Levophed is down to 4 mcg/min. We will continue to target a filling pressure of 16 with intravenous (IV) fluids. The etiology of her sepsis is unclear, as cultures have been negative. We will discontinue the vancomycin at this point. Respiratory failure: The patient is running a mild respiratory alkalosis, which is intended based on her low serum bicarb and inability to compensate metabolically. Her alveolar-arterial (A-a) gradient is quite good. Acute kidney injury: I suspect this is related to acute tubular necrosis. Urine output is at this point nonoliguric. Her creatinine is slightly better. I will recheck her electrolytes at 6 p.m. Thrombocytopenia: I suspect this is related to a low-grade disseminated intravascular coagulation (DIC). Her platelet count is quite low, but there is no active bleeding at this point. We will recheck H&H at 6 p.m. We will use a conservative transfusion threshold. Bradycardia: The patient responded to Glucagon and therefore, I suspect that this was related to beta-oksana effect. Her heart rate is now more commensurate with her critical illness and we will continue to monitor. Hypothermia: I suspect this is multifactorial. We will continue with external warming. Adrenal insufficiency: The patients baseline cortisol is not as high as I would have expected. She has been started on hydrocortisone replacement and we will continue with a planned five day duration. Nutritional support: We will begin tube feedings. Glycemic control: The patients blood sugars are mildly elevated. She has a history of type 2 diabetes as a preexisting condition. She may require additional basal insulin. We will await her response to the addition of tube feedings. Deep vein thrombosis (DVT) prophylaxis. The patients INR is still elevated and sequential hose are in place. Given her thrombocytopenia, we will not add additional medications to address this. Ulcer prophylaxis being addressed with Protonix. Patients condition is quite critical. Prognosis remains poor given her multiple comorbidities. One hour and 22 minutes were spent in the provision of bedside critical care and coordination. LOUISA
--- NOTE | 2020-06-06 08:07 | CCN ---
DATE: 05/05/2020 SUBJECTIVE: The patient was seen in the Intensive Care Unit, intubated and mechanically ventilated. Obtunded but responding and moving spontaneously. Her Cass coma scale is 11. This is hospital day #4. Endotracheal tube and right internal jugular vein catheterization day #4. PHYSICAL EXAMINATION: VITAL SIGNS: Temperature 98.4, pulse rate is 105, respirations 20/20 delivered, blood pressure 110/56. I & O for the past 24 hours 4,160 in and 645 out. Since midnight 1,090 in, 235 out. Her central venous pressures 15. Weight is currently 97 kg. On admission she was 88. GENERAL APPEARANCE: She is ill appearing. HEENT: Her mucosa are moist. There is an endotracheal tube at 23 cm and orogastric tube in good position. NECK: Supple although deviated to the left. I am able to move her head and neck without difficulty. She has jugular venous distention. LUNGS: Her breath sounds are asymmetric with dullness in the right base. There is no fremitus. HEART: Irregularly irregular. ABDOMEN: Soft with no palpable mass. There are bowel sounds in all four quadrants. EXTREMITIES: Rash in the right thigh, unchanged. Pulses are palpable. Nail perfusion is slow but adequate. DIAGNOSTIC STUDIES: Her white cell count is up slightly at 15.5, hemoglobin is down slightly at 9, hematocrit is 24.2. Platelet count is slightly elevated at 39,000. Differential white cell count shows 84.7 neutrophils. Her electrolytes are sodium 134, potassium 4.7, chloride 105, CO2 20, BUN is 89 and creatinine is 2.7, glucose 215. Her calcium is 7.5 already, albumin is 1.6, phosphorous is 2.9, magnesium 1.9, bilirubin is 2.8 and stable. AST is 75, ALT 57, LDH 317. Arterial blood gases this morning showed a pH of 7.46, pco2 25, pO2 94. Her coagulation studies: PT is 21.9 with an INR of 1.8. Fibrinogen level is 142. Blood cultures were negative x2. Urine culture negative x2. IMAGING: Chest x-ray shows tubes and lines in good position. MEDICATIONS: On medications review she is receiving: Zosyn at renal doses, day #4. Hydrocortisone 100 q. 8, day #3 of 5. Albuterol metered dose inhaler. Protonix. PROBLEMS: The primary problem requiring critical attention is septic shock. Pressors are now off. Her fluid volume appears adequate. We will continue IV Zosyn. Cultures are thus far negative. Acute respiratory failure. We will wean to IMV and decrease the rate. Recheck arterial blood gases at noon. Acute kidney injury. She has a non oliguric ATN. Her volume status is very positive. We will give her a dose of Lasix today. Hypothermia, possible related to adrenal insufficiency. This day #3 of 5 of cortisol replacement. She is no longer requiring external warming. DIC. Platelet count is no lower. The H&H is acceptable. Fibrinogen remains low. Nutritional aspect. We will increase her tube feeds from 30-60. DVT prophylaxis is being addressed. A sequential hose given her thrombocytopenia, I am avoiding Heparin products. Also prophylaxis being addressed with Protonix. CONDITION: The patients condition remains critical. PROGNOSIS: Guarded. One hour and fifty-four minutes was spent in the provision of bedside critical care and coordination with the care team, exclusive of any time for the performance of procedures. LOUISA
--- NOTE | 2020-06-06 08:10 | CCN ---
DATE: 05/07/2020 SUBJECTIVE: The patient is seen in the Intensive Care Unit. This is hospital day #6, endotracheal day #6, CVP day #6. She is ventilated, obtunded and the patient is variable. She does have good consistent respiratory efforts. PHYSICAL EXAMINATION: VITAL SIGNS: Temperature is 96/5, pulse rate 78, respirations 20, blood pressure 106/60, off pressors. Oxygen saturation 92%. HEENT: She is ill appearing. Her endotracheal tube is at 22 cm. Mucosa is moist. Orogastric tube is in good position. Tube feedings are flowing. There is no stridor of the trachea. NECK: No adenopathy. HEART: Irregularly irregular, consistent with atrial fibrillation. LUNGS: Breath sounds are diminished in the right base, otherwise coarse throughout. No focal sounds. CHEST: Symmetric, moves symmetrical. There is no accessory muscle use on the current ventilator settings. ABDOMEN: Soft. There are bowel sounds which are quite active. EXTREMITIES: Cool, diminished pulses and copious edema. DIAGNOSTIC STUDIES: Her sodium is 143, potassium 3.4, chloride 112, CO2 85, chloride 112, bicarbonate 21, BUN 85, creatinine 2.59, glucose 249. White cell count is 19.5, hemoglobin 10.1, hematocrit 27.4, platelet count 47,000. Arterial blood gases showed a pH of 7.38, pco2 30, pO2 82. This on pressure support mode of ventilation 10/5, 30% FiO2. AST of 70, ALT 64, albumin 1.6, magnesium is 2. INR remains elevated at 1.61. Fibrinogen remains low at 123. IMAGING: Chest x-ray shows tubes and lines being in good position. There is no new infiltrate. Blood cultures are showing Sphingomonas Paucimobilis, a gram negative lisa. MEDICATIONS: On medications review: This is day #6 of Zosyn. She is now receiving Albuterol via metered dose inhaler. Protonix. Versed 2 mg q. 15 as needed. This is day #5 of Hydrocortisone. ASSESSMENT: The primary problem requiring critical attention is septic shock. Blood pressures are showing gram negative. We will cautiously add an immune glycoside. We will begin with a loading dose and target a low trough. I have discussed this with Pharmacology, who will assist with dosing. Acute respiratory failure. Her blood gases are good on a spontaneous mode, however her mentation is lacking and I am reluctant to proceed with extubation. Acute kidney injury. She is non oliguric at this point. Her creatinine is stable, but poor. Electrolytes and volume are acceptable. She does have significant edema to clear. Diarrhea. Nursing reports copious diarrhea. I suspect this is related to tube feedings. DIC is persistent. Her coagulation studies remain abnormal. I suspect that this may be related to the gram negative infection. Nutritional support is being addressed with tube feedings. Also prophylaxis being addressed with Protonix. DVT prophylaxis. On coagulopathy plus sequential holds is sufficient to act as preventative. CONDITION: The patients condition remains critical. PROGNOSIS: Guarded. One hour and 25 minutes was spent in the provision of bedside critical care and coordination, excluding procedure time. MTDD
--- NOTE | 2020-06-06 08:13 | CCN ---
DATE: 05/06/2020 SUBJECTIVE: The patient is seen in the intensive care unit (ICU), intubated, mechanically ventilated, and critically ill. This is hospital day #5. She is more responsive to voice this morning with spontaneous respiratory efforts. OBJECTIVE: VITAL SIGNS: Temperature 97, pulse rate 80, respirations 19, blood pressure 114/58 off pressors. Intake and output for the past 24 hours 3520 in, 1450; since midnight 1130 in, 550 out. GENERAL: At bedside, she remains ill-appearing. HEENT: Her oral mucosa are pink. Her gaze is directed left, but she does respond to voice and attends with her eyes. Endotracheal tube is at 23 cm. Orogastric tube is in good position. Tube feeds flowing. NECK: Supple. No meningismus. HEART: Sounds are irregularly irregular consistent with her monitor showing atrial fibrillation. LUNGS: Breath sounds are diminished in the right breast. Otherwise, some coarse large airway sounds are appreciated. No dullness. No fremitus. ABDOMEN: Soft and obese. There are bowel sounds in the right lower quadrant. No palpable mass. EXTREMITIES: Cool and edematous. Peripheral pulses are diminished, but palpable and the nails show no clubbing. DIAGNOSTIC STUDIES: CBC shows a white count of 18, hemoglobin 10.2, hematocrit 27.6, platelet count up to 46,000. Differential white cell count continues to show 86% neutrophils. The electrolytes are sodium 141, potassium 3.6, chloride 109, CO2 of 20, BUN 87, creatinine 2.66, glucose 286, calcium 7.5, phosphorus 2.9, magnesium 1.9, bilirubin 2.7, AST 73, ALT 64, and the alkaline phosphatase is 271. LDH is up slightly at 381. CPK is 43. Protein 4.5, albumin is 1.7. Arterial blood gases show a pH of 7.38, pCO2 of 26, pO2 of 111. This is an IMV mode of ventilation rate 14, tidal volume 380, PEEP 5, PSV 14, FiO2 of 0.21. Chest x-ray was reviewed. There was no report available. Tubes and lines appear in good position. There is no obvious infiltrate. MEDICATIONS: On medication review, this is day #[address] [facility]. She is receiving hydrocortisone 100 mg q. 8 hours, Protonix 40 mg daily, and Albuterol via metered dose inhaler. ASSESSMENT AND PLAN: The primary problem requiring critical attention is septic shock. Pressors have now been weaned off. Her central venous pressure measures 16. I will decrease her IV fluids and continue with broad-spectrum antibiotic with Zosyn. Acute respiratory failure: Arterial blood gases are good. We will change her mode to pressure support and monitor end-tidal CO2. Acute kidney injury: The patient is nonoliguric with acute tubular necrosis. Brisk response was seen to Lasix. Disseminated intravascular coagulation (DIC): Coagulation studies have been improving. Her platelet count is up some. We will check fibrinogen and PT/INR in the morning. Atrial fibrillation: Rate is controlled. Nutrition: Patient is receiving tube feeds at 60 mL/hour and tolerating them. Glycemic control: Less than optimal, but we will continue monitoring. Deep vein thrombosis (DVT): This is being addressed with sequential hose. Ulcer prophylaxis: Being addressed with Protonix. The patients condition remains critical. Her prognosis is guarded. One hour and 24 minutes was spent in the provision of bedside critical care and coordination, excluding procedure time. LOUISA
--- NOTE | 2020-06-06 08:16 | CCN ---
DATE: 05/08/2020 The patient is seen in the intensive care unit. She remains intubated, variably responsive. She is no off pressors since hospital day #7, intensive care unit (ICU) care day #7. At bedside her temperature is 95.6, pulse rate 9, respirations 18, blood pressure 92/55. Central venous pressure is 9. Intake and output for the past 24 hours: 1480 in, 240 out. She is ill appearing. Her oral mucosa is pink. Neck is supple. No meningismus. Heart sounds are irregularly irregular, consistent with atrial fibrillation. Breath sounds are diminished in the right base. Otherwise no focal adventitial breath sounds are appreciated. The abdomen is soft with hyperactive bowel sounds. Extremities are cool, very edematous. Rash is noted in the right thigh and lower abdomen, essentially unchanged. DIAGNOSTIC STUDIES: Her sodium is 145, potassium 4.2, chloride 115, CO2 of 23, BUN 93, creatinine 2.75, glucose 131. White cell count 18.9, hemoglobin 8.9, hematocrit 24.2, platelet count is 51, up from 47. AST is 79, ALT is 67, alkaline phosphatase 389. LDH 383. Her protein is 3.9, albumin is 1.4. Gentamicin random level is 2. Arterial blood gases showed a pH 7.43, pCO2 of 29, pO2 of 75. This on a pressure support mode of ventilation. Peak pressure of 10 over PEEP of 5. FiO2 of 0.3. Chest imaging is little changed from yesterday. The primary problem requiring critical attention is sepsis with shock. She is now off pressors, responding variably to fluid resuscitation. I agree with adding additional fluids this morning based on central venous pressure (CVP) of less than 10. Respiratory failure. She does have good and consistent spontaneous efforts. Her mentation is lagging, however, and she is unable to perform ventilator mechanics. She may be able to extubate. Acute kidney injury. She is nonoliguric at this point. Creatinine is high but stable. Atrial fibrillation. Rate controlled. Nutritional support is being addressed with tube feedings. She is tolerating. Ulcer prophylaxis is being addressed with Protonix. Glycemic control is improved. The patient's condition remains critical. Prognosis remains guarded. One hour and 37 minutes was spent in the provision of bedside critical are and coordination, excluding procedure time. [facility]
--- NOTE | 2020-06-21 07:08 | RO ---
DATE OF OPERATION: 05/02/2020 INDICATIONS FOR PROCEDURE: Septic shock, arrhythmia. PREPROCEDURE DIAGNOSES: Septic shock. Nonsustained ventricular tachycardia (VT). POSTPROCEDURE DIAGNOSES: Septic shock. Nonsustained ventricular tachycardia (VT). PROCEDURE: Endotracheal intubation. ATTENDING PHYSICIAN: Yancy Toscano MD CONSENT: Due to emergent nature of the procedure, consent was implied. Patient is a confirmed FULL CODE. PROCEDURE SUMMARY: The patient was placed on a conveyor monitor including continuous pulse oximetry. Rapid sequence intubation was conducted. The patient received 30 mg of etomidate for induction and additional 2 mg of Versed for sedation. Cricoid pressure was maintained. Using a size 3 MAC laryngoscope and a size 7.5 endotracheal tube with stylet, the patient was intubated on the first passed attempt. The stylet was removed and the cuff balloon was inflated. Appropriate endotracheal tube position was confirmed by direct visualization of vocal cord passage, fogging of the tube, CO2 colorimetric indicator, and symmetric breath sounds. The tube was initially secured at 24 cm at the lips. Postintubation chest x-ray showed the endotracheal (ET) tube was in the gatito almost in the right mainstem. The ET tube was pulled back to 22 cm. Repeat chest x-ray showed the ET tube was just above the gatito and the ET tube was further pulled back to 21 cm at the teeth. [facility]
--- NOTE | 2020-06-21 07:17 | RO ---
DATE OF OPERATION: 05/02/2020 INDICATIONS: Vasopressor administration. PREPROCEDURE DIAGNOSIS: Septic shock. POSTPROCEDURE DIAGNOSIS: Septic shock. PROCEDURE: Internal jugular central line. ATTENDING PHYSICIAN: Yancy Toscano MD CONSENT: The procedure was performed emergently and the permission was implied because of the emergent nature. PROCEDURE SUMMARY: A central line insertion practice form was completed by independent observer starting with the first hand wash prior to starting sterile technique. A time-out was performed. Full sterile technique was maintained throughout the procedure including surgical cap, mask with protective eye wear, full gown, and sterile gloves. The patient was placed in Trendelenburg position. The left neck region was prepped using chlorhexidine scrub and draped in sterile fashion using a fenestrated drape and a sterile pump cover was employed. The internal jugular vein on the left was identified using ultrasound. Anesthesia was achieved over the vein using 1% Lidocaine. Using real-time monoplane guidance, the introducer needle was inserted into the internal jugular vein under direct ultrasound vision. Venous blood was withdrawn. The syringe was removed and a guidewire was advanced into the introducer needle. The needle was removed over the guidewire and a small incision was made at the skin surface with a scalpel. The dilator was exchanged over the guidewire and after appropriate dilation was obtained, the dilator was then exchanged over the wire for a triple lumen central venous catheter. The wire was removed and the catheter was sutured in place at 20 cm. A sterile chlorhexidine-impregnated dressing was placed over the catheter at the insertion site. The patient tolerated the procedure without hemodynamic compromise. At the time of procedure completion, all ports were aspirated and flushed properly. Postprocedure chest X-ray shows the left internal jugular (IJ) triple lumen in satisfactory position. ESTIMATED BLOOD LOSS: Less than 2 mL. MTDD
== END 2020-05-13 15:02 | disposition expired | DRG 870 ==
LOC: EDBD 08:49 → M ED 08:49 → M ED INP 13:18 → M ICU 15:55 → M MSPAV 05-09 01:18
PROVIDERS: ADMIT Internal Medicine; ATTEND Internal Medicine
PROC: 5A1955Z Respiratory Ventilation, Greater than 96 Consecutive Hours (ICD-10-PCS; principal; 2020-05-02)
PROC: 0BH17EZ Insertion of Endotracheal Airway into Trachea, Via Natural or Artificial Opening (ICD-10-PCS; 2020-05-02)
PROC: 02H633Z Insertion of Infusion Device into Right Atrium, Percutaneous Approach (ICD-10-PCS; 2020-05-02)
DX: A41.89 Other specified sepsis (principal); R65.21 Severe sepsis with septic shock; G93.41 Metabolic encephalopathy; K72.00 Acute and subacute hepatic failure without coma; N17.0 Acute kidney failure with tubular necrosis; K85.90 Acute pancreatitis without necrosis or infection, unspecified; D65 Disseminated intravascular coagulation [defibrination syndrome]; J96.00 Acute respiratory failure, unspecified whether with hypoxia or hypercapnia; K29.71 Gastritis, unspecified, with bleeding; E87.2 Acidosis; I47.2 Ventricular tachycardia; E87.1 Hypo-osmolality and hyponatremia; A04.72 Enterocolitis due to Clostridium difficile, not specified as recurrent; D62 Acute posthemorrhagic anemia; L03.313 Cellulitis of chest wall; Z51.5 Encounter for palliative care; Z66 Do not resuscitate; I48.91 Unspecified atrial fibrillation; E87.5 Hyperkalemia; E07.81 Sick-euthyroid syndrome; E11.65 Type 2 diabetes mellitus with hyperglycemia; B37.2 Candidiasis of skin and nail; I25.10 Atherosclerotic heart disease of native coronary artery without angina pectoris; I12.9 Hypertensive chronic kidney disease with stage 1 through stage 4 chronic kidney disease, or unspecified chronic kidney disease; E80.6 Other disorders of bilirubin metabolism; N18.9 Chronic kidney disease, unspecified; R68.0 Hypothermia, not associated with low environmental temperature; Z79.82 Long term (current) use of aspirin; Z79.84 Long term (current) use of oral hypoglycemic drugs; Z79.01 Long term (current) use of anticoagulants; Z79.899 Other long term (current) drug therapy; Z91.040 Latex allergy status; Z95.5 Presence of coronary angioplasty implant and graft; E11.22 Type 2 diabetes mellitus with diabetic chronic kidney disease